=== PATIENT | female | born 1970 | race Caucasian/White ===

== ENCOUNTER → 2025-10-16 22:59 | Outpatient (REF) | payer SELFPAY ==
--- OUTSIDE RECORDS SUMMARY | 2025-10-16 23:03 | XMS RPT_ITS | CCD ---
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 UNIVERSAL PROTOCOL / SAFETY CHECKLIST Procedure to be Performed: colposcopy, LEEP loop electrosurgical excision procedure conization of cervix Sign In: A Moment of CARE was completed. Personnel directly involved with the procedure wore the appropriate PPE (Personal Protective Equipment). No special equipment needed. Patient/Surrogate Stated/Verified: PATIENT VERIFIED(optional for EMERGENT procedures): Patient name, Date of , Relevant allergies, and The intended procedure Time Out Communication: Intended patient and procedure match the source documents. Consent documented and matches the intended procedure. Relevant labs, photos, and/or imaging studies have been reviewed. No correct side/site applicable for marking and visibility. No medications required for procedure. No fire risk assessment and interventions applicable. No implant(s) inserted. Sign Out: SIGN OUT (optional for EMERGENT procedures): All specimen containers correctly labeled. All instruments, equipment, possible retained foreign bodies accounted for. Post-procedure follow-up management communicated and Plan of Care Visit completed when applicable. PROCEDURE NOTE: Colposcopy used to visualize cervix. Acetic acid and lugols solution applied to identify the dysplastic area. Inspection indicates that it is reasonable to proceed with office LEEP. Patient and personnel in the room all donned N95 masks. Smoke evacuation was operating normally during the procedure. Cervix anesthetized with 10 mL lignospan (2% lidocaine and epinephrine) 1:100,000 (1.8mL/vial) using a 27gauge Potocky needle. LEEP conization performed using 1 X 1 loop(s) with wide area excised between 9-12 due to prior EMY II biopsy site. ECC done. Hemostasis was achieved with Monsel's solution, pressure, and electrocautery. Procedure Summary: Patient tolerated procedure well. ASSESSMENT: Encounter Diagnosis ICD-10-CM 1. 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 PLAN: Specimens labeled and sent to Pathology. Will notify patient of results in 1-2 weeks. Post-procedure instructions reviewed and written material given to the patient. MD Soniya Deleon Sharon A, MD 12/09/2024 1:45 PM Signed YOUR RECOVERY It may take a few weeks for your cervix to heal. While your cervix heals, you may have: Vaginal bleeding (less than a normal menstrual period) Mild cramping A brown-black vaginal discharge (similar to coffee grounds) which is a result of the paste used to help stop bleeding from the procedure Do NOT put anything in the vagina for 4 weeks after your LEEP (Loop Electrosurgical Excision Procedure). This includes: tampons douches and refraining from having sexual intercourse If you have any discomfort, you may take an over the cou (more content not included)... Normal [facility] SURGICAL PATHOLOGYon 025 CASE REPORT Normal [facility] Comment on above: Order Comment: Speci men Type: TISSUE SPECIMENOrdering Facility: [facility] Address: [address] [place] [address] Result Comment: Surg [facility] Pathology Report Case: [id number] Authorizing Provider: Caren Byrnes MD Collected: 12/09/2024 12:00 AM Ordering Location: [facility] Received: 12/09/2024 08:52 PM Pathologist: Alejandro Ellison MD Specimens: A) - Cervix, LEEP, LEEP B) - Endocervix, Curettings, ECC Performed By: #### S ####[facility] LABCLIA [id number] [place] [address] [place] CLINICAL HISTORY emy ii Normal [facility] Comment on above: Order Comment: Speci men Type: TISSUE SPECIMENOrdering Facility: [facility] Address: [address] [place] [address] Performed By: #### S ####[facility] LABCLIA [id number] [address] STATES OF [facility] FINAL DIAGNOSIS Normal [facility] Comment on above: Order Comment: Speci men Type: TISSUE SPECIMENOrdering Facility: [facility] Address: [address] [place] [address] Result Comment: A. C ervix, LEEP: - Benign transformation zone. B. Endocervix, curettings: - Benign endocervical epithelium. ACV/bs 12/11/2024 Performed By: #### S ####[facility] [id number] [address] [place] FINAL PERFORMING LAB Normal [facility] Comment on above: Order Comment: Speci men Type: TISSUE SPECIMENOrdering Facility: [facility] Address: [address] [place] [address] Result Comment: Diag nostic interpretation performed at: [facility], [address] [place] [address] CLIA# [id number] Art History Professor: Donal Cooley MD Performed By: #### S ####[facility] LABCLIA [id number] [id number] OF [facility] GROSS DESCRIPTION A. Cervix, LEEP Normal Cl [facility] Comment on above: Order Comment: Speci men Type: TISSUE SPECIMENOrdering Facility: [facility] Address: [address] [place], [place] [address] [address] Result Comment: Rece ived in formalin labeled LEEP is a 2.0 x 1.5 x 0.9 cm unoriented segment of fields-pink, rubbery, highly cauterized cervical tissue. The ectocervical mucosa is fields-pink and focally hemorrhagic. A 0.5 cm patent, ovoid potential cervical os is identified. The ectocervical rim is inked blue. The specimen is sectioned and entirely submitted in cassettes A1-A2. [place] [address] JXM 12/10/24 12:20 PM B. Endocervix, Curettings Received in formalin are multiple fields-brown, soft feathery segments of tissue admixed with mucinous material aggregating to 2.5 x 1.3 x 0.1 cm. Totally submitted in one cassette. [facility] December 09, 2024 10:38 PM [place] [address] Performed By: #### S ####[facility]CLIA [id number] [address] OF [facility] Magnus 11-07-2024 CNPN Telephone (GYNMN) JUAN R MOORE ([id number]) 1970 F [facility] Date Time Provider Department 11/07/24 CAREN BYRNES GYNMN During your visit today, we recorded the following information about you: Caren Byrnes MD 11/07/2024 4:28 PM Signed patient needs this appt scheduled soniya MondayDecember 09 10am office leep she is aware already Fernie Najera 11/08/2024 11:20 AM Signed Done Fernie Talbot Allergies As of Date: 11/07/2024 Noted Allergy Reaction BEES 03/19/2008 7 - Swelling Comments: hivkarrie HAHNWI 09/05/2024 4 - Hives 9 - Itching 14 - Other: See Comments Date Reviewed: 11/07/2024 Reviewed by: Sherine Castro MD - Fully Assessed Prescriptions as of 11/08/2024 - BIOTIN ORAL Take by mouth. - cholecalciferol, vitamin D3, (VITAMIN D3 ORAL) Take by mouth. - vitamin B complex (B COMPLEX ORAL) Take by mouth. - CALCIUM ORAL Take by mouth. - ASCORBIC ACID (VITAMIN C ORAL) Take by mouth. - MULTIVIT-MINERALS/JULIO CÉSAR ANEESH FUM (MULTI VITAMIN ORAL) Take by mouth. Problem List As Of Date 11/07/2024 Noted Resolved ACUTE PHARYNGITIS [J02.9] 08/05/2008 05/19/2009 Dental caries on pit and fissure surface penetr*12/07/2016 ASCUS with positive high risk HPV cervical [R87*10/14/2024 Encounter Status:Closed by FERNIE NAJERA on 11/08/24 [facility] Juan M 10-31-2024 CNOV Office Visit ([facility] ) JUAN R MOORE ([id number]) 1970 F [facility] Date Time Provider Department 10/31/24 3:50 PM SHERINE CASTRO [facility] During your visit today, we recorded the following information about you: Pulse Blood pressure Weight 71/minute 138/85 61.9 kg Sherine Castro MD 11/07/2024 12:43 PM Signed Juan R Rochaeaston is a 54 year old female who presents today for a Physical exam. 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 Byrnes Follow up colpo to determine next steps Health Maintenance: PAP: Her last Pap smear was 09/12- ascus + HPV. Colposcopy showing high grade lesion, seeing marine cargo specialist to review treatment options 11/07 MAMMOGRAM: Her last mammogram was 08/11. DUE. Colonoscopy: DUE Review of Systems: The remainder of the review of systems is negative. Current Medications and allergies reviewed. ACTIVE PROBLEM LIST Dental Caries On Pit and Fissure Surface Penetrating into Dentin Ascus With Positive High Risk Hpv Cervical PHYSICAL EXAMINATION: BP 138/85 (BP Site: Right Arm, BP Position: Sitting, BP Cuff Size: Regular Adult) Pulse 71 Wt 61.9 kg (136 lb 7.4 oz) LMP (LMP Unknown) BMI 20.15 kg/m? General: healthy, alert, cooperative, pleasant, in no acute distress HEENT: Normocephalic, Eyes: conjunctiva/corneas normal, EOMI, Right TM: clear with good landmarks, nl light reflex Left TM: clear with good landmarks, nl light reflex Nares: clear, OP: moist without lesions, teeth in good repair Neck: Supple, no lymphadenopathy, no thyroidmegaly CV: regular rate and rhythm, without murmur Lungs: clear to auscultation, without rales or wheeze, good air exchange Back: straight and symmetric Ext: no edema in LE bilaterally, good distal pulses Skin: Clear without rash ASSESSMENT/PLAN: 1. Wellness examination - ICD9: V70.0, ICD10: Z00.00 (primary diagnosis) - Counseled on healthy diet and regular exercise - Colorectal cancer screening - ordered Cologuard - Breast cancer screening - ordered mammogram - Follow up for annual exam in one year - COMPREHENSIVE METABOLIC PANEL - COMPLETE BLOOD COUNT - LIPID PANEL BASIC 2. Screening for colon cancer - ICD9: V76.51, ICD10: Z12.11 - COLOGUARD Sherine Castro MD Allergies As of Date: 10/31/2024 Noted Allergy Reaction BEES 03/19/2008 7 - Swelling Comments: hives KIWI 09/05/2024 4 - Hives 9 - Itching 14 - Other: See Comments Date Reviewed: 10/31/2024 Reviewed by: Sherine Castro MD - Fully Assessed Reason for Visit: Physical [83] Cmt: Seeing CHAIR FINISHER due to bleeding-PAP done positive HBV-doing more with [facility] next step sinus infection few weeks ago-ok now Primary Visit Diagnosis:Wellness examination [Z00.00] Other Visit Diagnosis:Screening for colon cancer [Z12.11] Order(s):COLOGUARD [SQCOLGRD] Order #: [id number] COMPREHENSIVE METABOLIC PANEL [SQCMP] Order #: [id number] FUTURE COMPLETE BLOOD COUNT [SQCBC] Order #: [id number] FUTURE LIPID PANEL BASIC [SQLIPB] Order #: [id number] FUTURE Prescriptions as of 11/07/2024 - BIOTIN ORAL Take by mouth. - cholecalciferol, vitamin D3, (VITAMIN D3 ORAL) Take by mouth. - vitamin B complex (B COMPLEX ORAL) Take by mouth. - CALCIUM ORAL Take by mouth. - ASCORBIC ACID (VITAMIN C ORAL) Take by mouth. - MULTIVIT-MINERALS/JULIO CÉSAR ANEESH FUM (MULTI VITAMIN ORAL) Take by mouth. Problem List As Of Date 10/31/2024 Noted Resolved ACUTE PHARYNGITIS [J02.9] 08/05/2008 05/19/2009 Dental caries on pit and fissure surface penetr*12/07/2016 ASCUS with positive high risk HPV cervical [R87*10/14/2024 Level of Service: WELLNESS EXAMS EST 40-64 YRS [20280] Encounter Status:Closed by SHERINE CASTRO on 11/07/24 [facility] C[facility]N Telephone (GYNMN) JUAN R MOORE ([id number]) 1970 [facility] Date Time Provider Department 10/21/24 CAREN BYRNES GYNMN During your visit today, we recorded the following information about you: Caren Byrnes MD 10/21/2024 8:14 AM Signed Please call patient. Colposcopy shows a high grade lesion Not to worry, this is curable to prevent cancer There are a few options to manage Scheduled her for VV on Nov 07 at 4:15 pm to discuss options, route to reschedule if this does not work for her 10/31/2024 in [facility] with SHERINE CASTRO - Not at this time 11/07/2024 in [facility] with CAREN BYRNES - follow up EMY II Laura Ashton RN 10/21/2024 9:59 AM Signed SHAISTA: 10/14/24 ASSESSMENT: HPV effect and mild dysplasia Encounter Diagnosis ICD-10-CM 1. ASCUS with positive high risk HPV cervical R87.610 R87.810 2. Human papillomavirus (HPV) type 16 DNA detected in cervical specimen R87.810 SURGICAL PATHOLOGY PLAN: Specimens labeled and sent to Pathology. Will notify patient of results in 1-2 weeks. Post-procedure instructions reviewed and written material given to the patient. Requested Prescriptions No prescriptions requested or ordered in this encounter Future Appointments Date Time Provider Department Center 10/31/2024 3:50 PM Sherine Castro MD [facility] Caren Byrnes MD FVV: 11/07/24 Identified by name and . Spoke to patient. Informed her of Dr. Byrnes's message below: Colposcopy shows a high grade lesion Not to worry, this is curable to prevent cancer There are a few options to manage Scheduled her for VV on Nov 07 at 4:15 pm to discuss options, route to reschedule if this does not work for her -Patient states an understanding of instructions. Accepted VV with Dr. Byrnes 11/07/24. Laura Ashton RN Allergies As of Date: 10/21/2024 Noted Allergy Reaction BEES 03/19/2008 7 - Swelling Comments: hives KIWI 09/05/2024 4 - Hives 9 - Itching 14 - Other: See Comments Date Reviewed: 10/19/2024 Reviewed by: Leilani Estrella MA - Fully Assessed Primary Visit Diagnosis:ASCUS with positive high risk HPV cervical [R87.610, R87.810] Prescriptions as of 10/21/2024 - doxycycline monohydrate (MONODOX) 100 mg capsule Take 1 capsule by mouth two times a day for 7 days. - BIOTIN ORAL Take by mouth. - cholecalciferol, vitamin D3, (VITAMIN D3 ORAL) Take by mouth. - vitamin B complex (B COMPLEX ORAL) Take by mouth. - CALCIUM ORAL Take by mouth. - ASCORBIC ACID (VITAMIN C ORAL) Take by mouth. - MULTIVIT-MINERALS/JULIO CÉSAR ANEESH FUM (MULTI VITAMIN ORAL) Take by mouth. Problem List As Of Date 10/21/2024 Noted Resolved ACUTE PHARYNGITIS [J02.9] 08/05/2008 05/19/2009 Dental caries on pit and fissure surface penetr*12/07/2016 ASCUS with positive high risk HPV cervical [R87*10/14/2024 Encounter Status:Closed by LAURA ASHTON on 10/21/24 [facility] CNOVcameron 10-19-2024 CN Office Visit (EXPSTR ) JUAN R MOORE ([id number]) 1970 F [facility] Date Time Provider Department 10/19/24 2:20 PM KATIE SANTANA EXPSTR During your visit today, we recorded the following information about you: Temperature Pulse Respiration Blood pressure 98 degrees 53/minute 16/minute 132/69 Katie Santana PA-C 10/19/2024 3:07 PM Signed BP 132/69 Pulse (!) 53 Temp 36.7 ?C (98 ?F) (Temporal) Resp 16 LMP (LMP Unknown) SpO2 99% HISTORY OF PRESENT ILLNESS CC: Juan R is a 54 year old female who presents to the office today for evaluation of her Sinus Infection (Entered by patient. Her eyes and sinuses hurt along with pressure in her ears for 2 weeks. Has been using mucinex and a nasal spray. ) Onset: - Location - respiratory Duration -over the past 2 weeks Course - worsening, not improving Aggravated by -exertion, bending Alleviated by -none Treatment to date - OTC medications Risk Factors / Considerations - no known exposure Recent travel - none Pain scale - PAST HISTORIES FAMILY HISTORY Problem Relation Age of Onset Hypertension Mother Cancer Mother ovarian Diabetes Father Coronary Artery Disease Father Coronary Artery Disease Brother 38 cardiac Diabetes Brother Cervical Cancer Maternal Grandmother Social History Tobacco Use Smoking status: Former Current packs/day: 0.00 Types: Cigarettes Start date: 01/18/2002 Quit date: 01/18/2007 Years since quittin.7 Smokeless tobacco: Never Tobacco comments: infrequent smoker Vaping Use Vaping status: Never Used Substance Use Topics Alcohol use: Yes Comment: socially Drug use: Yes Comment: socially REVIEW OF SYSTEMS Constitutional - Negative, unless otherwise indicated in HPI Eyes - Negative, unless otherwise indicated in HPI ENT - Negative, unless otherwise indicated in HPI Cardiovascular - Negative, unless otherwise indicated in HPI Respiratory - Negative, unless otherwise indicated in HPI Gastrointestinal - Negative, unless otherwise indicated in HPI Genitourinary - Negative, unless otherwise indicated in HPI Musculoskeletal - Negative, unless otherwise indicated in HPI Integumentary - Negative, unless otherwise indicated in HPI Neurologic - Negative, unless otherwise indicated in HPI Psychiatric / Behavioral - Negative, unless otherwise indicated in HPI Endocrine - Negative, unless otherwise indicated in HPI Hematological / lymphatic - Negative, unless otherwise indicated in HPI Allergic / Immunologic - Negative, unless otherwise indicated in HPI PHYSICAL EXAM GENERAL - Patient is oriented to person, place, and time and well-developed, well-nourished, and in no distress. HEAD - Normocephalic and atraumatic. Tender to percussion over frontal maxillary sinus tenderness RIGHT EAR - External ear normal. Canal patent and non erythremic, TM intact, Middle ear space normal LEFT EAR - External ear normal Canal patent and non erythremic, TM intact, Middle ear space normal NOSE - Nose normal. MOUTH/THROAT - No erythema, No exudate, No tonsillar hypertrophy RIGHT EYE - Conjunctivae is normal. Sclera is non icteric LEFT EYE - Conjunctivae is normal. Sclera is non icteric NECK - Normal range of motion. Neck supple. No cervical lymph CARDIOVASCULAR - Normal rate, regular rhythm and normal heart sounds. PULMONARY - Effort normal and breath sounds normal. MUSCULOSKELETAL - Normal range of motion. NEUROLOGICAL - Patient is alert and oriented to person, place, and time. Gait normal. SKIN - Warm and dry. No rash or adventitious lesions noted PSYCH - Mood, memory, affect and judgment normal. IMPRESSION Sinusitis PLAN Doxycycline 100 mg twice daily for 7 days Continue Mucinex Tylenol or Motrin as needed Home going recommendations for symptoms were provided during counseling and on after visit summary All patient's questions were answered at this visit. Patient indicates understanding of discharge and medication instructions prior to discharge. Patient advised to return to contact their primary care physician if symptoms persist. Patient advised if symptoms suddenly worsen to call 911 or report to the emergency room. Patient discharged in stable condition. This note was dictated using [employer] speech recognition software and may contain some errors that were a result of the program not accurately transcribing what was dictated. Katie Santana PA-C 10/19/2024 3:05 PM Signed Adult Sinusitis Patient Education What is Sinusitis? Sinusitis [[id number]-tis] is inflammation of the sinuses or swelling of the lining of the sinus cavity or nose. During an infection the sinuses become blocked with fluid causing swelling of the lining of the sinuses. Symptoms: (viral and bacterial infections) Stuffy nose Runny nose Postnasal drip Fever Toothache Headache Tiredness Coug (more content not included)... Normal [facility] CNOVon 10-14-2024 CNOV Office Visit ([facility]CT[facility] ) JUAN R MOORE ([id number]) 1970 F [facility] Date Time Provider Department 10/14/24 10:00 AM CAREN BYRNES WCTRMN During your visit today, we recorded the following information about you: Blood pressure Weight Height 119/66 64.8 kg 1.753 m Caren Byrnes MD 10/14/2024 10:43 AM Signed Juan R Moore is a 54 year old female with No LMP recorded (lmp unknown). Patient is postmenopausal. who presents to abnormal cervical cancer screening clinic. 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 Patient is postmenopausal. test: n/a Consultation/referral equested by Dr. Arline Haines CNP for evaluation and counseling of patient with abnormal pap. My final recommendations will be communicated back to the requesting physician by way of shared Medical record or letter to requesting physician via US mail. We reviewed the patient's current and prior pap, biopsy and treatment history, HPV infection and vaccination status in detail today. Patient was counseled about the role of cytology and HPV testing in screening for cervical cancer, and the role of colposcopy in diagnosing high grade pre-cancer change that warrants intervention Explained that for patients with high grade pre-cancer change, treatment with LEEP or cold knife conization is usually the next step, and for those without high grade pre-cancer, continued close surveillance with annual pap and HPV testing is usually indicated. Discussed promotion of healthy lifestyle to boost immunity and reduce risk of progression. . Discussed role of Gardasil vaccination and recommended completion of series if indicated. Gardasil status na Explained what to expect during and after the procedure. Explained that we will contact her with results and plan of care. Updated problem list with cytology, histology, HPV results, vaccine history ACTIVE PROBLEM LIST Ascus With Positive High Risk Hpv Cervical - 10/14/2024 Comment: 08/2024 PAP ASCUS HPV POS 16 Dental Caries On Pit and Fissure Surface Penetrating into Dentin - 12/07/2016 Immunization History Administered Date(s) Administered COVID-19 original vaccine, age 12+ yr, monovalent ([employer] - PURPLE TOP) 12/08/2020 01/05/2021 09/23/2021 hepatitis B (HepB) vaccine, 3-dose series, age 20+ yr (ENGERIX-B, RECOMBIVAX HB) 05/13/2009 06/12/2009 11/16/2009 influenza (IIV3) vaccine, age 6 mo - 64 yr, trivalent (AFLURIA, FLULAVAL, FLUVIRIN, FLUZONE) 08/15/2014 influenza (IIV3) vaccine, trivalent, PF (AFLURIA, FLUARIX, FLULAVAL, FLUVIRIN, FLUZONE) 09/05/2024 influenza vaccine, unspecified formulation 08/17/2015 08/15/2016 08/22/2017 08/10/2018 08/19/2021 09/13/2022 09/12/2023 measles mumps rubella (MMR) vaccine (M-M-R II, PRIORIX) 04/08/2008 05/20/2008 tetanus diphtheria (Td) vaccine, age 7+ yr, 5 Lf tetanus, PF (TENIVAC) 10/08/2019 tetanus diphtheria pertussis (Tdap) vaccine, age 7+ yr (ADACEL, BOOSTRIX) 05/13/2009 zoster (RZV) vaccine, recombinant (SHINGRIX) 10/17/2022 Current Outpatient Medications on File Prior to Visit Medication Sig BIOTIN ORAL Take by mouth. cholecalciferol, vitamin D3, (VITAMIN D3 ORAL) Take by mouth. vitamin B complex (B COMPLEX ORAL) Take by mouth. CALCIUM ORAL Take by mouth. ASCORBIC ACID (VITAMIN C ORAL) Take by mouth. MULTIVIT-MINERALS/JULIO CÉSAR ANEESH FUM (MULTI VITAMIN ORAL) Take by mouth. 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 Keep between gum and cheek to absorb. (Patient not taking: Reported on 10/14/2024) albuterol HFA (PROAIR HFA) 90 mcg/actuation inhaler Inhale 2 Puffs by mouth every 4 hours as needed for wheezing/shortness of breath. Take as directed (Patient not taking: Reported on 10/14/2024) hydroquinone (ELDOQUIN FORTE) 4 % cream Apply to dark spots two times daily as needed for up to 6 weeks then stop it. (Patient not taking: Reported on 10/14/2024) ketoconazole (NIZORAL) 2 % cream Apply to affected area twice daily until clear. (Patient not taking: Reported on 10/14/2024) hydrocortisone 2.5 % cream Apply to scaly patches on face two times daily as needed for flares. Use 2 weeks on 1 week off (Patient not taking: Reported on 10/14/2024) No current facility-administered medications on file prior to visit. 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 Normal [facility] SURGICAL PATHOLOGYon 024 CASE REPORT Normal [facility] Comment on above: Order Comment: Speci men Type: TISSUE SPECIMENOrdering Facility: [facility] Address: [address] [place] [address] Result Comment: Surg ica Pathology Report Case: [id number] Authorizing Provider: Caren Byrnes MD Collected: 10/14/2024 12:00 AM [facility] Received: 10/14/2024 03:24 PM Pathologist: Russ Rodríguez MD Specimens: A) - Cervix, Biopsy, cervix 10-12 B) - Cervix, Biopsy, cervix 4 C) - Cervix, Biopsy, multiple D) - Endocervix, Curettings, ECC Performed By: #### S ####[facility] LABCLIA [id number] [place] [address] [place] CLINICAL HISTORY ascus hpv pos 16 Normal [facility] Comment on above: Order Comment: Speci men Type: TISSUE SPECIMENOrdering Facility: [facility] Address: [address] [place] [address] Performed By: #### S ####[facility] LABCLIA [id number] [place] [address] [place] FINAL DIAGNOSIS Normal [facility] Comment on above: Order Comment: Speci men Type: TISSUE SPECIMENOrdering Facility: [facility] Address: [address] [place] [address] Result Comment: A. U terus, cervix, 10-12:00, biopsy - High-grade squamous intraepithelial lesion (CIN2) B. Uterus, cervix, 4:00, biopsy - Benign squamous epithelium C. Uterus, cervix, multiple, biopsies - Inflamed squamous mucosa, no definite squamous intraepithelial lesion D. Uterus, endocervix, curettage - Benign endocervical tissue Performed By: #### S ####[facility] LABCLIA [id number] [place] [address] [place] FINAL PERFORMING LAB Normal [facility] Comment on above: Order Comment: Speci men Type: TISSUE SPECIMENOrdering Facility: [facility] Address: [address] [place] [address] Result Comment: Diag nostic interpretation performed at [facility], [address] [place] [address] CLIA# [id number] Art History Professor: Donal Cooley M.D. Performed By: #### S ####[facility] LABCLIA [id number] [address] STATES OF [facility] GROSS DESCRIPTION Normal [facility] Comment on above: Order Comment: Speci men Type: TISSUE SPECIMENOrdering Facility: [facility] Address: [address] [place] [address] Result Comment: A. C ervix, Biopsy Received in formalin are multiple pieces of fields-white, soft tissue aggregating to 0.7 x 0.1 x 0.1 cm. Totally submitted in one cassette. May not survive processing. B. Cervix, Biopsy Received in formalin is one piece of fields-white, soft mucosal covered tissue measuring 0.3 x 0.1 x 0.1 cm. Totally submitted in one cassette. May not survive processing. C. Cervix, Biopsy Received in formalin are multiple pieces of fields-white, soft mucosal covered tissue aggregating to 0.8 x 0.1 x 0.1 cm. Totally submitted in one cassette. May not survive processing. D. Endocervix, Curettings Received in formalin are multiple fields, soft feathery segments of tissue admixed with mucinous material aggregating to 0.8 x 0.8 x 0.1 cm. Totally submitted in one cassette. DB October 14, 2024 6:47 PM Gross examination performed at [facility], [address] [place] [address] Performed By: #### S ####[facility] LABCLIA [id number] [place] [address] [place] SURGICAL PATHOLOGYOrdered By : Marissa Trinidad on 09-16-2024 Case Report Surgical Pathology Report Case: [id number] Authorizing Provider: Caren Byrnes MD Collected: 09/13/2024 11:16 AM Ordering Location: Gynecology Received: 09/13/2024 01:19 PM Pathologist: Mairssa Trinidad MD Specimen: Endometrium, Biopsy, EMB [facility] Work Phone: Clinical History g2dwjPXxXZAmtCOpBJot M zsxrsTcDEScpFDgN0Mdyq ayEPgrLS1wOX5biIsfbJL anXAqUGBmCaYey0sje755 oFVnc8taASIMqrwnuUi0f ZulQ70rz3S4VyruT23ssK IuXOR4ZYQyTGXzoXPxLDC nONE0JABjqIQxQ2ysPTZg OQ1ykuujTSjhIYymOFEvv AN2TPYqmQGyO4PsEQBxSW ecIDObatn0EpYyVl6dfMY yeTcyMFxwYXJkXHBsYWlu EDJvZsBbDE6nnP6fwp7hH XVzYWwgYmxlZWRpbmdccG FyfQ== [facility] Work Phone: FINAL DIAGNOSIS x4ctuKDiFLHvaWIsOGkx M kqbwzTdMVFohXAeN5Oocm euQDkjKK0iGH8wcAmjlLB qlVDjWBVxAoOtr5esp381 wUZjk7lbIRCMionbhIt2g FaqL44mu7M3JmgcI50wdW TmGDL4NXDeHFYubXBnDHG uTYE6AIOazCQjR5ujRGYz KC7ihrpbDBneGGyuJAYqq XC2TCEwzDIzO7UmPAXlUR siUFXcmam0PiRzQq2vpLE yeTcyMFxwYXJkXHBsYWlu QENnTfFemTRqOBTvUEO2M AY6bwbsHQ9fj77ffTYvpV 6hYCSwm9VilYfaULRoIPM wjepujjVfrdIbtGK2neo7 pUU8dLLkNWN9lr1mEQvuE sGbFEsii2duQoqqLPE9 [facility] Work Phone: Gross Description t5uviFKxXTSwuEKaOBec M slngmSyKEIwmFXhA3Xhwt ujSLajBE0dFB3hwZhgpEW kdMVoIOKwVcKxd1wfm754 bTLyf0dlJVUKpkwjoCh7z NgtC41pp5H5CabaQ54qmH UxTQW5DRWvNQVomUVgGJV bQRN3VXRceXRzA4tgWOVo ZC1shilzXMwsJVtgHGLmh QZ8BUHwsKAmU8QfBNExSV ufHFAhtln6YpYuBt0erOM mdOhwXPgwJmibrUpjr2Gr dCBcXGlkIDUxMDAwIFxcb dosBTe8GOEvBLnuqMErJG 0ojIxfSpgjdBuul5OltBW cXGlkIDUxMDAyIFxcZGIg L1MAHXIuIbV5CVDaYIYmL Wq1VOy5CP2QXdVgYJL1JQ M7MWPsXRMhRQx8YLnaGO0 BYKG0KVirBfwqMOe7WJN2 PycmCJursMPjTCrvy5FcM yBcXGZsIFxcbmMgXFxmcn 1ccGFyZFxwbGFpblxmczI hESDfWXDqPT6rQOGyiFZp KUNSdW7gy0lihWUuGIKqu bRan3RfUFwbxNnvYBQbUi NqtBjdcA2dZbVeYHESAMB apBEkRWXruoGhq9MrDZpz biBhcmUgbXVsdGlwbGUgd URnQJJac5vrPBVni6E4OC ZmYVSqICZ8OXLkF28nhmW fSC4rIATbo5F1YYFdTX3c vOUsULagdWwiP3OrBQWpg z92ncJpIVAbkjwwtBSeB4 ecHOajtQojQfG1dxNvAgu spEQmTbUquAAoSwZqD83u TZJixRWdtFfmx0MqcYc8i RBcJReiRX7xQVPiRBCpJJ P8IO7lIZQefippBTKmSPJ ecdSRfh2sxyLyrKFzsE3k dZnjbxBlZTTdh3WfWROwS ENbL9ndjtBuEN9fDUEhoD 5pYywgOTUwMCBFdWNsaWQ eYQEoLuptL4uyoxClFC6a ABAFBGX4OCW8RJhqKIGuZ N9GRQ6zrT1zRFNpAiPvHY IwMjQgNToxMCBQTVxwYXJ oo8XyZClpiOuyTLDpCjD9 OTKfkGRpYBV6ZY1dhLfcK AKwP1LcY6SskkL6EGWaej 0= [facility] Work Phone: Performing Lab t4lrvRKtVUVwgVHgHyNo M RPvUEYhr1tcXWDwwJIuXy EwMzNcZnRuYmpcdWMxXGR iGpZlr2eim575bJYqn5ve LTNdMxP0lBQyRHIqeTJpH 303VSXsESqii7mqc1FgCM WnrJZtv9J4WIORhrkbaKm 4fGtdN25up6G1HjsiG6mr JWYwPVDiE1GqCC1fLKBaX lt7YZP8PGJ3ZKMsWFYgG1 BpKN3jRBRreNRkFBb3m2b oqByfHURlYKZ1t0niTDqk stFdTL6nzm5hdSl1y6uuy zEgRGVmYXVsdCBQYXJhZ3 CafGnaRu0xnOr6cEreIfz sIEK5Kca0QT5rpy33jnt7 zRwzHJBoonkcYxH8NNeaL WXgibdsIWq1VKehMFIbtN S4IUJuxVXiM1IpFRhxZB9 zrwl0BFD0LWqfVWXkJmZ9 NDBcaGVhZGVyeTcyMFxmb 843JMZ1YsHzPI6pF5Vmy3 D8wJ3glNGbNHJduUWrYnZ mPDCvwl2fqFVlNVltz8Ti AFZ6baE5kHHtrTZzGFWmS H89Uymus4BuFoxsh2VxF6 4btUK2FLyvl0etQT0rYrZ 5kuVzVZawc8gmdQ0zAmF2 MSwxBB8iAU1bHFItjA0vv mxjXHBnYnJkcmhlYWRccG sacoLtCt3aqKjgHBA7RRm iM5avdK5yTwI4LIrcT2vl uJ7qXKa8ZVltdQG2ZFNwf N9uNR5qgohvm8mnLFwaGI zpGHFvaoB0nrTlADHebWD fX5BggI9cGXZkUG9inuze o1wnHJT1NDlkBQFbDZK6P wMaLUTnx1Pxwnf1XhUxd0 RfyFZbVXknP22hy142RGL arpSdT8hyfOWblmqanEDy aatlCMwrvaK9WXKiKDYxO WluXGYxXGZzMjBcbGFuZz EwMzNcaGljaFxmMVxkYmN lMRZrANycH0wqXpZnBgSd BAXJnPHnau3leDchXZljd OWjdYLqxQK0bV1oSQXdhd Ovtz5iSUQdlNFDwNJ0BWx rlkRnM3koejbwJRG9OHFo KOJ6V2lrADYQskTvHQQqV QUpdKPgGDTDMHE0WPB8QL GhJQYNTZExAFY1OIT9XHW wOTRccGFyXHBhclxwYXJk XHBsYWluXGYwXGZzMjRcc WbwoN2rZcHdGiNnSXkdCF 2zXANeK8zveCPuNHUyVPY vR0wfHuThyH0xmIkaCYyj ZjJcZnMyMFxsdHJjaCBMY SHmebL9r5M0INgleALygn xmMVxmczIwXGxhbmcxMDM aLLjhT6pfGgXnDOTrsHuz JArns8DmSBNkUITkDnBxP DltNFQ2g4C3JFiarUMhuy TVRfFBKV3wpWLperekRL1 ELlxwbGFpblxmMVxmczIy OErqyvqzSWCyVLwhI0qgF sYbVGRpkQdvMVsmw3DqYC YxXGZzMjJccGFyfQ== [facility] Work Phone: [facility] Work Phone: UA DIP, URINE (POC)on 2023 BILIRUBIN UA (POCT) Negative Negative [facility] CLARITY UA (POCT) Clear [facility] COLOR UA (POCT) Yellow [facility] GLUCOSE UA (POCT) Negative Negative mg/dL [facility] Hemoglobin Ql (U) Small Abnormal Negative [facility] Interpretation and review of laboratory results Abnormal [facility] KETONE UA (POCT) Negative Negative mg/dL [facility] LEUKOCYTES UA (POCT) Negative Negative [facility] NITRITE UA (POCT) Negative Negative [facility] PH UA (POCT) 7.0 4.5 - 8.0 [facility] Protein Ql (U) Negative Negative mg/dL [facility] SPECIFIC GRAVITY UA (POCT) 1.015 1.005 - 1.030 [facility] UROBILINOGEN UA (POCT) 0.2 Normal E.U./dL [facility] Location:[facility], [address] [place] [address], [address] [place] [address] POINT OF CARE [facility] MG Breast Screeningon 2021 IMPRESSION: NEGATIVE There is no mammographic evidence of malignancy. A 1 year screening mammogram is recommended. Mallory coleman/maribel:07/26/2022 14:27:20 Foot Specialist(s): RT Arianna(R)(M), [facility] letter sent: Normal over 40 Mammogram BI-RADS: 1 Negative Multiple national specialty organizations have released breast cancer screening guidelines for women at average risk for developing breast cancer - guidelines that are based on both evidence and opinion, yet differ on when to start and how often to screen for breast cancer. With representation from Breast Imaging, Internal Medicine, Women's Health, Family Medicine, and Medical/Surgical Oncology, the [facility] has carefully reviewed the data and reached the following consensus: 1) All women should engage in shared decision-making with their providers to decide when to start and how often to screen; 2) All women should have the opportunity to start screening mammography at age 40; 3) For women ages 45-55, we recommend annual screening mammograms; 4) For women ages 55 and over, we support both the transition from an annual to a biennial interval if this aligns more with patient's values and preferences, or continuation with annual screening; 5) All women should discuss with their providers when to stop screening mammograms. Authorization Rep: Maribel Transcribe Date/Time: Jul 26 2022 8:09A Dictated by: MALLORY PRATT MD This examination was interpreted and the report reviewed and electronically signed by: MALLORY PRATT MD on Jul 26 2022 2:27PM [facility] DIVISION OF RADIOLOGY * * *Final Report* * * DATE OF EXAM: Jul 26 2022 8:16AM [facility] 0581 - CAM SCREENING / PROCEDURE REASON: Encounter for screening mammogram for breast cancer * * * * Physician Interpretation * * * * RESULT: #[id number] - CAM SCREENING BILATERAL DIGITAL SCREENING MAMMOGRAM WITH CAD: 07/26/2022 HISTORY: Encounter For Screening Mammogram For Breast Cancer /Screening Mammogram-Patient reports NO symptoms. RESULT: TECHNIQUE: The study was acquired using full field digital technology and interpreted from soft copy. Current study was also evaluated with a Computer Aided Detection (CAD). Comparison is made to exams dated: 01/25/2017 mammogram - [facility], 08/05/2015 mammogram, and 02/20/2013 mammogram - [facility]. The tissue of both breasts is heterogeneously dense. This may lower the sensitivity of mammography. No significant masses, calcifications, or other findings are seen in either breast. There has been no significant interval change. DIVISION OF RADIOLOGY Provider, [facility] 07/26/[facility]22 * * *Final Report* * * DATE OF EXAM: Jul 26 2022 8:16AM [facility] 0581 - [facility] SCREENING / PROCEDURE REASON: Encounter for screening mammogram for breast cancer * * * * Physician Interpretation * * * * RESULT: #[id number] - [facility] SCREENING BILATERAL DIGITAL SCREENING MAMMOGRAM WITH CAD: 07/26/2022 HISTORY: Encounter For Screening Mammogram For Breast Cancer /Screening Mammogram-Patient reports NO symptoms. RESULT: TECHNIQUE: The study was acquired using full field digital technology and interpreted from soft copy. Current study was also evaluated with a Computer Aided Detection (CAD). Comparison is made to exams dated: 01/25/2017 mammogram - [facility], 08/05/2015 mammogram, and 02/20/2013 mammogram - [facility]. The tissue of both breasts is heterogeneously dense. This may lower the sensitivity of mammography. No significant masses, calcifications, or other findings are seen in either breast. There has been no significant interval change. IMPRESSION IMPRESSION: NEGATIVE There is no mammographic evidence of malignancy. A 1 year screening mammogram is recommended. Mallory coleman/maribel:07/26/2022 14:27:20 Foot Specialist(s): RT Arianna(Mikayla)(M), [facility] letter sent: Normal over 40 Mammogram BI-RADS: 1 Negative Multiple national specialty organizations have released breast cancer screening guidelines for women at average risk for developing breast cancer - guidelines that are based on both evidence and opinion, yet differ on when to start and how often to screen for breast cancer. With representation from Breast Imaging, Internal Medicine, Women's Health, Family Medicine, and Medical/Surgical Oncology, the [facility] has carefully reviewed the data and reached the following consensus: 1) All women should engage in shared decision-making with their providers to decide when to start and how often to screen; 2) All women should have the opportunity to start screening mammography at age 40; 3) For women ages 45-55, we recommend annual screening mammograms; 4) For women ages 55 and over, we support both the transition from an annual to a biennial interval if this aligns more with patient's values and preferences, or continuation with annual screening; 5) All women should discuss with their providers when to stop screening mammograms. Authorization Rep: Maribel Transcribe Date/Time: Jul 26 2022 8:09A Dictated by: MALLORY PRATT MD This examination was interpreted and the report reviewed and electronically signed by: MALLORY PRATT MD on Jul 26 2022 2:27PM [facility] Radiology Study observation (narrative) [facility] MG Breast ScreeningOrdered B y: [facility] Provider on 07-26-2022 [facility] Vital Signs Date Time Vital Sign Value Performing Clinician Facility 06-11-2025 10:34-0400 Diastolic blood pressure 96 mm[Hg] Wortham Babuscak TAKE OUT WAITER.MAIL DELIVERER Work Phone: [facility] Comment on above: manual 06-11-2025 10:34-0400 Systolic blood pressure 144 mm[Hg] Arline Babuscak TAKE OUT WAITER.MAIL DELIVERER Work Phone: [facility] Comment on above: manual 06-11-2025 10:22-0400 Body height 175.3 cm Arline Babuscak TAKE OUT WAITER.MAIL DELIVERER Work Phone: [facility] 06-11-2025 10:22-0400 Body mass index (BMI) [Ratio] 20.58 kg/m2 Arline Babuscak TAKE OUT WAITER.MAIL DELIVERER Work Phone: [facility] 06-11-2025 10:22-0400 Body weight 63.2 kg Wortham Babuscak TAKE OUT WAITER.MAIL DELIVERER Work Phone: [facility] 04-19-2025 11:56-0400 Diastolic blood pressure 75 mm[Hg] Henna Range TAKE OUT WAITER.MAIL DELIVERER Work Phone: [facility] 04-19-2025 11:56-0400 Systolic blood pressure 149 mm[Hg] Henna Range TAKE OUT WAITER.MAIL DELIVERER Work Phone: [facility] 04-19-2025 11:54-0400 Body temperature 97.9 [degF] Henna Range TAKE OUT WAITER.MAIL DELIVERER Work Phone: [facility] 04-19-2025 11:54-0400 Heart rate 67 /min Henna Range TAKE OUT WAITER.MAIL DELIVERER Work Phone: [facility] 04-19-2025 11:54-0400 SaO2% (BldA) [Mass fraction] 98 % Henna Range TAKE OUT WAITER.MAIL DELIVERER Work Phone: [facility] 01-10-2025 09:03-0500 Body mass index (BMI) [Ratio] 21.03 kg/m2 Fely Braun TAKE OUT WAITER.MAIL DELIVERER Work Phone: [facility] 01-10-2025 09:03-0500 Body weight 64.6 kg Fely Braun TAKE OUT WAITER.MAIL DELIVERER Work Phone: [facility] 01-10-2025 09:03-0500 Diastolic blood pressure 60 mm[Hg] Fely Braun TAKE OUT WAITER.MAIL DELIVERER Work Phone: [facility] 01-10-2025 09:03-0500 Systolic blood pressure 122 mm[Hg] Fely Braun TAKE OUT WAITER.MAIL DELIVERER Work Phone: [facility] 12-09-2024 13:09-0500 Body height 175.3 cm Caren Byrnes MD Work Phone: [facility] 12-09-2024 13:09-0500 Body mass index (BMI) [Ratio] 20.9 kg/m2 Caren Byrnes MD Work Phone: [facility] 12-09-2024 13:09-0500 Body weight 64.2 kg Caren Byrnes MD Work Phone: [facility] 12-09-2024 13:09-0500 Diastolic blood pressure 67 mm[Hg] Caren Byrnes MD Work Phone: [facility] 12-09-2024 13:09-0500 Systolic blood pressure 142 mm[Hg] Caren Byrnes MD Work Phone: [facility] 10-31-2024 15:56-0500 Body mass index (BMI) [Ratio] 20.15 kg/m2 Sherine Castro MD Work Phone: [facility] 10-31-2024 15:56-0500 Body weight 61.9 kg Sherine Castro MD Work Phone: [facility] 10-31-2024 15:56-0500 Diastolic blood pressure 85 mm[Hg] Sherine Castro MD Work Phone: [facility] 10-31-2024 15:56-0500 Heart rate 71 /min Sherine Castro MD Work Phone: [facility] 10-31-2024 15:56-0500 Systolic blood pressure 138 mm[Hg] Sherine Castro MD Work Phone: [facility] 10-19-2024 14:49-0500 Body temperature 98.01 [degF] Katie Kulow PA-C Work Phone: [facility] 10-19-2024 14:49-0500 Diastolic blood pressure 69 mm[Hg] Katie Kulow PA-C Work Phone: [facility] 10-19-2024 14:49-0500 Heart rate 53 /min Katie Kulow PA-C Work Phone: [facility] 10-19-2024 14:49-0500 Respiratory rate 16 /min Katie Kulow PA-C Work Phone: [facility] 10-19-2024 14:49-0500 SaO2% (BldA) [Mass fraction] 99 % Katie Kulow PA-C Work Phone: [facility] 10-19-2024 14:49-0500 Systolic blood pressure 132 mm[Hg] Katie Kulow PA-C Work Phone: [facility] 10-14-2024 09:39-0500 Body height 175.3 cm Caren Byrnes MD Work Phone: [facility] 10-14-2024 09:39-0500 Body mass index (BMI) [Ratio] 21.1 kg/m2 Caren Byrnes MD Work Phone: [facility] 10-14-2024 09:39-0500 Body weight 64.8 kg Caren Byrnes MD Work Phone: [facility] 10-14-2024 09:39-0500 Diastolic blood pressure 66 mm[Hg] Caren Byrnes MD Work Phone: [facility] 10-14-2024 09:39-0500 Systolic blood pressure 119 mm[Hg] Caren Byrnes MD Work Phone: [facility] 09-13-2024 10:21-0400 Body mass index (BMI) [Ratio] 20.98 kg/m2 Main Work Phone: [facility] 09-13-2024 10:21-0400 Body weight 62.6 kg Main Work Phone: [facility] 09-13-2024 10:21-0400 Diastolic blood pressure 70 mm[Hg] Main Work Phone: [facility] 09-13-2024 10:21-0400 Systolic blood pressure 110 mm[Hg] Main Work Phone: [facility] 09-05-2024 08:13-0400 Body mass index (BMI) [Ratio] 21.72 kg/m2 Wortham Babuscak TAKE OUT WAITER.MAIL DELIVERER Work Phone: [facility] 09-05-2024 08:13-0400 Body weight 64.8 kg Arline Babuscak TAKE OUT WAITER.MAIL DELIVERER Work Phone: [facility] 09-05-2024 08:13-0400 Diastolic blood pressure 65 mm[Hg] Arline Babuscak TAKE OUT WAITER.MAIL DELIVERER Work Phone: [facility] 09-05-2024 08:13-0400 Systolic blood pressure 139 mm[Hg] Arline Babuscak TAKE OUT WAITER.MAIL DELIVERER Work Phone: [facility] 10-17-2023 10:47-0500 Body temperature 97.9 [degF] Carly Holzheimer TAKE OUT WAITER.MAIL DELIVERER Work Phone: [facility] 10-17-2023 10:47-0500 Diastolic blood pressure 83 mm[Hg] Carly Holzheimer TAKE OUT WAITER.MAIL DELIVERER Work Phone: [facility] 10-17-2023 10:47-0500 Heart rate 74 /min Carly Holzheimer TAKE OUT WAITER.MAIL DELIVERER Work Phone: [facility] 10-17-2023 10:47-0500 Systolic blood pressure 171 mm[Hg] Carly Holzheimer TAKE OUT WAITER.MAIL DELIVERER Work Phone: [facility] 03-11-2023 13:11-0400 Body temperature 97.9 [degF] Anjum Washington TAKE OUT WAITER.MAIL DELIVERER Work Phone: [facility] 03-11-2023 13:11-0400 Diastolic blood pressure 70 mm[Hg] Anjum Washington TAKE OUT WAITER.MAIL DELIVERER Work Phone: [facility] 03-11-2023 13:11-0400 Heart rate 58 /min Anjum Washington TAKE OUT WAITER.MAIL DELIVERER Work Phone: [facility] 03-11-2023 13:11-0400 Respiratory rate 16 /min Anjum Washington TAKE OUT WAITER.MAIL DELIVERER Work Phone: [facility] 03-11-2023 13:11-0400 Systolic blood pressure 113 mm[Hg] Anjum Washington TAKE OUT WAITER.MAIL DELIVERER Work Phone: [facility] 10-17-2022 13:21-0500 Diastolic blood pressure 83 mm[Hg] Sherine Castro MD Work Phone: [facility] 10-17-2022 13:21-0500 Heart rate 55 /min Sherine Castro MD Work Phone: [facility] 10-17-2022 13:21-0500 Systolic blood pressure 130 mm[Hg] Sherine Castro MD Work Phone: [facility] 10-17-2022 13:-0500 Body temperature 97.7 [degF] Sherine Castro MD Work Phone: [facility] 10-17-2022 13:0500 Body weight 58.92 kg Sherine Castro MD Work Phone: [facility] Encounters Encounter Date Encounter Type Care Provider Facility Start: 09-24-2025 End: 09-24-2025 ambulatory ARLINE HAINES Facility:[facility] Start: 09-24-2025 Encounter for gynecological examination (general) (routine) without abnormal findings ARLINE BABUSCAK [facility] Start: 08-21-2025 ambulatory SHERINE CASTRO Facility:[facility] Start: 08-15-2025 End: 08-15-2025 ambulatory SHERINE S[facility] Facility:[facility] Start: 06-18-2025 End: 06-20-2025 Follow-up encounter Wortham Gwendolyn TAKE OUT WAITER.MAIL DELIVERER Work Phone: [facility] Start: 06-11-2025 End: 06-11-2025 Patient encounter procedure Wortham Babuscak TAKE OUT WAITER.MAIL DELIVERER Work Phone: [facility] Comment on above: Screening for cervic al cancer (Primary Dx) Start: 06-11-2025 End: 06-12-2025 ambulatory ARLINE BABUSCAK Facility:[facility] Start: 04-19-2025 End: 04-19-2025 Patient encounter procedure Henna Range TAKE OUT WAITER.MAIL DELIVERER Work Phone: [facility] Comment on above: Bacterial sinusitis (Primary Dx); Antibiotic-induced yeast infection Start: 04-19-2025 End: 04-19-2025 ambulatory HENNA RANGE Facility:[facility] Start: 01-10-2025 End: 01-10-2025 ambulatory SHERINE CASTRO Facility:[facility] Start: 01-10-2025 End: 01-10-2025 Patient encounter procedure Fely Haibach TAKE OUT WAITER.MAIL DELIVERER Work Phone: Gynecology Comment on above: S/P LEEP (Primary Dx ) Start: 12-12-2024 End: 12-12-2024 Telephone encounter Caren Byrnes MD Work Phone: Gynecology Start: 12-09-2024 End: 12-10-2024 ambulatory SHERINE VERNON Facility:[facility] Start: 12-09-2024 End: 12-09-2024 Patient encounter procedure Caren Byrnes MD Work Phone: [facility] Comment on above: EMY II (cervical int raepithelial neoplasia II) (Primary Dx) Start: 11-07-2024 End: 11-07-2024 ambulatory Caren Byrnes MD Work Phone: Gynecology Comment on above: EMY II (cervical int raepithelial neoplasia II) (Primary Dx) Start: 11-07-2024 End: 11-07-2024 Telemedicine consultation with patient Caren Byrnes MD Work Phone: Gynecology Start: 11-07-2024 End: 11-08-2024 Telephone encounter Caren Byrnes MD Work Phone: Gynecology Start: 11-02-2024 End: 11-02-2024 Letter encounter [facility] Start: 10-31-2024 End: 10-31-2024 ambulatory SHERINE CASTRO Facility:[facility] Start: 10-31-2024 End: 10-31-2024 Patient encounter status Sherine Castro MD Work Phone: [facility] Work Phone: Start: 10-31-2024 End: 10-31-2024 Periodic preventive med est patient 40-64yrs Sherine Castro MD Work Phone: Family Medicine Comment on above: Wellness examination (Primary Dx); Screening for colon cancer Start: 10-21-2024 End: 10-21-2024 Telephone encounter Caren Byrnes MD Work Phone: Gynecology Start: 10-19-2024 End: 10-19-2024 ambulatory SHERINE CASTRO Facility:[facility] Start: 10-19-2024 End: 10-19-2024 Patient encounter procedure Katie Santana PA-C Work Phone: [facility] Comment on above: Sinusitis, unspecifi ed chronicity, unspecified location (Primary Dx) Start: 10-14-2024 End: 10-14-2024 ambulatory ARLINE HAINES Facility:[facility] Start: 10-14-2024 End: 10-14-2024 Patient encounter procedure Caren Byrnes MD Work Phone: [facility] Comment on above: ASCUS with positive high risk HPV cervical (Primary Dx); Human papillomavirus (HPV) type 16 DNA detected in cervical specimen Start: 09-13-2024 End: 09-13-2024 Patient encounter procedure Buggy Ladle Tender [facility] Work Phone: Gynecology Comment on above: Postmenopausal bleed ing (Primary Dx) Start: 09-05-2024 End: 09-05-2024 Patient encounter procedure Arline Haines TAKE OUT WAITER.MAIL DELIVERER Work Phone: [facility] Comment on above: PMB (postmenopausal bleeding) (Primary Dx); Abdominal discomfort; Screening for cervical cancer; Screen for STD (sexually transmitted disease) Start: 08-07-2024 End: 08-12-2024 ambulatory Sherine Castro MD Work Phone: Internal [place] [id number] Start: 10-17-2023 End: 10-17-2023 Patient encounter procedure Carly Granados TAKE OUT WAITER.MAIL DELIVERER Work Phone: [facility] Comment on above: Acute frontal sinusi tis, recurrence not specified (Primary Dx); Acute cough Start: 08-30-2023 ambulatory Sherine Dorsey Work Phone: Internal [facility] Start: 03-11-2023 End: 03-11-2023 Patient encounter procedure Anjum Delarosa TAKE OUT WAITER.MAIL DELIVERER Work Phone: [facility] Comment on above: Acute otitis media, right (Primary Dx); Antibiotic-induced yeast infection Start: 02-08-2023 Letter encounter Jose Alfredo mcneal Start: 11-03-2022 ambulatory Sherine Dorsey Work Phone: [facility] Comment on above: EHP Form Start: 10-17-2022 End: 10-17-2022 Patient encounter status Sherine Castro MD Work Phone: [facility] Start: 10-17-2022 End: 10-17-2022 Periodic preventive med est patient 40-64yrs Sherine Castro MD Work Phone: [facility] Comment on above: Wellness examination (Primary Dx); Screening for diabetes mellitus (DM); Screening, lipid; Screening for colon cancer; Encounter for immunization Start: 07-26-2022 Documentation procedure Mammog edmund Coordinator [facility] Start: 07-26-2022 Letter encounter Mammography Coordinator [facility] Department Start: 07-26-2022 End: 07-26-2022 Subsequent hospital visit by physician Screen Mamm[facility] Mammography Comment on above: Encounter for screen ing mammogram for breast cancer [Z12.31] Start: 06-01-2022 End: 06-01-2022 Patient encounter procedure Suzanne Gómez MD Work Phone: Dermatology Comment on above: Lentigines (Primary Dx); Multiple benign nevi; Romero angioma; Seborrheic keratosis; Seborrheic dermatitis Start: 05-12-2022 [facility] Start: 05-06-2021 End: 05-06-2021 Letter encounter [facility] Start: 02-14-2021 End: 02-14-2021 Orders Only Keeley Hull Work Phone: [facility] Internal Medicine Start: 02-04-2021 End: 02-04-2021 Letter encounter [facility] Procedures Date Procedure Procedure Detail Performing Clinician Start: 09-13-2024 SURGICAL PATHOLOGY Juan on Conner Byrnes MD Work Phone: Start: 09-13-2024 Saline infus sonohysterography w/color doppler Wortham Gwendolyn SHAH Work Phone: Start: 09-05-2024 Urnls dip stick/tabl et rgnt auto w/o microscopy Arline Haines APRN.MAIL DELIVERER Work Phone: Start: 10-21-2022 Lipid 1996 panel - S keny or Plasma Sherine Castro MD Work Phone: Start: 07-26-2022 End: 07-26-2022 Mammography Bulk Order Provider Start: 10-12-2021 Adult depression scr eening assessment Suzanne Gómez MD Work Phone: Start: 01-25-2017 Mammography Suzanne vela MD Work Phone: Start: 10-08-2013 Microscopic observat ion [Identifier] in Cervix by Cyto stain Plan of Treatment Date Care Activity Detail Author Start: 10-08-2029 Urine microalbumin profile [facility] Start: 11-21-2027 Screening for malignant neoplasm of colon [facility] Start: 10-21-2027 Lipid 1996 panel - Serum or Plasma Lipid Screening [facility] Start: 10-21-2027 Lipid panel Lipid Screening [facility] Start: 10-21-2027 LIPID SCREEN LIPID SCREEN [facility] Start: 06-11-2026 Screening for malignant neoplasm of cervix Cervical Cancer Screening [facility] Start: 10-31-2025 Covid-19 Vaccine () Covid-19 Vaccine () [facility] Comment on above: Postponed from 07/21/2024 (Declined at t his time) Start: 10-21-2025 DIABETES SCREEN DIABETES SCREEN [facility] Start: 10-21-2025 Diabetes Screening Diabetes Screening [facility] Start: 09-24-2025 End: 09-24-2025 Patient encounter procedure 09/24/2025 8:30 AM EST Office Visit [facility] [address] [address] Arline Haines APRN.MAIL DELIVERER [address] [place] [address] REPEAT PAP [facility] Comment on above: REPEAT PAP Start: 09-05-2025 Screening for malignant neoplasm of cervix Cervical Cancer Screening [facility] Start: 08-27-2025 End: 08-27-2025 Patient encounter procedure 08/27/2025 1:00 PM EDT Office Visit [facility] [address] [address] Marielle Patel MD [address] [place] [address] JOINT PAIN [facility] Comment on above: JOINT PAIN Start: 07-21-2025 Influenza vaccination Influenza Vaccine (#1) [facility] Start: 06-11-2025 End: 06-11-2025 Patient encounter procedure [facility] Comment on above: pap/hpv testing Start: 01-10-2025 End: 01-10-2025 Patient encounter procedure 01/10/2025 9:00 AM EST Office Visit Gynecology [address] [place] [phone] Fely Braun, ANNE MARIE.MAIL DELIVERER [address] [place] [address] leep follow up Gynecology Comment on above: leep follow up Start: 12-09-2024 End: 12-09-2024 Patient encounter procedure 12/09/2024 1:30 PM EST Office Visit [facility] [address] [address] Caren Byrnes MD [address] [place] [address] MondayDecember 09 10am office leepm per provider ( 10am not available) pt confirmed 1:30pm [facility] Comment on above: MondayDecember 09 10am office leepm per provider ( 10am not available) pt confirmed 1:30pm Start: 11-07-2024 End: 11-07-2024 Follow-up encounter 11/07/2024 4:15 PM EST [facility] [address] [address] Caren Byrnes MD [address] [place] [address] follow up EMY II Gynecology Comment on above: follow up [facility]Y II Start: 10-31-2024 End: 10-31-2024 Patient encounter procedure 10/31/2024 3:50 PM EST Office Visit Family Medicine [address] [place] [address] [place] [address] [place] [phone] Not at this time Family Medicine Comment on above: Not at this time Start: 10-31-2024 End: 01-30-2025 CBC panel - Blood by Automated count COMPLETE BLOOD COUNT Lab Routine Wellness examination Expected: 10/31/2024, Expires: 01/30/2025 [facility] Comment on above: Expected: 10/31/2024, Expires: Start: 10-31-2024 End: 01-30-2025 Comprehensive metabolic 2000 panel - Serum or Plasma COMPREHENSIVE METABOLIC PANEL Lab Routine Wellness examination Expected: 10/31/2024, Expires: 01/30/2025 [facility] Comment on above: Expected: 10/31/2024, Expires: Start: 10-31-2024 End: 01-30-2025 Lipid 1996 panel - Serum or Plasma LIPID PANEL BASIC Lab Routine Wellness examination Expected: 10/31/2024, Expires: 01/30/2025 [facility] Comment on above: Expected: 10/31/2024, Expires: Start: 10-14-2024 End: 10-14-2024 Patient encounter procedure 10/14/2024 10:00 AM EST Office Visit [facility] [address] [address] Caren Byrnes MD [address] [place] [address] COLPOSCOPY [facility] Comment on above: COLPOSCOPY Start: 09-13-2024 End: 09-13-2024 Patient encounter procedure 09/13/2024 10:00 AM EDT Office Visit Gynecology [address] [place] [id number] SIS/EMB Gynecology Comment on above: SIS/EMB Start: 07-21-2024 COVID-19 Vaccine ( season) COVID-19 Vaccine ( season) [facility] Start: 07-21-2024 Covid-19 Vaccine () Covid-19 Vaccine () [facility] Start: 07-21-2024 Influenza vaccination Influenza Vaccine (#1) [facility] Start: 08-20-2023 HPV TESTING HPV TESTING [facility] Start: 08-20-2023 PAP TESTING PAP TESTING [facility] Start: 08-20-2023 Screening for malignant neoplasm of cervix Cervical Cancer Screening [facility] Start: 07-26-2023 Mammography [facility] Start: 07-26-2023 Screening for malignant neoplasm of breast Mammogram Screening [facility] Start: 07-21-2023 Covid-19 Vaccine ( season) Covid-19 Vaccine () [facility] Start: 07-21-2023 Influenza vaccination Influenza Vaccine (#1) [facility] Start: 07-19-2023 LIPID SCREEN LIPID SCREEN [facility] Start: 12-12-2022 SHINGRIX VACCINE (2 of 2) SHINGRIX VACCINE (2 of 2) [facility] Start: 11-20-2022 DEPRESSION ASSESSMENT DEPRESSION ASSESSMENT [facility] Start: 10-17-2022 End: 12-17-2022 Comprehensive metabolic 2000 panel - Serum or Plasma COMP METABOLIC PANEL Lab Routine Screening for diabetes mellitus (DM) Expected: 10/17/2022, Expires: 12/17/2022 [facility] Work Phone: Comment on above: Expected: 10/17/2022, Expires: Start: 10-17-2022 End: 12-17-2022 Lipid 1996 panel - Serum or Plasma LIPID PANEL BASIC Lab Routine Screening, lipid Expected: 10/17/2022, Expires: 12/17/2022 [facility] Work Phone: Comment on above: Expected: 10/17/2022, Expires: 3 Start: 10-12-2022 Adult depression screening assessment DEPRESSION SCREENING [facility] Start: 08-20-2022 Influenza vaccination Influenza Vaccine (#1) [facility] Start: 07-21-2022 Influenza vaccination INFLUENZA (#1) [facility] Start: 01-21-2022 COVID-19 VACCINE (4 - Booster for Pfizer series) COVID-19 VACCINE (4 - Booster for Pfizer series) [facility] Start: 11-20-2021 DEPRESSION ASSESSMENT DEPRESSION ASSESSMENT [facility] Start: 11-18-2021 COVID-19 VACCINE (4 - Booster for Pfizer series) COVID-19 VACCINE (4 - Booster for Pfizer series) [facility] Start: 07-16-2021 DIABETES SCREEN DIABETES SCREEN [facility] Start: 2021 Measurement of occult blood in single stool specimen FIT [facility] Start: 2021 Pneumococcal Vaccine: 50+ (1 of 1 - PCV) Pneumococcal Vaccine: 50+ (1 of 1 - PCV) [facility] Start: 2021 Screening for malignant neoplasm of breast Mammography [facility] Start: 2021 Screening for malignant neoplasm of colon CRC Screening [facility] Start: 2021 SHINGRIX VACCINE (1 of 2) SHINGRIX VACCINE (1 of 2) [facility] Start: 2021 Varicella-zoster vaccine (product) Shingles (RZV) Vaccine (1 of 2) [facility] Start: 08-20-2020 Influenza vaccination Influenza Vaccine (#1) [facility] Start: 01-25-2018 Mammography MAMMOGRAM [facility] Start: 10-08-2016 Screening for malignant neoplasm of cervix Pap Smear [facility] Start: 01-29-2016 Cholesterol [Mass/Vol] Cholesterol [facility] Start: 01-29-2016 COLOGUARD (FIT-DNA) COLOGUARD (FIT-DNA) [facility] Start: 01-29-2016 Colonoscopy COLONOSCOPY [facility] Start: 01-29-2016 COLORECTAL CANCER SCREENING COLORECTAL CANCER SCREENING [facility] Start: 01-29-[address] COLONOGRAPHY [facility] Start: 01-29-2016 FECAL OCCULT BLOOD FECAL OCCULT BLOOD [facility] Start: 01-29-2016 Lipid panel Cholesterol [facility] Start: 01-29-2016 Screening for malignant neoplasm of colon [facility] Start: 01-29-2016 SIGMOIDOSCOPY SIGMOIDOSCOPY [facility] Start: 2011 Screening for malignant neoplasm of breast Mammography [facility] Start: 1990 Hepatitis A (HAV) Vaccine (optional start 19+ years) Hepatitis A (HAV) Vaccine (optional start 19+ years) [facility] Start: 1990 Hepatitis B vaccination Hepatitis B (HBV) Vaccine (1 of 3 - 19+ 3-dose series) [facility] Start: 1989 Anxiety Screening Anxiety Screening [facility] Start: 1989 Depression Screening Depression Screening [facility] Start: 1989 Hepatitis C antibody, confirmatory test Hepatitis C Antibody [facility] Start: 1989 Hepatitis C screening [facility] Start: 1989 HEPATITIS C SCREENING HEPATITIS C SCREENING [facility] Start: 1989 HIV SCREENING HIV SCREENING [facility] Start: 1989 HIV screening HIV Screening [facility] Start: 1989 Tetanus + diphtheria + acellular pertussis vaccine (product) Tdap Booster [facility] Start: 1983 COVID-19 Vaccine (1) COVID-19 Vaccine (1) [facility] Start: 01-29-1976 COVID-19 Vaccine (#1) COVID-19 Vaccine (#1) [facility] Start: 1971 COVID-19 Vaccine (#1) [facility] Start: 1971 Colonoscopy Colonoscopy [facility] Start: 1971 Screening for malignant neoplasm of colon Colonoscopy [facility] BACTERIAL VAGINOSIS NAAT BACTERIAL VAGINOSIS NAAT Lab Routine PMB (postmenopausal bleeding) Ordered: 09/05/2024 [facility] Comment on above: Ordered: 09/05/2024 WIL/TRICHOMONAS NAAT WIL/TRICHOMONAS NAAT Lab Routine PMB (postmenopausal bleeding) Ordered: 09/05/2024 [facility] Comment on above: Ordered: 09/05/2024 Chlamydia trachomatis+Neisseria gonorrhoeae DNA [Presence] in Unspecified specimen by ALTESHA with probe detection GONORRHEA/CHLAMYDIA NAAT Lab Routine Screen for STD (sexually transmitted disease) Ordered: 09/05/2024 [facility] Comment on above: Ordered: 09/05/2024 COLOGUARD COLOGUARD Lab Ro utine Screening for colon cancer Ordered: 10/31/2024 [facility] Work Phone: Comment on above: Ordered: 10/31/2024 Colposcopy cervix va g eltrd conization cervix OFFICE LEEP Procedures Routine EMY II (cervical intraepithelial neoplasia II) Ordered: 11/07/2024 [facility] Work Phone: Comment on above: Ordered: 11/07/2024 End: 09-06-2025 DBT Breast - bilateral screening CAM SCREENING W NARENDRA Radiology Routine Encounter for screening mammogram for breast cancer 1 Occurrences starting 08/07/2024 until 09/06/2025 [facility] Work Phone: Comment on above: 1 Occurrences starting 08/07/2024 until 09/06/2025 Endometrial bx w/wo endocervix bx w/o dilat spx ENDOMETRIAL BIOPSY Procedures Routine PMB (postmenopausal bleeding) Ordered: 09/05/2024 [facility] Comment on above: Ordered: 09/05/2024 End: 09-28-2024 CAM SCREENING CAM SCREENING Radiology Routine Encounter for screening mammogram for breast cancer 1 Occurrences starting 08/30/2023 until 09/28/2024 [facility] Work Phone: Comment on above: 1 Occurrences starting 08/30/2023 until 09/28/2024 PAP TEST PAP TEST Lab [facility] Screening for cervical cancer Ordered: 09/05/2024 [facility] Comment on above: Ordered: 09/05/2024 PAP TEST PAP TEST Lab [facility] [place] Screening for cervical cancer 06/11/2025 10:[address] [facility] Work Phone: End: 10-17-2023 Screening colonoscopy COLONOSCOPY SCREENING Endoscopy Routine Screening for colon cancer 1 Occurrences starting 10/17/2022 until 10/17/2023 [facility] Work Phone: Comment on above: 1 Occurrences starting 10/17/2022 until 10/17/[address] [facility] Work Phone: SURGICAL PATHOLOGY SURGICAL PATH OLOGY Lab Routine EMY II (cervical intraepithelial neoplasia II) Ordered: 12/09/2024 [facility] Work Phone: Comment on above: Ordered: 12/09/2024 UA DIP,URINE HCG (POC) UA DIP,UR INE HCG (POC) Lab Routine Abdominal discomfort Ordered: 09/05/2024 [facility] Work Phone: Comment on above: Ordered: 09/05/2024 US Uterus and Fallopian tubes W saline IU SONOHYSTEROGRAPHY (SIS) US [facility]I Anc Imaging Routine PMB (postmenopausal bleeding) Ordered: 09/05/2024 [facility] Comment on above: Ordered: 09/05/2024 [facility] Immunizations Immunization Date Immunization Notes Care Provider Fa cility 09-05-2024 influenza, seasonal, injectable, preservative free Main Work Phone: [facility] 09-05-2024 influenza virus vaccine, unspecified formulation Arline Babuscak TAKE OUT WAITER.MAIL DELIVERER Work Phone: [facility] 09-12-2023 influenza virus vaccine, unspecified formulation Carly Granados TAKE OUT WAITER.MAIL DELIVERER Work Phone: [facility] 10-17-2022 zoster vaccine recombinant Sherine Castro MD Work Phone: [facility] 09-13-2022 influenza virus vaccine, unspecified formulation Sherine Castro MD Work Phone: [facility] 09-23-2021 COVID-19 vaccine, ag e 12+ yr (PFIZER-BIONTECH - PURPLE TOP) Suzanne Gómez MD Work Phone: [facility] 08-19-2021 influenza virus vaccine, unspecified formulation Suzanne Gómez MD Work Phone: [facility] 01-05-2021 COVID-19 vaccine, ag e 12+ yr (PFIZER-BIONTECH - PURPLE TOP) Suzanne Gómez MD Work Phone: [facility] 12-08-2020 COVID-19 vaccine, ag e 12+ yr (PFIZER-BIONTECH - PURPLE TOP) Suzanne Gómez MD Work Phone: [facility] 10-08-2019 tetanus and diphther ia toxoids, adsorbed, preservative free, for adult use (5 Lf of tetanus toxoid and 2 Lf of diphtheria toxoid) Suzanne Gómez MD Work Phone: [facility] 08-10-2018 influenza virus vaccine, unspecified formulation Suzanne Gómez MD Work Phone: [facility] 08-22-2017 influenza virus vaccine, unspecified formulation Suzanne Gómez MD Work Phone: [facility] 08-15-2016 influenza virus vaccine, unspecified formulation Suzanne Gómez MD Work Phone: [facility] 08-17-2015 influenza virus vaccine, unspecified formulation Suzanne Gómez MD Work Phone: [facility] 08-15-2014 influenza, seasonal, injectable Suzanne Gómez MD Work Phone: [facility] Work Phone: 11-16-2009 hepatitis B vaccine, adult dosage Suzanne Gómez MD Work Phone: [facility] 09-12-2009 novel [id number], all formulations [facility] 09-12-2009 influenza virus vaccine, unspecified formulation [facility] 08-03-2009 influenza virus vaccine, unspecified formulation [facility] Work Phone: 06-12-2009 hepatitis B vaccine, adult dosage Suzanne Gómez MD Work Phone: [facility] 05-13-2009 hepatitis B vaccine, adult dosage Suzanne Gómez MD Work Phone: [facility] 05-13-2009 tetanus toxoid, reduced diphtheria toxoid, and acellular pertussis vaccine, adsorbed Suzanne Gómez MD Work Phone: [facility] 05-20-2008 measles, mumps and rubella virus vaccine Suzanne Gómez MD Work Phone: [facility] 04-08-2008 measles, mumps and rubella virus vaccine Suzanne Gómez MD Work Phone: [facility] 02-06-2004 tetanus toxoid, adsorbed [facility] Payers Date Payer Category Payer Self-pay [id number] 2021 Private Health Insurance EHP AET NA EHP STAFF/NON STAFF / EHP [facility] [id number] 2021-Present [address] [place] [address] EPO [id number] 2021 Private Health Insurance [id number] 2021 Unknown [id number] 2008 Commercial Indemnity [employer] [facility] S[employer] EMPLOYEE PLAN on file [id number] 2008 Unknown [facility] C/[employer] EMPLOYEE PLAN [facility] [employer] [employer] [id number] 2008-Present [phone] [address] [address] [place] [address] [id number] 2008 Unknown [id number] Social History Date Type Detail Facility Start: 01-26-2015 End: 09-05-2024 Tobacco smoking status [facility] Former smoker [facility] Work Phone: Start: 01-26-2015 Alcohol intake Current non-drinker of alcohol (finding) [facility] Start: 12-26-2006 Tobacco Comment quit 08/25 [facility] Start: 1970 Sex Assigned At Not on file [facility] Start: 01-18-2002 End: 01-18-2007 History of tobacco use Current smoker [facility] Start: 10-12-2021 End: 06-11-2025 Alcohol intake Current drinker of alcohol (finding) [facility] Start: 10-12-2020 History SDOH Alcohol Frequency 4 [facility] Start: 09-28-2020 End: 10-12-2020 History SDOH Alcohol Std Drinks 2 [facility] Start: 09-28-2020 End: 10-12-2020 History SDOH Alcohol Binge 1 [facility] Start: 09-28-2020 History SDOH Social Connections Phone 5 [facility] Start: 09-28-2020 History SDOH Physical Activity DPW 7 [facility] Start: 09-28-2020 History SDOH Physical Activity MPS 10 [facility] Start: 09-28-2020 Education 16 [facility] Start: 05-19-2009 End: 10-17-2022 Tobacco Comment infrequent smoker [facility] Start: 05-22-2022 End: 10-17-2022 Exposure to SARS-CoV-2 (event) Not sure [facility] Start: 01-18-2002 End: 01-18-2007 History of tobacco use Cigarette Smoker [facility] Start: 07-19-2011 End: 09-05-2024 Tobacco use and exposure Smokeless tobacco non-user [facility] Start: 09-28-2020 End: 06-11-2025 History of Social function [facility] Start: 09-28-2020 End: 06-11-2025 Social connection and isolation panel [facility] Do you belong to any clubs or organizations such as sabianism groups, unions, fraternal or athletic groups, or school groups? No [facility] Are you now , , , , never or living with a partner? [facility] How often to you hav e a drink containing alcohol? 2-3 time sa week [facility] How many standard dr inks containing alcohol do you have on a typical day? 3 or 4 [facility] How often do you hav e 6 or more drinks on 1 occasion? Never [facility] How hard is it for y ou to pay for the very basics like food, housing, medical care, and heating Not hard at all [facility] Work Phone: Do you feel stress - tense, restless, nervous, or anxious, or unable to sleep at night because your mind is troubled all the time - these days [OSQ] Not at all [facility] (I/We) worried corine er (my/our) food would run out before (I/we) got money to buy more. Never true [facility] Work Phone: Start: 09-23-2012 Sex Female (finding) [facility] Functional Status Date Assessment Result Facility 02-18-2015 Are you deaf, or do you have serious difficulty hearing No 02/18/2015 12:17 PM EDT Awa Cabrera MA No [facility] 02-18-2015 Are you blind, or do you have serious difficulty seeing, even when wearing glasses No 02/18/2015 12:17 PM EDT Awa Cabrera MA No [facility] 02-18-2015 Do you have serious difficulty walking or climbing stairs No 02/18/2015 12:17 PM EDT Awa Cabrera [facility] 02-18-2015 Do you have difficul ty dressing or bathing No 02/18/2015 12:17 PM EDT Awa Cabrera MA No [facility] 02-18-2015 Because of a physica l, mental, or emotional condition, do you have difficulty doing errands alone such as visiting a physician's office or shopping No 02/18/2015 12:17 PM EDT Awa Cabrera [facility] Mental Status Date Assessment Result Facility 02-18-2015 Because of a physica l, mental, or emotional condition, do you have serious difficulty concentrating, remembering, or making decisions No 02/18/2015 12:17 PM EDT Awa Cabrera [facility] Clinical Notes 08-05-2008 to 09-24-2025 Arline Haines APRN.CNP - 06/11/2025 10:30 AM Henna Saunders APRN.CNP - 04/19/2025 12:03 PM EDTPatient Fely Dean APRN.CNP - 01/10/2025 9:00 AM ESTPatient Instructions Note Date & Type Note Facility 09-24-2025 Note HNO ID: [id number] Author: ARLINE HAINES APRN.REED Service: ? Author Type: Nurse Practitioner Type: Progress Notes Filed: 09/24/2025 09:10 Note Text: [facility] [place] Department of Benign Gynecology [facility] PATIENT NAME: Juan R Moore PCP: Sherine Castro MD DATE: 09/24/2025 Chief Complaint CC: Annual 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 Patient also would like to discuss the following concerns: None She is s/p LEEP. Indication: CIN2. 01/10/2025 A. Uterus, cervix, 10-12:00, biopsy - High-grade squamous intraepithelial lesion (CIN2) B. Uterus, cervix, 4:00, biopsy - Benign squamous epithelium C. Uterus, cervix, multiple, biopsies - Inflamed squamous mucosa, no definite squamous intraepithelial lesion D. Uterus, endocervix, curettage - Benign endocervical tissue LEEP path 01/10/2025: FINAL DIAGNOSIS A. Cervix, LEEP: - Benign transformation zone. B. Endocervix, curettings: - Benign endocervical epithelium. ACV/bs 12/11/2024 Denies vaginal itching, irritation, discharge or odor. Menses: no menses - postmenopausal age 49 shanique BTB: NO Contraception: none Hot flashes: No Night sweats: No Vaginal dryness: No PAP HISTORY: Immunocompromised? CIN2 01/10/2025 Last Pap: 06/17/2025, normal HPV: 06/16/2025, negative History of abnormal pap: Yes 11/2024- LEEP CINII 09/12/2025- ASCUS HPV 16+ 12/10/2008- LGSIL hpv 16 positive per [facility] -12/25/2008- COLPO- A. Endocervical curetting: Minute fragments of endocervical epithelium, no pathological diagnosis. B. Cervical biopsy at 11 and 6 o'clock: Mild dysplasia (EMY I), with evidence of human papilloma virus infection and acute and chronic cervicitis with squamous metaplasia. Sexually active: Yes- with current partner History of STDS: HPV and HSV- last and only break out around Desire STD testing: declines STD testing Last mammogram: 07/26/2022, normal- future order in History of abnormal mammogram: No Last Colonoscopy: Cologard 2023- negative Tafe Lecturer offered: Patient declines. Exercise: 3-4 times a week for 45 minutes. Type: Gym Dietary calcium: YES Vitamin D3: YES Tobacco use? No OB History Gravida3 Para2 Term2 Preterm0 AB1 Living2 SAB1 IAB0 Ectopic0 Multiple0 Live Births2 Etl Architect History LMP: LMP Unknown, Postmenopausal Age at Menarche: 12 Age at First : 29 Age at Menopause: 49 Etl Architect History Comments: Sexual Activity: Yes; Male Contraception: Pill Family history of breast/ovarian/uterine cancer? Yes Ovarian cancer Mother Review of Systems: General: Feels well. Denies fatigue, fever, chills, unintentional weight loss/weight gain. Psych: Feels stable, denies anxiety, depression or mood changes. Stress is tolerable. Abdomen: No abdominal pain, nausea, vomiting, diarrhea, or constipation. No bloating, early satiety, indigestion, or increased flatulence. 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 Family History: Family History Problem Relation Age of Onset Hypertension Mother Ovarian cancer Mother ovarian other (glioblastoma) Mother Diabetes Father Coronary Artery Disease Father Coronary Artery Disease Brother 38 cardiac Diabetes Brother Cervical Cancer Maternal Grandmother Lymphoma Other Breast Cancer No Family History Uterine Cancer No Family History Past Surgical History: PAST SURGICAL HISTORY Procedure Laterality Date CERVIX UTERI CONIZA LP ELCTRO EXCI VAGINOSCOPY 2000, 2004 Social History: SOCIAL HISTORY[1] Allergies: ALLERGIES Allergen Reactions Bees Swelling hives Kiwi Hives, Itching, Other: See Comments Allergies updated: Yes Medications: Current Outpatient Medications Medication Sig COLLAGEN MISC BIOTIN ORAL Take by mouth. cholecalciferol, vitamin D3, (VITAMIN D3 ORAL) Take by mouth. vitamin B complex (B COMPLEX ORAL) Take by mouth. CALCIUM ORAL Take by mouth. ASCORBIC ACID (VITAMIN C ORAL) Take by mouth. MULTIVIT-MINERALS/FERROUS FUM (MULTI VITAMIN ORAL) Take by mouth. predniSONE (DELTASONE) 50 mg Take 1 tablet by mouth once daily. (Patient not taking: Reported on 09/24/2025) cyclobenzaprine (FLEXERIL) 5 mg tablet Take 1-2 tablets by mouth three times a day as needed for muscle spasm. (Patient not taking: Reported on 09/24/2025) No current facility-administered medications for this visit. Medications reviewed in detail and updated PRN. Yes Physical Exam: BP 135/78 Ht 5' 9 (1.753 m) Wt 138 lb 10.7 oz (62.9 kg) LMP (LMP Unknown) BMI 20.48 kg/m? GEN (more content not included)... [facility] 08-21-2025 Note HNO ID: [id number] Author: HELGA MCKNIGHT RT(Mikayla) Service: ? Author Type: Technologist Type: Progress Notes Filed: 08/21/2025 13:21 Note Text: Radiology Service Progress Note PATIENT NAME: Juan R Moore DATE OF SERVICE: August 21, 2025 TIME: 1:21 PM PATIENT IDENTITY VERIFICATION COMPLETED USING TWO (2) IDENTIFIERS: Name and Date of confirmed by patient verbally. FALL SCREENING: Has the patient had 2 falls in the last year or 1 fall with injury or currently using an Ambulatory Assistive Device (Walker, Cane, Wheelchair, Crutches, etc.)? No PATIENT GENDER DATA: Assigned female at . status: Unknown status: N/A PATIENT RELEVANT IMPLANT DATA REVIEWED: Not Applicable PATIENT PRESENTS WITH AN IMPLANTABLE OR ATTACHED RESIDENTIAL COUNSELOR: No RADIOLOGY DEPARTMENT: General X-ray: Exam(s) Completed: Upper Extremity X-Ray(s): Shoulder, AP / TRUE AP / AXILLARY right PERIPHERAL IV DATA: Not applicable SIGNED BY: RT Coco(Mikayla) August 21, 2025 1:21 PM [facility] 08-15-2025 Note HNO ID: [id number] Author: ALE JACKMAN APRN.MAIL DELIVERER Service: ? Author Type: Nurse Practitioner Type: Progress Notes Filed: 08/15/2025 10:31 Note Text: Juan R Moore is a 55 year old female who presents with Patient presents with: Back Pain PCP: Sherine Castro MD Recording using ambient Glazeon software for draft documentation of the visit was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 PATIENT NAME: Juan R Moore PCP: Sherine Castro MD DATE: 01/10/2025 Chief Complaint CC: S/p LEEP 11/2024 History of Present Illness: Juan R is a 54 year old who presents for problem visit for leep follow up . No bleeding, pain or discharge, she has not had intercourse since her procedure She is s/p LEEP. Indication: CIN2. A. Uterus, cervix, 10-12:00, biopsy - High-grade squamous intraepithelial lesion (CIN2) B. Uterus, cervix, 4:00, biopsy - Benign squamous epithelium C. Uterus, cervix, multiple, biopsies - Inflamed squamous mucosa, no definite squamous intraepithelial lesion D. Uterus, endocervix, curettage - Benign endocervical tissue LEEP path: FINAL DIAGNOSIS A. Cervix, LEEP: - Benign transformation zone. B. Endocervix, curettings: - Benign endocervical epithelium. ACV/bs 12/11/2024 Denies vaginal itching, irritation, discharge or odor. Menses: no menses - postmenopausal. Contraception: none Last Pap: 09/12/2024, abnormal, ASCUS HPV: 09/12/2024, positive History of abnormal pap: Yes OB History Gravida4 Para3 Term3 Preterm0 AB1 Living2 SAB1 IAB0 Ectopic0 Multiple0 Live Births2 Review of Systems: General: Feels well. Denies fatigue, fever, chills, unintentional weight loss/weight gain. Psych: Feels stable, denies anxiety, depression or mood changes. Stress is tolerable. Abdomen: No abdominal pain, nausea, vomiting, diarrhea, or constipation. No bloating, early satiety, indigestion, or increased flatulence. 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 Family History: Family History Problem Relation Age of Onset Hypertension Mother Cancer Mother ovarian other (glioblastoma) Mother Diabetes Father Coronary Artery Disease Father Coronary Artery Disease Brother 38 cardiac Diabetes Brother Cervical Cancer Maternal Grandmother Lymphoma Other Past Surgical History: PAST SURGICAL HISTORY Procedure Laterality Date VAGINOSCOPY 2000, 2004 Social History: Social History Tobacco Use Smoking status: Former Current packs/day: 0.00 Types: Cigarettes Start date: 01/18/2002 Quit date: 01/18/2007 Years since quittin.9 Smokeless tobacco: Never Tobacco comments: infrequent smoker Vaping Use Vaping status: Never Used Substance Use Topics Alcohol use: Yes Comment: socially Drug use: Yes Comment: socially Allergies: ALLERGIES Allergen Reactions Bees Swelling hives Kiwi Hives, Itching, Other: See Comments Allergies updated: Yes Medications: Current Outpatient Medications Medication Sig BIOTIN ORAL Take by mouth. cholecalciferol, vitamin D3, (VITAMIN D3 ORAL) Take by mouth. vitamin B complex (B COMPLEX ORAL) Take by mouth. CALCIUM ORAL Take by mouth. ASCORBIC ACID (VITAMIN C ORAL) Take by mouth. MULTIVIT-MINERALS/FERROUS FUM (MULTI VITAMIN ORAL) Take by mouth. No current facility-administered medications for this visit. Medications reviewed in detail and updated PRN: Yes Physical Exam: BP 122/60 Wt 64.6 kg (142 lb 6.7 oz) LMP (LMP Unknown) BMI 21.03 kg/m GENERAL: Well appearing, alert, well-hydrated, well nourished female in no apparent distress PELVIC: external genitalia normal, normal Bartholin's glands, urethra, [place]'s glands, no vulvar lesions, good vaginal support, physiologic discharge present, normal appearing perineal body and perianal region, cervix healing well, bright red granulation tissue at 6 o'clock position BIMANUAL: deferred RECTOVAGINAL: deferred. NEURO: alert and oriented x3 EXTREMITIES: normal Recent labs/Diagnostic studies: I have thoroughly reviewed this patients previous notes, encounters, labs, and results prior to this visit. Assessment and Plan Encounter Diagnosis ICD-10-CM 1. S/P LEEP Z98.890 1) cervix healing well, pelvic rest x1 week 2) repeat pap scheduled May 2025 SIGNATURE: Fely Braun APRN.CNP Appointments for Next 60 Days Date Time Provider Location Dept Phone 01/10/2025 9:00 AM FELY BRAUN - [facility] [phone] Medical Decision Making: Problems: Low: Stable chronic illness Data: Unique source(s) for external note(s) reviewed: 1 Unique test result(s) reviewed: 1 Medical Decision Making Level: 3 - Low documented in this encounter [facility] 01-10-2025 Note HNO ID: [id number] Author: FELY BRAUN APRN.CNP Service: ? Author Type: Nurse Practitioner Type: Progress Notes Filed: 01/10/2025 09:21 Note Text: [facility] [place] Department of Benign Gyne[facility] PATIENT NAME: Juan R Moore PCP: Sherine Castro MD DATE: 01/10/2025 Chief Complaint CC: S/p LEEP 11/2024 History of Present Illness: Juan R is a 54 year old who presents for problem visit for leep follow up . No bleeding, pain or discharge, she has not had intercourse since her procedure She is s/p LEEP. Indication: CIN2. A. Uterus, cervix, 10-12:00, biopsy - High-grade squamous intraepithelial lesion (CIN2) B. Uterus, cervix, 4:00, biopsy - Benign squamous epithelium C. Uterus, cervix, multiple, biopsies - Inflamed squamous mucosa, no definite squamous intraepithelial lesion D. Uterus, endocervix, curettage - Benign endocervical tissue LEEP path: FINAL DIAGNOSIS A. Cervix, LEEP: - Benign transformation zone. B. Endocervix, curettings: - Benign endocervical epithelium. ACV/bs 12/11/2024 Denies vaginal itching, irritation, discharge or odor. Menses: no menses - postmenopausal. Contraception: none Last Pap: 09/12/2024, abnormal, ASCUS HPV: 09/12/2024, positive History of abnormal pap: Yes OB History Gravida4 Para3 Term3 Preterm0 AB1 Living2 SAB1 IAB0 Ectopic0 Multiple0 Live Births2 Review of Systems: General: Feels well. Denies fatigue, fever, chills, unintentional weight loss/weight gain. Psych: Feels stable, denies anxiety, depression or mood changes. Stress is tolerable. Abdomen: No abdominal pain, nausea, vomiting, diarrhea, or constipation. No bloating, early satiety, indigestion, or increased flatulence. 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 Family History: Family History Problem Relation Age of Onset Hypertension Mother Cancer Mother ovarian other (glioblastoma) Mother Diabetes Father Coronary Artery Disease Father Coronary Artery Disease Brother 38 cardiac Diabetes Brother Cervical Cancer Maternal Grandmother Lymphoma Other Past Surgical History: PAST SURGICAL HISTORY Procedure Laterality Date VAGINOSCOPY 2000, 2004 Social History: Social History Tobacco Use Smoking status: Former Current packs/day: 0.00 Types: Cigarettes Start date: 01/18/2002 Quit date: 01/18/2007 Years since quittin.9 Smokeless tobacco: Never Tobacco comments: infrequent smoker Vaping Use Vaping status: Never Used Substance Use Topics Alcohol use: Yes Comment: socially Drug use: Yes Comment: socially Allergies: ALLERGIES Allergen Reactions Bees Swelling hives Kiwi Hives, Itching, Other: See Comments Allergies updated: Yes Medications: Current Outpatient Medications Medication Sig BIOTIN ORAL Take by mouth. cholecalciferol, vitamin D3, (VITAMIN D3 ORAL) Take by mouth. vitamin B complex (B COMPLEX ORAL) Take by mouth. CALCIUM ORAL Take by mouth. ASCORBIC ACID (VITAMIN C ORAL) Take by mouth. MULTIVIT-MINERALS/FERROUS FUM (MULTI VITAMIN ORAL) Take by mouth. No current facility-administered medications for this visit. Medications reviewed in detail and updated PRN: Yes Physical Exam: BP 122/60 Wt 64.6 kg (142 lb 6.7 oz) LMP (LMP Unknown) BMI 21.03 kg/m? GENERAL: Well appearing, alert, well-hydrated, well nourished female in no apparent distress PELVIC: external genitalia normal, normal Bartholin's glands, urethra, [place]'s glands, no vulvar lesions, good vaginal support, physiologic discharge present, normal appearing perineal body and perianal region, cervix healing well, bright red granulation tissue at 6 o'clock position BIMANUAL: deferred RECTOVAGINAL: deferred. NEURO: alert and oriented x3 EXTREMITIES: normal Recent labs/Diagnostic studies: I have thoroughly reviewed this patients previous notes, encounters, labs, and results prior to this visit. Assessment and Plan Encounter Diagnosis ICD-10-CM 1. S/P LEEP Z98.890 1) cervix healing well, pelvic rest x1 week 2) repeat pap scheduled May 2025 SIGNATURE: Fely Braun APRN.MAIL DELIVERER Appointments for Next 60 Days Date Time Provider Location Dept Phone 01/10/2025 9:00 AM FELY BRAUN [facility] [phone] Medical Decision Making: Problems: Low: Stable chronic illness Data: Unique source(s) for external note(s) reviewed: 1 Unique test result(s) reviewed: 1 Medical Decision Making Level: 3 - Low [facility] 12-12-2024 Telephone encounter Note Called pt. Verified name/ Message below given and pt verbalizes understanding. Pt states she is still having some cramping and she feels this is part of the recovery process. Will route chart for scheduling of both appointment. Sara Zafar RN December 12, 2024 3:30 PM [facility] 12-12-2024 Miscellaneous Notes Called pt. Verified name/ Message below given and pt verbalizes understanding. Pt states she is still having some cramping and she feels this is part of the recovery process. Will route chart for scheduling of both appointment. Sara Zafar RN December 12, 2024 3:30 PM Please call patient. She had colposcopy and LEEP conization of cervix All test results were benign, no cancer and looks like we have removed all precancer. If she is having any problems, please let me know. Please route to schedule in office postop visit Donald Piña or Aparna Will need PAP HPV in 6 months, can see Arline Haines Thanks documented in this encounter [facility] 12-12-2024 Telephone encounter Note Please call patient. She had colposcopy and LEEP conization of cervix All test results were benign, no cancer and looks like we have removed all precancer. If she is having any problems, please let me know. Please route to schedule in office postop visit Donald Piña or Aparna Will need PAP HPV in 6 months, can see Arline Hardy [facility] 12-09-2024 Instructions Caren Byrnes MD - 12/09/2024 1:45 PM EST YOUR RECOVERY It may take a few weeks for your cervix to heal. While your cervix heals, you may have: Vaginal bleeding (less than a normal menstrual period) Mild cramping A brown-black vaginal discharge (similar to coffee grounds) which is a result of the paste used to help stop bleeding from the procedure Do NOT put anything in the vagina for 4 weeks after your LEEP (Loop Electrosurgical Excision Procedure). This includes: tampons douches and refraining from having sexual intercourse If you have any discomfort, you may take an over the counter pain medication (motrin, advil, ibuprofen, tylenol, etc). If this does not relieve your discomfort, contact the office. It is okay to wear a sanitary pad until the discharge and spotting stops. RISKS Although problems seldom occur with LEEP, there can be some complications. You may feel faint during and shortly after the procedure as well as have some bleeding and vaginal discharge after the procedure. There is also a risk of infection after the procedure. These complications are rare and can be easily treated. You should contact you doctor is you have any of the following: Heavy bleeding (more than your normal period) Bleeding with clots Severe abdominal pain Fever (more than 100.4F) Foul smelling vaginal discharge RESULTS We will have the results of your biopsy in 1-2 weeks. If you do not hear the results of your LEEP after 2 weeks, please contact your physician's office. STAYING HEALTHY After the procedure, you will need to see your doctor for follow up visits during the year. At these visits your doctor will check the health of your cervix with a pap smear. After three normal pap smears, your doctor will allow you to return to having exams once a year. If you have another abnormal pap smear, you may need closer follow up for longer or you may need additional treatment. By making a few lifestyle changes after the procedure, you can help protect the health of your cervix: Have regular pelvic exams and pap smears as ordered by your doctor. Stop smoking as smoking increases your risk of developing a cancer of the cervix If you have more than one sexual partner, limit your number of partners and use condoms to reduce your risks of STDs. If you have any additional questions or concerns, please do not hesitate to contact the office. documented in this encounter [facility] 12-09-2024 Note HNO ID: [id number] Author: CAREN BYRNES MD Service: ? Author Type: Physician Type: Progress Notes Filed: 12/09/2024 14:27 Note Text: Juan R Moore presents for LEEP. Indication: CIN2. A. Uterus, cervix, 10-12:00, biopsy - High-grade squamous intraepithelial lesion (CIN2) B. Uterus, cervix, 4:00, biopsy - Benign squamous epithelium C. Uterus, cervix, multiple, biopsies - Inflamed squamous mucosa, no definite squamous intraepithelial lesion D. Uterus, endocervix, curettage - Benign endocervical tissue No LMP recorded (lmp unknown). Patient is postmenopausal. VITALS: BP 142/67 Ht 5' 9 (1.75m) Wt 141 lb 8.6 oz (64.2kg) BMI 20.89 kg/(m2). No LMP recorded (lmp unknown). Patient is postmenopausal. test: n/a ACTIVE PROBLEM LIST Ascus With Positive High Risk Hpv Cervical - 10/14/2024 Comment: 08/2024 PAP ASCUS HPV POS 16 09/2024 Colposcopy A. Uterus, cervix, 10-12:00, biopsy - High-grade squamous intraepithelial lesion (CIN2) B. Uterus, cervix, 4:00, biopsy - Benign squamous epithelium C. Uterus, cervix, multiple, biopsies - Inflamed squamous mucosa, no definite squamous intraepithelial lesion D. Uterus, endocervix, curettage - Benign endocervical tissue Dental Caries On Pit and Fissure Surface Penetrating into Dentin - 12/07/2016 Current Outpatient Medications on File Prior to Visit Medication Sig BIOTIN ORAL Take by mouth. cholecalciferol, vitamin D3, (VITAMIN D3 ORAL) Take by mouth. vitamin B complex (B COMPLEX ORAL) Take by mouth. CALCIUM ORAL Take by mouth. ASCORBIC ACID (VITAMIN C ORAL) Take by mouth. MULTIVIT-MINERALS/FERROUS FUM (MULTI VITAMIN ORAL) Take by mouth. No current facility-administered medications on file prior to visit. Allergies: Bees Swelling Comment:hives Kiwi Hives, Itching, Other: See Comments UNIVERSAL PROTOCOL / SAFETY CHECKLIST Procedure to be Performed: colposcopy, LEEP loop electrosurgical excision procedure conization of cervix Sign In: A Moment of CARE was completed. Personnel directly involved with the procedure wore the appropriate PPE (Personal Protective Equipment). No special equipment needed. Patient/Surrogate Stated/Verified: PATIENT VERIFIED(optional for EMERGENT procedures): Patient name, Date of , Relevant allergies, and The intended procedure Time Out Communication: Intended patient and procedure match the source documents. Consent documented and matches the intended procedure. Relevant labs, photos, and/or imaging studies have been reviewed. No correct side/site applicable for marking and visibility. No medications required for procedure. No fire risk assessment and interventions applicable. No implant(s) inserted. Sign Out: SIGN OUT (optional for EMERGENT procedures): All specimen containers correctly labeled. All instruments, equipment, possible retained foreign bodies accounted for. Post-procedure follow-up management communicated and Plan of Care Visit completed when applicable. PROCEDURE NOTE: Colposcopy used to visualize cervix. Acetic acid and lugols solution applied to identify the dysplastic area. Inspection indicates that it is reasonable to proceed with office LEEP. Patient and personnel in the room all donned N95 masks. Smoke evacuation was operating normally during the procedure. Cervix anesthetized with 10 mL lignospan (2% lidocaine and epinephrine) 1:100,000 (1.8mL/vial) using a 27gauge [place] needle. LEEP conization performed using 1 X 1 loop(s) with wide area excised between 9-12 due to prior EMY II biopsy site. ECC done. Hemostasis was achieved with Monsel's solution, pressure, and electrocautery. Procedure Summary: Patient tolerated procedure well. ASSESSMENT: Encounter Diagnosis ICD-10-CM 1. 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 PLAN: Specimens labeled and sent to Pathology. Will notify patient of results in 1-2 weeks. Post-procedure instructions reviewed and written material given to the patient. Caren Byrnes MD [facility] 12-09-2024 History of Presen t illness Narrative Juan R Moore presents for LEEP. Indication: CIN2. A. Uterus, cervix, 10-12:00, biopsy - High-grade squamous intraepithelial lesion (CIN2) B. Uterus, cervix, 4:00, biopsy - Benign squamous epithelium C. Uterus, cervix, multiple, biopsies - Inflamed squamous mucosa, no definite squamous intraepithelial lesion D. Uterus, endocervix, curettage - Benign endocervical tissue No LMP recorded (lmp unknown). Patient is postmenopausal. VITALS: BP 142/67 Ht 5' 9 (1.75m) Wt 141 lb 8.6 oz (64.2kg) BMI 20.89 kg/(m^2). No LMP recorded (lmp unknown). Patient is postmenopausal. test: n/a ACTIVE PROBLEM LIST Ascus With Positive High Risk Hpv Cervical - 10/14/2024 Comment: 08/2024 PAP ASCUS HPV POS 16 09/2024 Colposcopy A. Uterus, cervix, 10-12:00, biopsy - High-grade squamous intraepithelial lesion (CIN2) B. Uterus, cervix, 4:00, biopsy - Benign squamous epithelium C. Uterus, cervix, multiple, biopsies - Inflamed squamous mucosa, no definite squamous intraepithelial lesion D. Uterus, endocervix, curettage - Benign endocervical tissue Dental Caries On Pit and Fissure Surface Penetrating into Dentin - 12/07/2016 Current Outpatient Medications on File Prior to Visit Medication Sig BIOTIN ORAL Take by mouth. cholecalciferol, vitamin D3, (VITAMIN D3 ORAL) Take by mouth. vitamin B complex (B COMPLEX ORAL) Take by mouth. CALCIUM ORAL Take by mouth. ASCORBIC ACID (VITAMIN C ORAL) Take by mouth. MULTIVIT-MINERALS/FERROUS FUM (MULTI VITAMIN ORAL) Take by mouth. No current facility-administered medications on file prior to visit. Allergies: Bees Swelling Comment:hives Kiwi Hives, Itching, Other: See Comments UNIVERSAL PROTOCOL / SAFETY CHECKLIST Procedure to be Performed: colposcopy, LEEP loop electrosurgical excision procedure conization of cervix Sign In: A Moment of CARE was completed. Personnel directly involved with the procedure wore the appropriate PPE (Personal Protective Equipment). No special equipment needed. Patient/Surrogate Stated/Verified: PATIENT VERIFIED(optional for EMERGENT procedures): Patient name, Date of , Relevant allergies, and The intended procedure Time Out Communication: Intended patient and procedure match the source documents. Consent documented and matches the intended procedure. Relevant labs, photos, and/or imaging studies have been reviewed. No correct side/site applicable for marking and visibility. No medications required for procedure. No fire risk assessment and interventions applicable. No implant(s) inserted. Sign Out: SIGN OUT (optional for EMERGENT procedures): All specimen containers correctly labeled. All instruments, equipment, possible retained foreign bodies accounted for. Post-procedure follow-up management communicated and Plan of Care Visit completed when applicable. PROCEDURE NOTE: Colposcopy used to visualize cervix. Acetic acid and lugols solution applied to identify the dysplastic area. Inspection indicates that it is reasonable to proceed with office LEEP. Patient and personnel in the room all donned N95 masks. Smoke evacuation was operating normally during the procedure. Cervix anesthetized with 10 mL lignospan (2% lidocaine and epinephrine) 1:100,000 (1.8mL/vial) using a 27gauge [place] needle. LEEP conization performed using 1 X 1 loop(s) with wide area excised between 9-12 due to prior EMY II biopsy site. ECC done. Hemostasis was achieved with Monsel's solution, pressure, and electrocautery. Procedure Summary: Patient tolerated procedure well. ASSESSMENT: Encounter Diagnosis ICD-10-CM 1. 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 PLAN: Specimens labeled and sent to Pathology. Will notify patient of results in 1-2 weeks. Post-procedure instructions reviewed and written material given to the patient. Caren Byrnes MD documented in this encounter [facility] 11-08-2024 Telephone encounter Note Done Fernie Talbot [facility] Work Phone: 11-08-2024 Miscellaneous Notes Done Fernie Talbot patient needs this appt scheduled [place] MondayDecember 09 10am office leep she is aware already documented in this encounter [facility] 11-07-2024 Telephone encounter Note patient needs this appt scheduled [place] MondayDecember 09 10am office leep she is aware already [facility] 11-07-2024 History of Presen t illness Narrative I have communicated my name and active licensure. The patient's identity and physical location were verified at the time of this visit. Either the patient or their legal retention representative has been informed of the risks and benefits of -- and alternatives to -- treatment through a remote evaluation and consents to proceed with the evaluation remotely. Juan R Moore is a 54 year old female with No LMP recorded (lmp unknown). Patient is postmenopausal. Chief Complaint: follow up on abnormal pap pap was ASCUS HPV POS 16 - EMY II on colposcopy discussed options, ART EMY, LEEP in office, LEEP in OR' Risks, benefits, alternatives and personnel discussed with patient who consents to proceed. 10 am MondayDecember 09 - office LEEP - sent message to stenographer secretary already ACTIVE PROBLEM LIST Ascus With Positive High Risk Hpv Cervical - 10/14/2024 Comment: 08/2024 PAP ASCUS HPV POS 16 09/2024 Colposcopy A. Uterus, cervix, 10-12:00, biopsy - High-grade squamous intraepithelial lesion (CIN2) B. Uterus, cervix, 4:00, biopsy - Benign squamous epithelium C. Uterus, cervix, multiple, biopsies - Inflamed squamous mucosa, no definite squamous intraepithelial lesion D. Uterus, endocervix, curettage - Benign endocervical tissue Dental Caries On Pit and Fissure Surface Penetrating into Dentin - 12/07/2016 Based on her recent results, I recommend LEEP REVIEW OF SYSTEMS GENERAL: No weight loss, malaise or fevers., SEE HPI HEENT: Negative for frequent or significant headaches, No changes in hearing or vision, no nose bleeds or other nasal problems RESPIRATORY: Negative for cough, wheezing or shortness of breath. CARDIOVASCULAR: Negative for chest pain, leg swelling or palpitations. GI: Negative for abdominal discomfort, blood in stools or black stools or change in bowel habits : No history of dysuria, frequency or incontinence RIBBON TIER: Negative for abnormal vaginal bleeding, abnormal vaginal discharge. All other reviewed and negative other than HPI. 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 PAST SURGICAL HISTORY Procedure Laterality Date VAGINOSCOPY 2000, 2004 FAMILY HISTORY Problem Relation Age of Onset Hypertension Mother Cancer Mother ovarian other (glioblastoma) Mother Diabetes Father Coronary Artery Disease Father Coronary Artery Disease Brother 38 cardiac Diabetes Brother Cervical Cancer Maternal Grandmother Lymphoma Other Social History Tobacco Use Smoking status: Former Current packs/day: 0.00 Types: Cigarettes Start date: 01/18/2002 Quit date: 01/18/2007 Years since quittin.8 Smokeless tobacco: Never Tobacco comments: infrequent smoker Vaping Use Vaping status: Never Used Substance Use Topics Alcohol use: Yes Comment: socially Drug use: Yes Comment: socially ALLERGIES Allergen Reactions Bees Swelling hives Kiwi Hives, Itching, Other: See Comments Allergies were reviewed with the patient today and are up to date? y Y/N Current Outpatient Medications Medication Sig BIOTIN ORAL Take by mouth. cholecalciferol, vitamin D3, (VITAMIN D3 ORAL) Take by mouth. vitamin B complex (B COMPLEX ORAL) Take by mouth. CALCIUM ORAL Take by mouth. ASCORBIC ACID (VITAMIN C ORAL) Take by mouth. MULTIVIT-MINERALS/FERROUS FUM (MULTI VITAMIN ORAL) Take by mouth. No current facility-administered medications for this visit. Medications were reviewed with the patient today and are up to date? y Y/N VIDEO PHYSICAL EXAMINATION: VS: not taken General Appearance: 54 year old female in no apparent distress; not ill or toxic appearing HEENT normal facies, no self-reported vision or hearing impairment, normal speech CHEST normal speech pace and normal respiratory effort Encounter Diagnosis ICD-10-CM 1. 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 OFFICE LEEP I counseled patient about the procedure, risks, benefits, possible outcomes I counseled her about the preop, intraop and postop expectations for the surgery Future Appointments Date Time Provider Department Center 12/09/2024 1:30 PM Caren Byrnes MD [facility] I spent a total of 30 minutes on the date of the service which included preparing to see the patient, [id number] patient care, completing clinical documentation, obtaining and/or reviewing separately obtained history, counseling and educating the patient/family/caregiver, and communicating results to the patient/family/caregiver. Caren Byrnes MD documented in this encounter [facility] 11-07-2024 Note HNO ID: [id number] Author: CAREN BYRNES MD Service: ? Author Type: Physician Type: Progress Notes Filed: 11/11/2024 12:03 Note Text: I have communicated my name and active licensure. The patient's identity and physical location were verified at the time of this visit. Either the patient or their legal retention representative has been informed of the risks and benefits of -- and alternatives to -- treatment through a remote evaluation and consents to proceed with the evaluation remotely. Juan R Moore is a 54 year old female with No LMP recorded (lmp unknown). Patient is postmenopausal. Chief Complaint: follow up on abnormal pap pap was ASCUS HPV POS 16 - EMY II on colposcopy discussed options, ART EMY, LEEP in office, LEEP in OR' Risks, benefits, alternatives and personnel discussed with patient who consents to proceed. 10 am MondayDecember 09 - office LEEP - sent message to stenographer secretary already ACTIVE PROBLEM LIST Ascus With Positive High Risk Hpv Cervical - 10/14/2024 Comment: 08/2024 PAP ASCUS HPV POS 16 09/2024 Colposcopy A. Uterus, cervix, 10-12:00, biopsy - High-grade squamous intraepithelial lesion (CIN2) B. Uterus, cervix, 4:00, biopsy - Benign squamous epithelium C. Uterus, cervix, multiple, biopsies - Inflamed squamous mucosa, no definite squamous intraepithelial lesion D. Uterus, endocervix, curettage - Benign endocervical tissue Dental Caries On Pit and Fissure Surface Penetrating into Dentin - 12/07/2016 Based on her recent results, I recommend LEEP REVIEW OF SYSTEMS GENERAL: No weight loss, malaise or fevers., SEE HPI HEENT: Negative for frequent or significant headaches, No changes in hearing or vision, no nose bleeds or other nasal problems RESPIRATORY: Negative for cough, wheezing or shortness of breath. CARDIOVASCULAR: Negative for chest pain, leg swelling or palpitations. GI: Negative for abdominal discomfort, blood in stools or black stools or change in bowel habits : No history of dysuria, frequency or incontinence RIBBON TIER: Negative for abnormal vaginal bleeding, abnormal vaginal discharge. All other reviewed and negative other than HPI. 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 PAST SURGICAL HISTORY Procedure Laterality Date VAGINOSCOPY 2000, 2004 FAMILY HISTORY Problem Relation Age of Onset Hypertension Mother Cancer Mother ovarian other (glioblastoma) Mother Diabetes Father Coronary Artery Disease Father Coronary Artery Disease Brother 38 cardiac Diabetes Brother Cervical Cancer Maternal Grandmother Lymphoma Other Social History Tobacco Use Smoking status: Former Current packs/day: 0.00 Types: Cigarettes Start date: 01/18/2002 Quit date: 01/18/2007 Years since quittin.8 Smokeless tobacco: Never Tobacco comments: infrequent smoker Vaping Use Vaping status: Never Used Substance Use Topics Alcohol use: Yes Comment: socially Drug use: Yes Comment: socially ALLERGIES Allergen Reactions Bees Swelling hives Kiwi Hives, Itching, Other: See Comments Allergies were reviewed with the patient today and are up to date? y Y/N Current Outpatient Medications Medication Sig BIOTIN ORAL Take by mouth. cholecalciferol, vitamin D3, (VITAMIN D3 ORAL) Take by mouth. vitamin B complex (B COMPLEX ORAL) Take by mouth. CALCIUM ORAL Take by mouth. ASCORBIC ACID (VITAMIN C ORAL) Take by mouth. MULTIVIT-MINERALS/FERROUS FUM (MULTI VITAMIN ORAL) Take by mouth. No current facility-administered medications for this visit. Medications were reviewed with the patient today and are up to date? y Y/N VIDEO PHYSICAL EXAMINATION: VS: not taken General Appearance: 54 year old female in no apparent distress; not ill or toxic appearing HEENT normal facies, no self-reported vision or hearing impairment, normal speech CHEST normal speech pace and normal respiratory effort Encounter Diagnosis ICD-10-CM 1. 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 OFFICE LEEP I counseled patient about the procedure, risks, benefits, possible outcomes I counseled her about the preop, intraop and postop expectations for the surgery Future Appointments Date Time Provider Department Center 12/09/2024 1:30 PM Caren Byrnes MD [facility] I spent a total of 30 minutes on the date of the service which included preparing to see the patient, [id number] patient care, completing clinical documentation, obtaining and/or reviewing separately obtained history, counseling and educating the patient/family/caregiver, and communicating results to the patient/family/caregiver. Caren Byrnes MD [facility] 10-31-2024 History of Presen t illness Narrative Juan R Moore is a 54 year old female who presents today for a Physical exam. 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 Byrnes Follow up colpo to determine next steps Health Maintenance: PAP: Her last Pap smear was 09/12- ascus + HPV. Colposcopy showing high grade lesion, seeing marine cargo specialist to review treatment options 11/07 MAMMOGRAM: Her last mammogram was 08/11. DUE. Colonoscopy: DUE Review of Systems: The remainder of the review of systems is negative. Current Medications and allergies reviewed. ACTIVE PROBLEM LIST Dental Caries On Pit and Fissure Surface Penetrating into Dentin Ascus With Positive High Risk Hpv Cervical PHYSICAL EXAMINATION: BP 138/85 (BP Site: Right Arm, BP Position: Sitting, BP Cuff Size: Regular Adult) Pulse 71 Wt 61.9 kg (136 lb 7.4 oz) LMP (LMP Unknown) BMI 20.15 kg/m General: healthy, alert, cooperative, pleasant, in no acute distress HEENT: Normocephalic, Eyes: conjunctiva/corneas normal, EOMI, Right TM: clear with good landmarks, nl light reflex Left TM: clear with good landmarks, nl light reflex Nares: clear, OP: moist without lesions, teeth in good repair Neck: Supple, no lymphadenopathy, no thyroidmegaly CV: regular rate and rhythm, without murmur Lungs: clear to auscultation, without rales or wheeze, good air exchange Back: straight and symmetric Ext: no edema in LE bilaterally, good distal pulses Skin: Clear without rash ASSESSMENT/PLAN: 1. Wellness examination - ICD9: V70.0, ICD10: Z00.00 (primary diagnosis) - Counseled on healthy diet and regular exercise - Colorectal cancer screening - ordered Cologuard - Breast cancer screening - ordered mammogram - Follow up for annual exam in one year - COMPREHENSIVE METABOLIC PANEL - COMPLETE BLOOD COUNT - LIPID PANEL BASIC 2. Screening for colon cancer - ICD9: V76.51, ICD10: Z12.11 - COLOGUARD Sherine Castro MD documented in this encounter [facility] 10-31-2024 Note HNO ID: [id number] Author: SHERINE CASTRO MD Service: ? Author Type: Physician Type: Progress Notes Filed: 11/07/2024 12:43 Note Text: Juan R Moore is a 54 year old female who presents today for a Physical exam. 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 Byrnes Follow up colpo to determine next steps Health Maintenance: PAP: Her last Pap smear was 09/12- ascus + HPV. Colposcopy showing high grade lesion, seeing marine cargo specialist to review treatment options 11/07 MAMMOGRAM: Her last mammogram was 08/11. DUE. Colonoscopy: DUE Review of Systems: The remainder of the review of systems is negative. Current Medications and allergies reviewed. ACTIVE PROBLEM LIST Dental Caries On Pit and Fissure Surface Penetrating into Dentin Ascus With Positive High Risk Hpv Cervical PHYSICAL EXAMINATION: BP 138/85 (BP Site: Right Arm, BP Position: Sitting, BP Cuff Size: Regular Adult) Pulse 71 Wt 61.9 kg (136 lb 7.4 oz) LMP (LMP Unknown) BMI 20.15 kg/m? General: healthy, alert, cooperative, pleasant, in no acute distress HEENT: Normocephalic, Eyes: conjunctiva/corneas normal, EOMI, Right TM: clear with good landmarks, nl light reflex Left TM: clear with good landmarks, nl light reflex Nares: clear, OP: moist without lesions, teeth in good repair Neck: Supple, no lymphadenopathy, no thyroidmegaly CV: regular rate and rhythm, without murmur Lungs: clear to auscultation, without rales or wheeze, good air exchange Back: straight and symmetric Ext: no edema in LE bilaterally, good distal pulses Skin: Clear without rash ASSESSMENT/PLAN: 1. Wellness examination - ICD9: V70.0, ICD10: Z00.00 (primary diagnosis) - Counseled on healthy diet and regular exercise - Colorectal cancer screening - ordered Cologuard - Breast cancer screening - ordered mammogram - Follow up for annual exam in one year - COMPREHENSIVE METABOLIC PANEL - COMPLETE BLOOD COUNT - LIPID PANEL BASIC 2. Screening for colon cancer - ICD9: V76.51, ICD10: Z12.11 - COLOGUARD Sherine Castro MD [facility] 10-21-2024 Telephone encounter Note SHAISTA: 10/14/24 ASSESSMENT: HPV effect and mild dysplasia Encounter Diagnosis ICD-10-CM 1. ASCUS with positive high risk HPV cervical R87.610 R87.810 2. Human papillomavirus (HPV) type 16 DNA detected in cervical specimen R87.810 SURGICAL PATHOLOGY PLAN: Specimens labeled and sent to Pathology. Will notify patient of results in 1-2 weeks. Post-procedure instructions reviewed and written material given to the patient. Requested Prescriptions No prescriptions requested or ordered in this encounter Future Appointments Date Time Provider Department Center 10/31/2024 3:50 PM Sherine Castro MD [facility] Caren Byrnes MD [facility]: 11/07/24 Identified by name and . Spoke to patient. Informed her of Dr. Byrnes's message below: Colposcopy shows a high grade lesion Not to worry, this is curable to prevent cancer There are a few options to manage Scheduled her for VV on Nov 07 at 4:15 pm to discuss options, route to reschedule if this does not work for her -Patient states an understanding of instructions. Accepted VV with Dr. Byrnes 11/07/24. Laura Ashton RN [facility] 10-21-2024 Miscellaneous Notes SHAISTA: 10/14/24 ASSESSMENT: HPV effect and mild dysplasia Encounter Diagnosis ICD-10-CM 1. ASCUS with positive high risk HPV cervical R87.610 R87.810 2. Human papillomavirus (HPV) type 16 DNA detected in cervical specimen R87.810 SURGICAL PATHOLOGY PLAN: Specimens labeled and sent to Pathology. Will notify patient of results in 1-2 weeks. Post-procedure instructions reviewed and written material given to the patient. Requested Prescriptions No prescriptions requested or ordered in this encounter Future Appointments Date Time Provider Department [place] 10/31/2024 3:50 PM Sherine Castro MD [facility] Caren Byrnes MD [facility]: 11/07/24 Identified by name and . Spoke to patient. Informed her of Dr. Byrnes's message below: Colposcopy shows a high grade lesion Not to worry, this is curable to prevent cancer There are a few options to manage Scheduled her for VV on Nov 07 at 4:15 pm to discuss options, route to reschedule if this does not work for her -Patient states an understanding of instructions. Accepted VV with Dr. Byrnes 11/07/24. Laura Ashton RN Please call patient. Colposcopy shows a high grade lesion Not to worry, this is curable to prevent cancer There are a few options to manage Scheduled her for VV on Nov 07 at 4:15 pm to discuss options, route to reschedule if this does not work for her 10/31/2024 in [facility] with SHERINE CASTRO - Not at this time 11/07/2024 in [facility] with CAREN BYRNES - follow up EMY II documented in this encounter [facility] 10-21-2024 Telephone encounter Note Please call patient. Colposcopy shows a high grade lesion Not to worry, this is curable to prevent cancer There are a few options to manage Scheduled her for VV on Nov 07 at 4:15 pm to discuss options, route to reschedule if this does not work for her 10/31/2024 in [facility] with SHERINE CASTRO - Not at this time 11/07/2024 in [facility] with CAREN BYRNES - follow up EMY II [facility] 10-19-2024 Instructions Katie Santana PA-C - 10/19/2024 3:05 PM EST Images from the original note were not included. Adult Sinusitis Patient Education What is Sinusitis? Sinusitis [uwhz-ylq-kkxd-tis] is inflammation of the sinuses or swelling of the lining of the sinus cavity or nose. During an infection the sinuses become blocked with fluid causing swelling of the lining of the sinuses. Symptoms: (viral and bacterial infections) Stuffy nose Runny nose Postnasal drip Fever Toothache Headache Tiredness Cough Sore throat Face and head pressure and or pain Common causes: 98% of sinus infections are viral caused by viruses. Risk Factors of Sinusitis Include: Allergies, air pollution, indoor humidity and outdoor temperature changes, andstructural changes in the nose may contribute to sinus pain, pressure and congestion. When to get help? Temperature greater than 100.4 F Symptoms lasting more than 10 days or worsening symptoms greater than 7-10 days. If you do not improve or worsen after a course of antibiotics, you should be re-examined. Diagnosis and Treatment: Your healthcare provider will ask a number of questions about your symptoms and how long they have occurred. If symptoms of sinusitis persist greater than 10 days, it is possible you have a bacterial sinus infection and an antibiotic is prescribed. If it is viral, antibiotics will not help. You may be instructed to take docy-xzi-oxfzbot medications for symptoms. including fever reducers acetaminophen or ibuprofen, nasal saline spray, cough and cold preparations and decongestants as prescribed by the physician, nurse practitioner or physician assistant store manager. Self-Care and Prevention: Rest Fluids for hydration Good hand washing Humidifier Avoid smoking and exposure to second hand smoke Avoid sick contacts documented in this encounter [facility] 10-19-2024 Note HNO ID: [id number] Author: KATIE SANTANA PA-C Service: ? Author Type: Physician Hoister Type: Progress Notes Filed: 10/19/2024 15:07 Note Text: BP 132/69 Pulse (!) 53 Temp 36.7 ?C (98 ?F) (Temporal) Resp 16 LMP (LMP Unknown) SpO2 99% HISTORY OF PRESENT ILLNESS CC: Juan R is a 54 year old female who presents to the office today for evaluation of her Sinus Infection (Entered by patient. Her eyes and sinuses hurt along with pressure in her ears for 2 weeks. Has been using mucinex and a nasal spray. ) Onset: - Location - respiratory Duration -over the past 2 weeks Course - worsening, not improving Aggravated by -exertion, bending Alleviated by -none Treatment to date - OTC medications Risk Factors / Considerations - no known exposure Recent travel - none Pain scale - PAST HISTORIES FAMILY HISTORY Problem Relation Age of Onset Hypertension Mother Cancer Mother ovarian Diabetes Father Coronary Artery Disease Father Coronary Artery Disease Brother 38 cardiac Diabetes Brother Cervical Cancer Maternal Grandmother Social History Tobacco Use Smoking status: Former Current packs/day: 0.00 Types: Cigarettes Start date: 01/18/2002 Quit date: 01/18/2007 Years since quittin.7 Smokeless tobacco: Never Tobacco comments: infrequent smoker Vaping Use Vaping status: Never Used Substance Use Topics Alcohol use: Yes Comment: socially Drug use: Yes Comment: socially REVIEW OF SYSTEMS Constitutional - Negative, unless otherwise indicated in HPI Eyes - Negative, unless otherwise indicated in HPI ENT - Negative, unless otherwise indicated in HPI Cardiovascular - Negative, unless otherwise indicated in HPI Respiratory - Negative, unless otherwise indicated in HPI Gastrointestinal - Negative, unless otherwise indicated in HPI Genitourinary - Negative, unless otherwise indicated in HPI Musculoskeletal - Negative, unless otherwise indicated in HPI Integumentary - Negative, unless otherwise indicated in HPI Neurologic - Negative, unless otherwise indicated in HPI Psychiatric / Behavioral - Negative, unless otherwise indicated in HPI Endocrine - Negative, unless otherwise indicated in HPI Hematological / lymphatic - Negative, unless otherwise indicated in HPI Allergic / Immunologic - Negative, unless otherwise indicated in HPI PHYSICAL EXAM GENERAL - Patient is oriented to person, place, and time and well-developed, well-nourished, and in no distress. HEAD - Normocephalic and atraumatic. Tender to percussion over frontal maxillary sinus tenderness RIGHT EAR - External ear normal. Canal patent and non erythremic, TM intact, Middle ear space normal LEFT EAR - External ear normal Canal patent and non erythremic, TM intact, Middle ear space normal NOSE - Nose normal. MOUTH/THROAT - No erythema, No exudate, No tonsillar hypertrophy RIGHT EYE - Conjunctivae is normal. Sclera is non icteric LEFT EYE - Conjunctivae is normal. Sclera is non icteric NECK - Normal range of motion. Neck supple. No cervical lymph CARDIOVASCULAR - Normal rate, regular rhythm and normal heart sounds. PULMONARY - Effort normal and breath sounds normal. MUSCULOSKELETAL - Normal range of motion. NEUROLOGICAL - Patient is alert and oriented to person, place, and time. Gait normal. SKIN - Warm and dry. No rash or adventitious lesions noted PSYCH - Mood, memory, affect and judgment normal. IMPRESSION Sinusitis PLAN Doxycycline 100 mg twice daily for 7 days Continue Mucinex Tylenol or Motrin as needed Home going recommendations for symptoms were provided during counseling and on after visit summary All patient's questions were answered at this visit. Patient indicates understanding of discharge and medication instructions prior to discharge. Patient advised to return to contact their primary care physician if symptoms persist. Patient advised if symptoms suddenly worsen to call 911 or report to the emergency room. Patient discharged in stable condition. This note was dictated using [employer] speech recognition software and may contain some errors that were a result of the program not accurately transcribing what was dictated. [facility] 10-19-2024 History of Presen t illness Narrative BP 132/69 Pulse (!) 53 Temp 36.7 C (98 F) (Temporal) Resp 16 LMP (LMP Unknown) SpO2 99% HISTORY OF PRESENT ILLNESS CC: Juan R is a 54 year old female who presents to the office today for evaluation of her Sinus Infection (Entered by patient. Her eyes and sinuses hurt along with pressure in her ears for 2 weeks. Has been using mucinex and a nasal spray. ) Onset: - Location - respiratory Duration -over the past 2 weeks Course - worsening, not improving Aggravated by -exertion, bending Alleviated by -none Treatment to date - OTC medications Risk Factors / Considerations - no known exposure Recent travel - none Pain scale - PAST HISTORIES FAMILY HISTORY Problem Relation Age of Onset Hypertension Mother Cancer Mother ovarian Diabetes Father Coronary Artery Disease Father Coronary Artery Disease Brother 38 cardiac Diabetes Brother Cervical Cancer Maternal Grandmother Social History Tobacco Use Smoking status: Former Current packs/day: 0.00 Types: Cigarettes Start date: 01/18/2002 Quit date: 01/18/2007 Years since quittin.7 Smokeless tobacco: Never Tobacco comments: infrequent smoker Vaping Use Vaping status: Never Used Substance Use Topics Alcohol use: Yes Comment: socially Drug use: Yes Comment: socially REVIEW OF SYSTEMS Constitutional - Negative, unless otherwise indicated in HPI Eyes - Negative, unless otherwise indicated in HPI ENT - Negative, unless otherwise indicated in HPI Cardiovascular - Negative, unless otherwise indicated in HPI Respiratory - Negative, unless otherwise indicated in HPI Gastrointestinal - Negative, unless otherwise indicated in HPI Genitourinary - Negative, unless otherwise indicated in HPI Musculoskeletal - Negative, unless otherwise indicated in HPI Integumentary - Negative, unless otherwise indicated in HPI Neurologic - Negative, unless otherwise indicated in HPI Psychiatric / Behavioral - Negative, unless otherwise indicated in HPI Endocrine - Negative, unless otherwise indicated in HPI Hematological / lymphatic - Negative, unless otherwise indicated in HPI Allergic / Immunologic - Negative, unless otherwise indicated in HPI PHYSICAL EXAM GENERAL - Patient is oriented to person, place, and time and well-developed, well-nourished, and in no distress. HEAD - Normocephalic and atraumatic. Tender to percussion over frontal maxillary sinus tenderness RIGHT EAR - External ear normal. Canal patent and non erythremic, TM intact, Middle ear space normal LEFT EAR - External ear normal Canal patent and non erythremic, TM intact, Middle ear space normal NOSE - Nose normal. MOUTH/THROAT - No erythema, No exudate, No tonsillar hypertrophy RIGHT EYE - Conjunctivae is normal. Sclera is non icteric LEFT EYE - Conjunctivae is normal. Sclera is non icteric NECK - Normal range of motion. Neck supple. No cervical lymph CARDIOVASCULAR - Normal rate, regular rhythm and normal heart sounds. PULMONARY - Effort normal and breath sounds normal. MUSCULOSKELETAL - Normal range of motion. NEUROLOGICAL - Patient is alert and oriented to person, place, and time. Gait normal. SKIN - Warm and dry. No rash or adventitious lesions noted PSYCH - Mood, memory, affect and judgment normal. IMPRESSION Sinusitis PLAN Doxycycline 100 mg twice daily for 7 days Continue Mucinex Tylenol or Motrin as needed Home going recommendations for symptoms were provided during counseling and on after visit summary All patient's questions were answered at this visit. Patient indicates understanding of discharge and medication instructions prior to discharge. Patient advised to return to contact their primary care physician if symptoms persist. Patient advised if symptoms suddenly worsen to call 911 or report to the emergency room. Patient discharged in stable condition. This note was dictated using [employer] speech recognition software and may contain some errors that were a result of the program not accurately transcribing what was dictated. documented in this encounter [facility] 10-14-2024 Instructions Caren Byrnes MD - 10/14/2024 10:16 AM EST YOUR RECOVERY It may take a few weeks for your cervix to heal. While your cervix heals, you may have: - Vaginal bleeding (less than a normal menstrual period) - Mild cramping - A brown-black vaginal discharge (similar to coffee grounds) which is a result of the paste used to help stop bleeding from the procedure Do NOT put anything in the vagina for 1 week after your colposcopy if your doctor does a biopsy of your cervix. This includes sex, tampons, and douches. If you have any discomfort, you may take an over the counter pain medication (motrin, advil, ibuprofen, tylenol, etc). If this does not relieve your discomfort, contact your doctor's office for a prescription strength pain medication. It is okay to wear a sanitary pad until the discharge and spotting stops. RISKS Although problems seldom occur with colposcopy, there can be some complications. You may feel faint during and shortly after the procedure as well as have some bleeding and vaginal discharge after the procedure. There is also a risk of infection after the procedure. These complications are rare and can be easily treated. You should contact you doctor is you have any of the following: - Heavy bleeding (more than your normal period) - Bleeding with clots - Severe abdominal pain - Fever (more than 100.4F) - Foul smelling vaginal discharge RESULTS If a biopsy was taken, we will have the results of your biopsy in 1-2 weeks. If you do not hear the results of your biopsy after 2 weeks, please contact your physicians office for the results. Depending on the biopsy results, your doctor will determine your follow up plan which may include further testing or treatments. STAYING HEALTHY After the procedure, you will need to see your doctor for follow up visits during the year. At these visits your doctor will check the health of your cervix with a pap smear. After three normal pap smears, your doctor will allow you to return to having exams once a year. If you have another abnormal pap smear, you may need closer follow up for longer or you may need additional treatment. By making a few lifestyle changes after the procedure, you can help protect the health of your cervix: - Have regular pelvic exams and pap smears as ordered by your doctor. - Stop smoking as smoking increases your risk of developing a cancer of the cervix - If you have more than one sexual partner, limit your number of partners and use condoms to reduce your risks of STDs. If you have any additional questions, please contact your doctor's office. documented in this encounter [facility] 10-14-2024 Note HNO ID: [id number] Author: CAREN BYRNES MD Service: ? Author Type: Physician Type: Progress Notes Filed: 10/14/2024 10:43 Note Text: Juan R Moore is a 54 year old female with No LMP recorded (lmp unknown). Patient is postmenopausal. who presents to abnormal cervical cancer screening clinic. 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 Patient is postmenopausal. test: n/a Consultation/referral equested by Dr. Arline Haines [employer] for evaluation and counseling of patient with abnormal pap. My final recommendations will be communicated back to the requesting physician by way of shared Medical record or letter to requesting physician via [place] mail. We reviewed the patient's current and prior pap, biopsy and treatment history, HPV infection and vaccination status in detail today. Patient was counseled about the role of cytology and HPV testing in screening for cervical cancer, and the role of colposcopy in diagnosing high grade pre-cancer change that warrants intervention Explained that for patients with high grade pre-cancer change, treatment with LEEP or cold knife conization is usually the next step, and for those without high grade pre-cancer, continued close surveillance with annual pap and HPV testing is usually indicated. Discussed promotion of healthy lifestyle to boost immunity and reduce risk of progression. . Discussed role of Gardasil vaccination and recommended completion of series if indicated. Gardasil status na Explained what to expect during and after the procedure. Explained that we will contact her with results and plan of care. Updated problem list with cytology, histology, HPV results, vaccine history ACTIVE PROBLEM LIST Ascus With Positive High Risk Hpv Cervical - 10/14/2024 Comment: 08/2024 PAP ASCUS HPV POS 16 Dental Caries On Pit and Fissure Surface Penetrating into Dentin - 12/07/2016 Immunization History Administered Date(s) Administered COVID-19 original vaccine, age 12+ yr, monovalent ([employer] - PURPLE TOP) 12/08/2020 01/05/2021 09/23/2021 hepatitis B (HepB) vaccine, 3-dose series, age 20+ yr (ENGERIX-B, RECOMBIVAX HB) 05/13/2009 06/12/2009 11/16/2009 influenza (IIV3) vaccine, age 6 mo - 64 yr, trivalent (AFLURIA, FLULAVAL, FLUVIRIN, FLUZONE) 08/15/2014 influenza (IIV3) vaccine, trivalent, PF (AFLURIA, FLUARIX, FLULAVAL, FLUVIRIN, FLUZONE) 09/05/2024 influenza vaccine, unspecified formulation 08/17/2015 08/15/2016 08/22/2017 08/10/2018 08/19/2021 09/13/2022 09/12/2023 measles mumps rubella (MMR) vaccine (M-M-R II, PRIORIX) 04/08/2008 05/20/2008 tetanus diphtheria (Td) vaccine, age 7+ yr, 5 Lf tetanus, PF (TENIVAC) 10/08/2019 tetanus diphtheria pertussis (Tdap) vaccine, age 7+ yr (ADACEL, BOOSTRIX) 05/13/2009 zoster (RZV) vaccine, recombinant (SHINGRIX) 10/17/2022 Current Outpatient Medications on File Prior to Visit Medication Sig BIOTIN ORAL Take by mouth. cholecalciferol, vitamin D3, (VITAMIN D3 ORAL) Take by mouth. vitamin B complex (B COMPLEX ORAL) Take by mouth. CALCIUM ORAL Take by mouth. ASCORBIC ACID (VITAMIN C ORAL) Take by mouth. MULTIVIT-MINERALS/FERROUS FUM (MULTI VITAMIN ORAL) Take by mouth. 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 Keep between gum and cheek to absorb. (Patient not taking: Reported on 10/14/2024) albuterol HFA (PROAIR HFA) 90 mcg/actuation inhaler Inhale 2 Puffs by mouth every 4 hours as needed for wheezing/shortness of breath. Take as directed (Patient not taking: Reported on 10/14/2024) hydroquinone (ELDOQUIN FORTE) 4 % cream Apply to dark spots two times daily as needed for up to 6 weeks then stop it. (Patient not taking: Reported on 10/14/2024) ketoconazole (NIZORAL) 2 % cream Apply to affected area twice daily until clear. (Patient not taking: Reported on 10/14/2024) hydrocortisone 2.5 % cream Apply to scaly patches on face two times daily as needed for flares. Use 2 weeks on 1 week off (Patient not taking: Reported on 10/14/2024) No current facility-administered medications on file prior to visit. 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 [facility] 10-14-2024 History of Presen t illness Narrative Juan R Moore is a 54 year old female with No LMP recorded (lmp unknown). Patient is postmenopausal. who presents to abnormal cervical cancer screening clinic. 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 Patient is postmenopausal. test: n/a Consultation/referral equested by Dr. Arline Haines [facility] for evaluation and counseling of patient with abnormal pap. My final recommendations will be communicated back to the requesting physician by way of shared Medical record or letter to requesting physician via [place] mail. We reviewed the patient's current and prior pap, biopsy and treatment history, HPV infection and vaccination status in detail today. Patient was counseled about the role of cytology and HPV testing in screening for cervical cancer, and the role of colposcopy in diagnosing high grade pre-cancer change that warrants intervention Explained that for patients with high grade pre-cancer change, treatment with LEEP or cold knife conization is usually the next step, and for those without high grade pre-cancer, continued close surveillance with annual pap and HPV testing is usually indicated. Discussed promotion of healthy lifestyle to boost immunity and reduce risk of progression. . Discussed role of Gardasil vaccination and recommended completion of series if indicated. Gardasil status na Explained what to expect during and after the procedure. Explained that we will contact her with results and plan of care. Updated problem list with cytology, histology, HPV results, vaccine history ACTIVE PROBLEM LIST Ascus With Positive High Risk Hpv Cervical - 10/14/2024 Comment: 08/2024 PAP ASCUS HPV POS 16 Dental Caries On Pit and Fissure Surface Penetrating into Dentin - 12/07/2016 Immunization History Administered Date(s) Administered COVID-19 original vaccine, age 12+ yr, monovalent ([employer] - PURPLE TOP) 12/08/2020 01/05/2021 09/23/2021 hepatitis B (HepB) vaccine, 3-dose series, age 20+ yr (ENGERIX-B, RECOMBIVAX HB) 05/13/2009 06/12/2009 11/16/2009 influenza (IIV3) vaccine, age 6 mo - 64 yr, trivalent (AFLURIA, FLULAVAL, FLUVIRIN, FLUZONE) 08/15/2014 influenza (IIV3) vaccine, trivalent, PF (AFLURIA, FLUARIX, FLULAVAL, FLUVIRIN, FLUZONE) 09/05/2024 influenza vaccine, unspecified formulation 08/17/2015 08/15/2016 08/22/2017 08/10/2018 08/19/2021 09/13/2022 09/12/2023 measles mumps rubella (MMR) vaccine (M-M-R II, PRIORIX) 04/08/2008 05/20/2008 tetanus diphtheria (Td) vaccine, age 7+ yr, 5 Lf tetanus, PF (TENIVAC) 10/08/2019 tetanus diphtheria pertussis (Tdap) vaccine, age 7+ yr (ADACEL, BOOSTRIX) 05/13/2009 zoster (RZV) vaccine, recombinant (SHINGRIX) 10/17/2022 Current Outpatient Medications on File Prior to Visit Medication Sig BIOTIN ORAL Take by mouth. cholecalciferol, vitamin D3, (VITAMIN D3 ORAL) Take by mouth. vitamin B complex (B COMPLEX ORAL) Take by mouth. CALCIUM ORAL Take by mouth. ASCORBIC ACID (VITAMIN C ORAL) Take by mouth. MULTIVIT-MINERALS/FERROUS FUM (MULTI VITAMIN ORAL) Take by mouth. 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 Keep between gum and cheek to absorb. (Patient not taking: Reported on 10/14/2024) albuterol HFA (PROAIR HFA) 90 mcg/actuation inhaler Inhale 2 Puffs by mouth every 4 hours as needed for wheezing/shortness of breath. Take as directed (Patient not taking: Reported on 10/14/2024) hydroquinone (ELDOQUIN FORTE) 4 % cream Apply to dark spots two times daily as needed for up to 6 weeks then stop it. (Patient not taking: Reported on 10/14/2024) ketoconazole (NIZORAL) 2 % cream Apply to affected area twice daily until clear. (Patient not taking: Reported on 10/14/2024) hydrocortisone 2.5 % cream Apply to scaly patches on face two times daily as needed for flares. Use 2 weeks on 1 week off (Patient not taking: Reported on 10/14/2024) No current facility-administered medications on file prior to visit. 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 PAST SURGICAL HISTORY Procedure Laterality Date VAGINOSCOPY 2000, 2004 Social History Tobacco Use Smoking status: Former Current packs/day: 0.00 Types: Cigarettes Start date: 01/18/2002 Quit date: 01/18/2007 Years since quittin.7 Smokeless tobacco: Never Tobacco comments: infrequent smoker Vaping Use Vaping status: Never Used Substance Use Topics Alcohol use: Yes Comment: socially Drug use: Yes Comment: socially OB History T3 L2 SAB1 IAB0 Ectopic0 Multiple0 Live Births2 REVIEW OF SYSTEMS GENERAL: No weight loss, malaise or fevers., SEE HPI GI: Negative for abdominal discomfort, blood in stools or black stools or change in bowel habits : No history of dysuria, frequency or incontinence RIBBON TIER: neg for abnormal vaginal bleeding, abnormal vaginal discharge. SKIN: Negative for lesions, rash, and itching. All other reviewed and negative other than HPI. EXAM: BP 119/66 Ht 175.3 cm (5' 9) Wt 64.8 kg (142 lb 13.7 oz) LMP (LMP Unknown) BMI 21.10 kg/m GENERAL: pleasant, female in no apparent distress HEENT: Normocephalic, atraumatic, mucus membranes moist and no lesions CHEST: Normal inspiratory effort NEURO: alert and oriented x3,exam grossly non-focal EXTREMITIES: normal Encounter Diagnosis ICD-10-CM 1. ASCUS with positive high risk HPV cervical R87.610 R87.810 2. Human papillomavirus (HPV) type 16 DNA detected in cervical specimen R87.810 SURGICAL PATHOLOGY After discussing all of the relevant issues above, patient would like to proceed with colposcopy today ++++++++++++++++++++++++++++++++ ++++++++++++++++++ PROCEDURE NOTE UNIVERSAL PROTOCOL / SAFETY CHECKLIST Procedure to be Performed: colposcopy, cervical biopsy, endocervical curretting as indicated Sign In: A Moment of CARE was completed. Personnel directly involved with the procedure wore the appropriate PPE (Personal Protective Equipment). No special equipment needed. Patient/Surrogate Stated/Verified: PATIENT VERIFIED (optional for EMERGENT procedures): Patient name, Date of , Relevant allergies, and the intended procedure Time Out Communication: Intended patient and procedure match the source documents. Consent documented and matches the intended procedure. Relevant labs, photos, and/or imaging studies have been reviewed. No correct side/site applicable for marking and visibility. No medications required for procedure. No fire risk assessment and interventions applicable. No implant(s) inserted. Sign Out: SIGN OUT (optional for EMERGENT procedures): All specimen containers correctly labeled. All instruments, equipment, possible retained foreign bodies accounted for. Post-procedure follow-up management communicated and Plan of Care Visit completed when applicable. PROCEDURE: EXTERNAL GENITALIA: Normal in appearance without lesions VAGINA: Normal in appearance without lesions CERVIX: Speculum placed in vagina and excellent visualization of cervix achieved. Cervix swabbed x 3 with 3% acetic acid solution. Cervix grossly normal. Squamocolumnar junction not visualized. No acetowhite changes, punctations, mosaicism or atypical vasculature noted. NS lugols satellite lesions at 4 and 10-12, would need wide excision to removea tenaculum placed on anterior cervix, dilated with os finder BIOPSY: multiple ECC: done HEMOSTASIS: Obtained with silver nitrate Procedure Summary: Patient tolerated procedure well. If indicated, is patient a candidate for office LEEP? Yes although not sure she would want that ASSESSMENT: HPV effect and mild dysplasia Encounter Diagnosis ICD-10-CM 1. ASCUS with positive high risk HPV cervical R87.610 R87.810 2. Human papillomavirus (HPV) type 16 DNA detected in cervical specimen R87.810 SURGICAL PATHOLOGY PLAN: Specimens labeled and sent to Pathology. Will notify patient of results in 1-2 weeks. Post-procedure instructions reviewed and written material given to the patient. Requested Prescriptions No prescriptions requested or ordered in this encounter Future Appointments Date Time Provider Department Center 10/31/2024 3:50 PM Sherine Castro MD [facility] Caren Byrnes MD documented in this encounter [facility] 09-13-2024 History of Presen t illness Narrative Juan R Moore is a 54 year old here for SIS. No LMP recorded (lmp unknown). Patient is postmenopausal. likely LMP around age 48-49 started to bleed, noticing bleeding with wiping EMB done today ASCUS HPV POS needs colposcopy, had abnormal in 2008 Referred by: Arline Haines [id number] [facility] [id number] Chief Complaint: abnormal bleeding LMP: No LMP recorded (lmp unknown). Patient is postmenopausal. 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 Keep between gum and cheek to absorb. albuterol HFA (PROAIR HFA) 90 mcg/actuation inhaler Inhale 2 Puffs by mouth every 4 hours as needed for wheezing/shortness of breath. Take as directed hydroquinone (ELDOQUIN FORTE) 4 % cream Apply to dark spots two times daily as needed for up to 6 weeks then stop it. ketoconazole (NIZORAL) 2 % cream Apply to affected area twice daily until clear. hydrocortisone 2.5 % cream Apply to scaly patches on face two times daily as needed for flares. Use 2 weeks on 1 week off BIOTIN ORAL Take by mouth. cholecalciferol, vitamin D3, (VITAMIN D3 ORAL) Take by mouth. vitamin B complex (B COMPLEX ORAL) Take by mouth. CALCIUM ORAL Take by mouth. ASCORBIC ACID (VITAMIN C ORAL) Take by mouth. MULTIVIT-MINERALS/FERROUS FUM (MULTI VITAMIN ORAL) Take by mouth. No current facility-administered medications on file prior to visit. LMP: No LMP recorded (lmp unknown). Patient is postmenopausal. HCG: n/a UNIVERSAL PROTOCOL / SAFETY CHECKLIST Procedure to be Performed: sonohysterography / endometrial biopsy possible Sign In: A Moment of CARE was completed. Personnel directly involved with the procedure wore the appropriate PPE (Personal Protective Equipment). No special equipment needed. Patient/Surrogate Stated/Verified: PATIENT VERIFIED(optional for EMERGENT procedures): Patient name, Date of , Relevant allergies, and The intended procedure Time Out Communication: Intended patient and procedure match the source documents. Consent documented and matches the intended procedure. Relevant labs, photos, and/or imaging studies have been reviewed. No correct side/site applicable for marking and visibility. No medications required for procedure. No fire risk assessment and interventions applicable. No implant(s) inserted. Sign Out: SIGN OUT (optional for EMERGENT procedures): If endometrial biopsy was performed, all specimen containers correctly labeled. All instruments, equipment, possible retained foreign bodies accounted for. Post-procedure follow-up management communicated and Plan of Care Visit completed when applicable. PROCEDURE: EXTERNAL GENITALIA: Normal in appearance without lesions VAGINA: Normal in appearance without lesions Speculum placed into the vagina with excellent visualization of the cervix. Cervix cleaned with betadine. Anterior lip of cervix grasped with single toothed tenaculum. SIS catheter inserted into the uterus without difficulty. Speculum removed and 10 mL sterile saline injected into the uterine cavity under ultrasound guidance. Endometrial biopsy was performed. Procedure Summary: Patient tolerated procedure well. See ViewPoint for procedure results. ULTRASOUND documented in this encounter [facility] 09-05-2024 Instructions Arline Haines APRN.MAIL DELIVERER - 09/05/2024 9:25 AM EDT Images from the original note were not included. SCHEDULE: - SIS at [facility] [employer] [facility] or call [phone] (take cytotec medication the night before) must be on cycle day 6-11 (first day of your period = cycle day 1) *if you are having irregular daily bleeding or infrequent periods, okay to schedule SIS at any time, but you must avoid sexual intercourse x14 days prior to the SIS or you may be rescheduled the day of the procedure - At same time, set up Virtual Visit (like Skype, facetime visit) at [facility] to discuss your results / next steps the MONDAY after your test. I do virtual visits on Wednesdays. This is covered my most insurances and will save you a trip to the office SALINE INFUSION SONOGRAPHY (SIS) is an office procedure used to evaluate the intrauterine cavity or inside lining of the uterus. This is achieved by intrauterine infusion of a saline solution during transvaginal ultrasound (an ultrasound using a vaginal probe). A small, flexible catheter is passed through the cervix (the opening of the uterus) into the uterus so the sterile water can distend the uterine albert and allow visualization of the uterine cavity. PRIOR TO THE PROCEDURE: You may wish to take an over the counter medication such as 1,000mg of Tylenol, or 800mg of Advil, or Motrin. You may exparience a small amount of menstrual like cramping with the procedure, and this will help minimize the discomfort. NOTIFY YOUR PHYSICIAN IF YOU HAVE MITRAL VALVE PROLAPSE, JOINT REPLACEMENT, OR ROUTINELY TAKE ANTIBIOTICS FOR DENTAL PROCEDURES, ANTIBIOTICS MAY BE NECESSARY FOR THIS PROCEDURE WELL. AFTER THE PROCEDURE: A small amount of bleeding, cramping, or watery discharge is expected. You may use tampons or pads. DO NOT leave the tampons in longer than 3 hours at a time. Tylenol, Advil, or Motrin may be used for abdominal cramping or discomfort you may experience. Refrain from douching or intercourse for 48 hours. Showers or tub baths are allowed. However, refrain from hot tubs and swimming for 48 hours. NOTIFY YOUR PHYSICIAN'S OFFICE IF YOU HAVE A TEMPERATURE OF 100 DEGREES OR HIGHER, OR IF YOU EXPERIENCE SEVERE ABDOMINAL PAIN, OR HEAVY BLEEDING. ===== Cytotec (misoprostel) will be prescribed to soften the cervix before the procedure. This will make it easier to accomplish the procedure and hopefully decrease the discomfort. 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 You will need to take 2 tablets the night before the procedure. Side effects are not common when using it for this purpose but can include some uterine cramping, nausea and sometimes diarrhea and spotting. It is important if you do have side effects like cramping to not take advil or aspirin while taking the cytotec. These medications can undo the cervical softening effects. However, the day of the procedure, we recommend taking 600mg to 800mg (3-4 tablets) advil about one hour before and eating a small meal. documented in this encounter [facility] 09-05-2024 History of Presen t illness Narrative Images from the original note were not included. [facility] [place] Department of Benign Gynecology [facility] PATIENT NAME: Juan R Moore PCP: Sherine Castro MD DATE: 09/05/2024 Chief Complaint CC: PMB History of Present Illness: Juan R is a 54 year old who presents for problem visit for PMB. PT advised she has been spotting since Monday When she urinates she sees the blood in the toilet It is also on her TP when she wipes Doesn't notice it in her underwear She is having a little abdominal discomfort lower abd and dull Mom has hx of ovarian CA Has never had this happen in the past Denies vaginal itching, irritation, discharge or odor. Menses: no menses - postmenopausal- light spotting since monday Contraception: none HPV vaccine: No Last Pap: 08/28/2018, normal HPV: 08/22/2018, negative History of abnormal pap: No Tobacco use? No Tafe Lecturer offered: Patient declines. OB History T3 L2 SAB1 IAB0 Ectopic0 Multiple0 Live Births2 Etl Architect History LMP: LMP Unknown, Postmenopausal Age at Menarche: Age at First : Age at Menopause: Etl Architect History Comments: Sexual Activity: Yes; Male Contraception: Pill Review of Systems: General: Feels well. Denies fatigue, fever, chills, unintentional weight loss/weight gain. Psych: Feels stable, denies anxiety, depression or mood changes. Stress is tolerable. Abdomen: No nausea, vomiting, diarrhea, or constipation. No bloating, early satiety, indigestion, or increased flatulence. 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 Family History: Family History Problem Relation Age of Onset Hypertension Mother Cancer Mother ovarian Diabetes Father Coronary Artery Disease Father Coronary Artery Disease Brother 38 cardiac Diabetes Brother Cervical Cancer Maternal Grandmother Past Surgical History: PAST SURGICAL HISTORY Procedure Laterality Date VAGINOSCOPY 2000, 2004 Social History: Social History Tobacco Use Smoking status: Former Current packs/day: 0.00 Types: Cigarettes Start date: 01/18/2002 Quit date: 01/18/2007 Years since quittin.6 Smokeless tobacco: Never Tobacco comments: infrequent smoker Vaping Use Vaping status: Never Used Substance Use Topics Alcohol use: Yes Comment: socially Drug use: Yes Comment: socially Allergies: ALLERGIES Allergen Reactions Bees Swelling hives Kiwi Hives, Itching, Other: See Comments Allergies updated: Yes Medications: Current Outpatient Medications Medication Sig albuterol HFA (PROAIR HFA) 90 mcg/actuation inhaler Inhale 2 Puffs by mouth every 4 hours as needed for wheezing/shortness of breath. Take as directed hydroquinone (ELDOQUIN FORTE) 4 % cream Apply to dark spots two times daily as needed for up to 6 weeks then stop it. ketoconazole (NIZORAL) 2 % cream Apply to affected area twice daily until clear. hydrocortisone 2.5 % cream Apply to scaly patches on face two times daily as needed for flares. Use 2 weeks on 1 week off BIOTIN ORAL Take by mouth. cholecalciferol, vitamin D3, (VITAMIN D3 ORAL) Take by mouth. vitamin B complex (B COMPLEX ORAL) Take by mouth. CALCIUM ORAL Take by mouth. ASCORBIC ACID (VITAMIN C ORAL) Take by mouth. MULTIVIT-MINERALS/FERROUS FUM (MULTI VITAMIN ORAL) Take by mouth. No current facility-administered medications for this visit. Medications reviewed in detail and updated PRN: Yes Physical Exam: BP 139/65 Wt 142 lb 13.7 oz (64.8 kg) LMP (LMP Unknown) BMI 21.72 kg/m GENERAL: Well appearing, alert, well-hydrated, well nourished female in no apparent distress ABDOMEN: soft, non-tender, and no masses PELVIC: external genitalia normal, normal Bartholin's glands, urethra, [place]'s glands, no vulvar lesions, no cervical lesions, good vaginal support, physiologic discharge present, normal appearing perineal body and perianal region, mild amount of blood in vaginal canal on exam BIMANUAL: uterus normal size, shape and consistency, no adnexal masses, and non-tender RECTOVAGINAL: deferred. NEURO: alert and oriented x3 EXTREMITIES: normal The sensitive examination was discussed with the Patient or Patient's Authorized Hydraulic Press Tender. As applicable, any other physician, advance practice provider, medical student, or other health professional student that will be observing or involved in the sensitive examination for educational or training purposes was discussed with the Patient or Authorized Hydraulic Press Tender. The Patient or Authorized Hydraulic Press Tender has agreed to proceed with the sensitive examination. (Sensitive examination includes inspection and/or palpation of the breasts, pelvis, prostate and anorectal regions) Recent labs/Diagnostic studies: I have thoroughly reviewed this patients previous notes, encounters, labs, and results prior to this visit. Assessment and Plan ASSESSMENT/PLAN: 1. PMB (postmenopausal bleeding) - ICD9: 627.1, ICD10: N95.0 (primary diagnosis) - SONOHYSTEROGRAPHY (SIS) US WHI - MISOPROSTOL 200 MCG TABLET - ENDOMETRIAL BIOPSY - WIL/TRICHOMONAS NAAT - BACTERIAL VAGINOSIS NAAT 2. Abdominal discomfort - ICD9: 789.00, ICD10: R10.9 - UA DIP,URINE HCG (POC) 3. Screening for cervical cancer - ICD9: V76.2, ICD10: Z12.4 - Completed pelvic and breast exam - Encouraged monthly BSE - Follow up for annual exam in one year. - PAP TEST 4. Screen for STD (sexually transmitted disease) - ICD9: V74.5, ICD10: Z11.3 - GONORRHEA/CHLAMYDIA NAAT A/P PMB - PAP/HPV done today. Will treat based on results. - Accepted STD check for Gonorrhea, Chlamydia and trichomonas. - BVAmp, CVTV sent to evaluate for yeast / BV. Will treat based on results. -Discussed avoiding triggers that can throw off the vaginal oriana - no bubble baths, washing the vulva only with water and use mild dove soap, discussed using mild/hypoallergenic detergent and consider using the extra rinse function to get extra soap out of clothes, washing sex toys between use, no douching, decreasing sugar intake and wearing loose cotton underwear. - Reviewed SIS procedure at length. ACOG patient education given for review. Cytotec for cervical softening HS before procedure, discussed R/B/A, side effects and how to take. Advised to take 600-800mg of ibuprofen and eat a light meal 1 hour before procedure. Discussed R/B/A, side effects and how to take. -Follow up with [facility] after SIS to discuss results - Education regarding SIS placed in AVS and discussed in detail. - UA done today. Resulted negative. Small amounts of blood from vaginal canal. SIGNATURE: Arline Haines APRN.CNP Medical Decision Making: Problems: Moderate: New problem with uncertain prognosis Data: Unique test result(s) reviewed: 1 Unique test(s) ordered: 3+ Risk: Moderate: Drug management Medical Decision Making Level: 4 - Moderate documented in this encounter [facility] 10-17-2023 History of Presen t illness Narrative note added pt reports she purchased 2 covid tests yesterday both were negative KH Juan R Moore is a 53 year old female who presents with complaint of URI, sinus symptoms, nasal congestion, rhinorrhea, facial pain/pressure frontal, hoarse voice, post nasal drip, headache- mild, ear pain R>L , and ear pressure R>L for 2 weeks. Associated symptoms include cough- dry and barky. She denies fever, dyspnea, and wheezing. Treatments tried include OTC cough syrup and Guaifenesin/Mucinex with partial relief of symptoms. 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 PHYSICAL EXAM: BP 171/83 Pulse 74 Temp 36.6 C (97.9 F) LMP (LMP Unknown) General appearance: healthy, alert, cooperative, pleasant, in no acute distress Ears: R TM - clear with good landmarks, mildly red, intact, nl light reflex, L TM - clear with good landmarks, nl light reflex Sinus palpation point tender frontal and maxilarry sinus loza RIGHT SIDE mostly Nose: congested , reddened , clear drainage seen Oropharynx: moist without lesions, Neck: supple and no adenopathy Heart: regular rate and rhythm, without murmur Lungs: clear to auscultation, without rales or wheeze, good air exchange (J01.10) Acute frontal sinusitis, recurrence not specified (primary encounter diagnosis) Comment: Plan: amoxicillin-clavulanate potassium (AUGMENTIN) 875-125 mg per tablet, albuterol HFA (PROAIR HFA) 90 mcg/actuation inhaler, fluconazole (DIFLUCAN) 150 mg tablet (R05.1) Acute cough Comment: Plan: amoxicillin-clavulanate potassium (AUGMENTIN) 875-125 mg per tablet, albuterol HFA (PROAIR HFA) 90 mcg/actuation inhaler, fluconazole (DIFLUCAN) 150 mg tablet continue current treatment SHELIA Granados, [employer] [facility] documented in this encounter [facility] 03-11-2023 History of Presen t illness Narrative This note was created using [employer]. Subjective Juan R Moore is a 53 year old female. Has had some sinus symptoms for about a week or so The history is provided by the patient. No database marketing analyst was used. Ear Problem There is pain in the right ear. This is a new problem. The current episode started today. The problem occurs constantly. The problem has been unchanged. The pain is moderate. Associated symptoms include rhinorrhea and a sore throat. Pertinent negatives include no abdominal pain, coughing, diarrhea, ear discharge, headaches, hearing loss, neck pain, rash or vomiting. Treatments tried: robitussin tylenol. The treatment provided mild relief. Review of Systems Constitutional: Negative for fatigue and fever. HENT: Positive for congestion, ear pain, postnasal drip, rhinorrhea, sinus pressure, sinus pain and sore throat. Negative for ear discharge, hearing loss, sneezing and tinnitus. Respiratory: Negative for cough. Cardiovascular: Negative. Gastrointestinal: Negative for abdominal pain, diarrhea and vomiting. Musculoskeletal: Negative for neck pain. Skin: Negative for rash. Allergic/Immunologic: Negative for environmental allergies. Neurological: Negative for light-headedness and headaches. All other systems reviewed and are negative. Objective BP 113/70 Pulse (!) 58 Temp 36.6 C (97.9 F) (Temporal) Resp 16 LMP (LMP Unknown) Physical Exam Vitals and nursing note reviewed. Constitutional: Appearance: She is well-developed. She is ill-appearing. HENT: Head: Normocephalic and atraumatic. Right Ear: Hearing and external ear normal. A middle ear effusion is present. Tympanic membrane is erythematous. Left Ear: Hearing, tympanic membrane, ear canal and external ear normal. Nose: Congestion and rhinorrhea present. Rhinorrhea is clear. Left Sinus: Maxillary sinus tenderness and frontal sinus tenderness present. Mouth/Throat: Lips: [place]. Mouth: Mucous membranes are moist. Pharynx: Oropharynx is clear. Uvula midline. Posterior oropharyngeal erythema present. Cardiovascular: Rate and Rhythm: Normal rate and regular rhythm. Heart sounds: Normal heart sounds, S1 normal and S2 normal. Pulmonary: Effort: Pulmonary effort is normal. Breath sounds: Normal breath sounds and air entry. Lymphadenopathy: Cervical: No cervical adenopathy. Skin: General: Skin is warm and dry. Neurological: General: No focal deficit present. Mental Status: She is alert and oriented to person, place, and time. Psychiatric: Behavior: Behavior is cooperative. Assessment and Plan ASSESSMENT/PLAN: 1. Acute otitis media, right - ICD9: 382.9, ICD10: H66.91 (primary diagnosis) - Will begin treatment with Amoxicillin for 10 days - The patient should also be given OTC decongestants prn for the first 5-7 days of treatment. - Supportive care with plenty of fluids, rest, and analgesia prn. - Follow up in 3-5 days if symptoms persist or worsen. - ER/911 for any new or worsening symptoms PCP in 24 hours for persistent symptoms Red flag s/s discussed and when immediate eval indicated Symptom management, treatment plan and diagnosis discussed in detail Pt understands and agrees with POC Uncontrolled fevers, nausea, vomiting, diarrhea, inability to retain PO fluids, decreased urinary output, signs of lethargy or dehydration, or any new or worsening symptoms indicate immediate eval ER/911 - Instructed to go to Emergency Department right away with any severe worsening chest pain, shortness of breath, headache, dizziness, weakness, numbness,leg swelling , tingling, problems walking or speaking or any other concerning symptoms. - Patient left in stable condition after questions answered and pt verbalizes understanding - AMOXICILLIN 875 MG TABLET 2. Antibiotic-induced yeast infection - ICD9: 112.9, E930.9, ICD10: B37.9, T36.95XA Prev tolerated Education provided - FLUCONAZOLE 150 MG TABLET Anjum Delarosa APRN.MAIL DELIVERER documented in this encounter [facility] 03-11-2023 Instructions Domenica Nevarez MA - 03/11/2023 1:00 PM EDT Increase fluids and get adequate rest Take entire course of antibiotics, as prescribed Take antibiotics with food, as they can cause an upset stomach Encouraged a daily probiotic (or eat yogurt with live cultures). Space your probiotic out from your antibiotics at least 1-2 hours. Can apply heat or warm compresses to external ear. Be careful to NOT fall asleep on a heating pad, as this can result in alonso. Can take acetaminophen and/or ibuprofen, as needed, for fever/pain; avoid NSAIDs with any history of ulcers or gastric surgery Avoid taking NSAIDs on an empty stomach Avoid use of QTIPs, headphones/ear buds placed into the ear/s Follow up with your PCP if you continue to experience symptoms, worsening of pain, drainage from the ear, chills/fever, and/or dizziness Encourage following up with an ENT for chronic or recurrent ear infections ([phone]) Go to the ER if you begin to experience any severe symptoms, such as stiffness in neck, difficulty waking up or lethargy, twitching of facial muscles, severe dizziness, and/or with severe headaches [facility] [phone] LAB HOURS: Lab is open Monday - 7:30 am - 6 pm, Monday 7:30 am to 5 pm, and Saturday 8 am -12 pm. LAB ORDERS 365 days after they are entered. If your lab orders , you may be required to wait in the lab while they are reinstated. STANDING ORDERS are recurring orders with an expiration date. The interval will indicate how often the test should be completed. FASTING LAB means nothing to eat or drink (except water) 10-12 hours before your blood is drawn. CT MRI IVP If you have one of these radiology exams ordered along with blood work, please complete the blood work at least one day prior to the scheduled exam. [facility] The pharmacy is open Monday - 8 am - 8 pm, and Monday 8 am - 6 pm. [facility] Radiology is open Monday - 7:30 am - 6 pm, Monday 7:30 am - 5 pm, and Monday 8 am - 12 pm. [facility] WALK-IN SCREENING MAMMOGRAPHY Walk-In mammography screenings are available Tuesdays and only-Walk in hours 3:00pm ( first appointment) until 6:20pm (last appointment) No appointment is necessary. A prior doctor's order is not required. [facility] AT [facility], AND [facility] No appointment is necessary. Express Care is for patients ages 2 years and older. For Express [facility] LOCATIONS, HOURS OF OPERATION and CURRENT WAIT TIMES, visit the following link: [email or web address] My Chart Schedule My Appointment enables you to view your established primary care provider's open schedule and book an appointment online in real-time. This feature is available in internal medicine, family medicine, or pediatrics at any of our [facility] locations and main campus. documented in this encounter [facility] 11-10-2022 Miscellaneous Notes Faxed Terri Stone LPN Forms and letter completed, please fax to [facility] Sherine Castro MD I don't see any [facility] form in any encounters Terri Stone LPN documented in this encounter [facility] 10-17-2022 Instructions Sherine Castro MD - 10/17/2022 1:33 PM EST Images from the original note were not included. Bowel Preparation Instructions for: Miralax-Gatorade Preparations IF YOU DO NOT FOLLOW THESE DIRECTIONS, YOUR COLONOSCOPY WILL BE CANCELLED. Snider Instructions: Your bowel must be empty so that your doctor can clearly view your colon. Follow all of the instructions in this handout EXACTLY as they are written. Do NOT eat any solid food the ENTIRE day before your colonoscopy. Buy your bowel preparation at least 5 days before your colonoscopy. Four (4) Dulcolax laxative tablets containing 5mg of bisacodyl each (NOT Dulcolax stool softener) One (1) 8.3oz. bottle Miralax (238 grams) or generic equivalent 2 x 32oz. Bottles of Gatorade (NOT RED) Diabetic Patients: Use G2 (Gatorade 2) TRANSPORTATION on the Day of Your Exam A responsible adult MUST be present with you at Check In prior to your colonoscopy and REMAIN in the endoscopy area until you are discharged. You are NOT ALLOWED to drive, take a taxi or bus, or leave the Endoscopy Center ALONE. If you do not have a responsible industrial truck driver (family member or friend) with you to take you home, your exam cannot be done with sedation and will be cancelled. Please bring a list of all of your current medications, including any [id number] medications with you. Medications If you take insulin, diabetic medications or blood thinners such as Coumadin (warfarin), Plavix (clopidogrel), Ticlid (ticlopidine hydrochloride), Agrylin (anagrelide), Xarelto (Rivaroxaban), Pradaxa (Dabigatran), Eliquis (Apixaban), and Effient (Prasugrel). You MUST call the doctors who orders those medicines for instructions on altering the dosage before your colonoscopy. All other medications should be taken the day of the exam with a sip of water including ASPIRIN. Five (5) Days Before Your Colonoscopy Do NOT take medicines that stop diarrhea - such as Imodium, Kaopectate, or Pepto Bismol. Do NOT take fiber supplements - such as Metamucil, Citrucel, or Perdiem. Do NOT take products that contain iron - such as multi-vitamins (the label lists what is in the products). Three (3) Days Before Your Colonoscopy Do NOT eat high-fiber foods - such as popcorn, beans, seeds (flax, sunflower, quinoa), multigrain bread, nuts, salad/vegetables, or fresh and dried fruit. 1 Bowel Preparation Instructions for: Miralax-Gatorade Preparations One (1) Day Before Your Colonoscopy Only drink clear liquids the ENTIRE DAY before your colonoscopy. Do NOT eat any solid foods. Drink at least 8 ounces of clear liquids every hour after waking up. The clear liquids you can drink include: Clear Liquid (NO RED LIQUIDS) DO NOT DRINK Gatorade, Pedialyte or Powerade Clear broth or bouillon Coffee or tea (no milk or non-dairy creamer) Carbonated and non-carbonated soft drinks Luis-Aid or other fruit flavored drinks Strained fruit juices (no pulp) Jell-O, popsicles, hard candy Water Alcohol Milk or non-dairy creamers Noodles or vegetables in soup Juice with pulp Liquid you cannot see through Do not use tobacco/vaping products Mix 1/2 of Miralax bottle (119 grams) in each 32 ounces of Gatorade bottle until dissolved. Keep cool in the refrigerator. DO NOT ADD ICE. The bowel preparation solution will be consumed in two parts. Part 1 5:00 PM - Evening before your colonoscopy Take 4 Dulcolax tablets. 6 PM - Evening before your colonoscopy Drink 32 oz. of the mixed solution. Drink an 8 oz. glass of bowel preparation every 15 minutes for a total of 4 glasses. Fifteen (15) minutes later, drink an 8 oz. glass of of clear liquids every 15 minutes for a total of 2 glasses. You may continue to drink clear liquids till midnight. Part 2 On the day of your colonoscopy you may drink clear liquids up to (three) 3 hours prior to procedure. 4 1/2 hours before your colonoscopy Take another 32 oz. bottle of mixed solution. Drink an 8 oz. glass of bowel prep every 15 minutes for a total of 4 glasses. Fifteen (15) minutes later, drink an 8 oz. glass of clear liquids every 15 minutes for a total of 2 glasses. You may continue to drink clear liquids up to (three) 3 hours before your exam. 2 10/2019 Bowel Preparation Instructions for: Miralax-Gatorade Preparations IF YOU DO NOT FOLLOW THESE DIRECTIONS, YOUR COLONOSCOPY WILL BE CANCELLED. Snider Instructions: Your bowel must be empty so that your doctor can clearly view your colon. Follow all of the instructions in this handout EXACTLY as they are written. Do NOT eat any solid food the ENTIRE day before your colonoscopy. Buy your bowel preparation at least 5 days before your colonoscopy. Four (4) Dulcolax laxative tablets containing 5mg of bisacodyl each (NOT Dulcolax stool softener) One (1) 8.3oz. bottle Miralax (238 grams) or generic equivalent 2 x 32oz. Bottles of Gatorade (NOT RED) Diabetic Patients: Use G2 (Gatorade 2) TRANSPORTATION on the Day of Your Exam A responsible adult MUST be present with you at Check In prior to your colonoscopy and REMAIN in the endoscopy area until you are discharged. You are NOT ALLOWED to drive, take a taxi or bus, or leave the Endoscopy Center ALONE. If you do not have a responsible industrial truck driver (family member or friend) with you to take you home, your exam cannot be done with sedation and will be cancelled. Please bring a list of all of your current medications, including any Cjjl-dhc-Mctadzs medications with you. Medications If you take insulin, diabetic medications or blood thinners such as Coumadin (warfarin), Plavix (clopidogrel), Ticlid (ticlopidine hydrochloride), Agrylin (anagrelide), Xarelto (Rivaroxaban), Pradaxa (Dabigatran), Eliquis (Apixaban), and Effient (Prasugrel). You MUST call the doctors who orders those medicines for instructions on altering the dosage before your colonoscopy. All other medications should be taken the day of the exam with a sip of water including ASPIRIN. Five (5) Days Before Your Colonoscopy Do NOT take medicines that stop diarrhea - such as Imodium, Kaopectate, or Pepto Bismol. Do NOT take fiber supplements - such as Metamucil, Citrucel, or Perdiem. Do NOT take products that contain iron - such as multi-vitamins (the label lists what is in the products). Three (3) Days Before Your Colonoscopy Do NOT eat high-fiber foods - such as popcorn, beans, seeds (flax, sunflower, quinoa), multigrain bread, nuts, salad/vegetables, or fresh and dried fruit. 1 Bowel Preparation Instructions for: Miralax-Gatorade Preparations One (1) Day Before Your Colonoscopy Only drink clear liquids the ENTIRE DAY before your colonoscopy. Do NOT eat any solid foods. Drink at least 8 ounces of clear liquids every hour after waking up. The clear liquids you can drink include: Clear Liquid (NO RED LIQUIDS) DO NOT DRINK Gatorade, Pedialyte or Powerade Clear broth or bouillon Coffee or tea (no milk or non-dairy creamer) Carbonated and non-carbonated soft drinks Luis-Aid or other fruit flavored drinks Strained fruit juices (no pulp) Jell-O, popsicles, hard candy Water Alcohol Milk or non-dairy creamers Noodles or vegetables in soup Juice with pulp Liquid you cannot see through Do not use tobacco/vaping products Mix 1/2 of Miralax bottle (119 grams) in each 32 ounces of Gatorade bottle until dissolved. Keep cool in the refrigerator. DO NOT ADD ICE. The bowel preparation solution will be consumed in two parts. Part 1 5:00 PM - Evening before your colonoscopy Take 4 Dulcolax tablets. 6 PM - Evening before your colonoscopy Drink 32 oz. of the mixed solution. Drink an 8 oz. glass of bowel preparation every 15 minutes for a total of 4 glasses. Fifteen (15) minutes later, drink an 8 oz. glass of of clear liquids every 15 minutes for a total of 2 glasses. You may continue to drink clear liquids till midnight. Part 2 On the day of your colonoscopy you may drink clear liquids up to (three) 3 hours prior to procedure. 4 1/2 hours before your colonoscopy Take another 32 oz. bottle of mixed solution. Drink an 8 oz. glass of bowel prep every 15 minutes for a total of 4 glasses. Fifteen (15) minutes later, drink an 8 oz. glass of clear liquids every 15 minutes for a total of 2 glasses. You may continue to drink clear liquids up to (three) 3 hours before your exam. 2 10/2019 documented in this encounter [facility] 10-17-2022 History of Presen t illness Narrative Juan R Moore is a 52 year old female who presents today for a Physical exam. She has no specific concerns today. Labs due Last 2016 Using claritin every day Flonase- only when needed Dryness with occasional nosebleedings Stuffiness persisting and not optimally controlled Will try increasing to daily flonase and nasal saline/gel prn Health Maintenance: PAP: Her last Pap smear was 2017 negative HPV. MAMMOGRAM: Her last mammogram was 08/11. Colonoscopy: DUE Review of Systems: The remainder of the review of systems is negative. Current Medications and allergies reviewed. ACTIVE PROBLEM LIST Dental Caries On Pit and Fissure Surface Penetrating into Dentin PHYSICAL EXAMINATION: BP 130/83 Pulse (!) 55 Temp 36.5 C (97.7 F) (Temporal) Wt 58.9 kg (129 lb 14.4 oz) LMP (LMP Unknown) BMI 19.64 kg/m General: healthy, alert, cooperative, pleasant, in no acute distress HEENT: Normocephalic, Eyes: conjunctiva/corneas normal, EOMI, Right TM: clear with good landmarks, nl light reflex Left TM: clear with good landmarks, nl light reflex Nares: clear, OP: moist without lesions, teeth in good repair Neck: Supple, no lymphadenopathy, no thyroidmegaly CV: regular rate and rhythm, without murmur Lungs: clear to auscultation, without rales or wheeze, good air exchange Back: straight and symmetric Ext: no edema in LE bilaterally, good distal pulses Skin: Clear without rash ASSESSMENT/PLAN: 1. Wellness examination - ICD9: V70.0, ICD10: Z00.00 (primary diagnosis) - Counseled on healthy diet and regular exercise - Calcium intake with supplements or by diet of 1000 mg/day for under 50, 1272-8347 mg/day for 50+ - Follow up for annual exam in one year 2. Screening for diabetes mellitus (DM) - ICD9: V77.1, ICD10: Z13.1 - COMP METABOLIC PANEL 3. Screening, lipid - ICD9: V77.91, ICD10: Z13.220 - LIPID PANEL BASIC 4. Screening for colon cancer - ICD9: V76.51, ICD10: Z12.11 - COLONOSCOPY SCREENING 5. Encounter for immunization - ICD9: V03.89, ICD10: Z23 - ZOSTER VACC RECOMBINANT,IM Sherine Castro MD documented in this encounter [facility] 07-26-2022 Miscellaneous Notes July 26, 2022 PID: [id number] Juan R Moore [address] [place] [address] Dear Ms. Moore, We are pleased to inform you that the results of your recent breast imaging exam on 07/26/2022 are normal. Your mammogram demonstrates that you have dense breast tissue, which could hide abnormalities. Dense breast tissue, in and of itself, is a relatively common condition. Therefore, this information is not provided to cause undue concern; rather, it is to raise your awareness and promote discussion with your health care provider regarding the presence of dense breast tissue in addition to other risk factors. Early detection of cancer is very important. We also understand recommendations regarding breast cancer screening are controversial. Please discuss with your primary care provider which strategy is best for you and whether a mammogram is right for you. Your imaging studies and report will be kept on file at [facility] as part of your permanent medical record and are available for your continuing care. Thank you for allowing us to help in meeting your health care needs. Sincerely, Dr. Pratt Interpreting Radiologist [facility] (Normal over 40) documented in this encounter [facility] 07-26-2022 History of Presen t illness Narrative Radiology Service Progress Note PATIENT NAME: Juan R Moore DATE OF SERVICE: July 26, 2022 TIME: 8:19 AM PATIENT IDENTITY VERIFICATION COMPLETED USING TWO (2) IDENTIFIERS: Name and Date of confirmed by patient verbally. FALL SCREENING: Has the patient had 2 falls in the last year or 1 fall with injury or currently using an Ambulatory Assistive Device (Walker, Cane, Wheelchair, Crutches, etc.)? No PATIENT GENDER DATA: Female. status: : No status: NO. PATIENT RELEVANT IMPLANT DATA REVIEWED: Yes RADIOLOGY DEPARTMENT: Mammography PERIPHERAL IV DATA: Not applicable SIGNED BY: Edilma Peres [employer] July 26, 2022 8:19 AM documented in this encounter [facility] 06-01-2022 History of Presen t illness Narrative Established patient LV: 10/22/[address] Doretha Hill CHIEF COMPLAINT: Moles HISTORY OF PRESENT ILLNESS: Juan R Moore is a 52 year old female here for evaluation of moles. 1. 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 Skin as per HPI Medications Current Outpatient Medications Medication Sig polyethylene glycol 3350 (MIRALAX, GLYCOLAX) 17 gram/dose powder Use as directed for Miralax / Gatorade Bowel Prep Kit Gatorade Sports Drink Use as directed for Miralax / Gatorade Bowel Prep Kit Bisacodyl (DULCOLAX) 5 mg tab Use as directed for Miralax / Gatorade Bowel Prep Kit hydrocortisone 2.5 % cream Apply to scaly patches on face two times daily as needed for flares. Use 2 weeks on 1 week off BIOTIN ORAL Take by mouth. cholecalciferol, vitamin D3, (VITAMIN D3 ORAL) Take by mouth. vitamin B complex (B COMPLEX ORAL) Take by mouth. CALCIUM ORAL Take by mouth. ASCORBIC ACID (VITAMIN C ORAL) Take by mouth. MULTIVIT-MINERALS/FERROUS FUM (MULTI VITAMIN ORAL) Take by mouth. No current facility-administered medications for this visit. PHYSICAL EXAM: General: awake, alert, no acute distress Neuropsych: appropriate mood and affect Eyes: Sclerae anicteric, without conjunctival injection, eyelids unremarkable Skin: Skin exam was performed today including the following: scalp, face, neck, chest, abdomen, back, trunk, bilateral upper and lower extremities. Pertinent findings include: - Few scattered bright red dome-shaped papules on the trunk and extremities - Scattered light brown stellate macules on the face, shoulders, chest, and upper extremities - Scattered, evenly colored, round brown macules and papules with regular borders on the trunk and extremities - Numerous scattered skin-colored and brown, waxy, stuck-on papules and plaques on the trunk and extremities - Erythematous papule on left side of nose ASSESSMENT & PLAN: #Lentigines #Seborrheic keratoses #Romero angiomas - Reassurance provided regarding the benign nature of these lesions. - Discussed that treatment considered cosmetic and not covered by insurance. - Hydroquinone 4% cream twice daily to face for 4-6 weeks then stop. ADRs discussed, but not limited to: irritation and paradoxical darkening (exogenous ochronosis).Patient to stop if they get skin irritation or darkening. Not to use longer than 3 months as this can increase risk of darkening. #Multiple benign nevi - Complete skin exam performed today with no outlier lesions identified - Reassured patient of benign nature of these lesions. - Recommend monthly self skin exams. Return for lesions that are growing, changing or symptomatic. - Recommend daily photoprotection with broad-spectrum sunscreen, avoidance of sun during peak hours, and sun protective clothing. - Dermoscopy was used for physical examination of pigmented lesions during today s office visit. #Seborrheic dermatitis - Ketoconazole cream twice daily to affected area until clear. Discussed potential adverse effects of medication. Return to clinic: 1 year The documentation for this note was completed by Gabriella Bear RN acting as scribe for Suzanne Gómez MD. June 01, 2022 9:51 AM. Morena Ch MD Dermatology Resident, PGY-3 Medical Decision Making: Problems: Moderate: 2+ stable chronic illnesses Risk: Moderate: Drug management Medical Decision Making Level: 4 - Moderate Attending Note I agree with the ROS, and Past Histories independently gathered by the clinical intranet support and the remaining scribed note accurately describes my personal service to the patient. I evaluated the patient and personally participated in the snider components. I agree with the resident/fellow's findings and plan as documented and have discussed the case and management of the patient's care with the resident/fellow. I agree with the resident's findings and plan. Signature: Suzanne Gómez MD Date: 06/02/2022 Time: 9:59 AM documented in this encounter [facility] 08-05-2008 History of Past i llness Narrative Problem Noted Date Resolved Date Acute pharyngitis 08/05/2008 05/19/2009 documented as of this encounter (statuses as of 06/02/2022) [facility] History of Past illness Narrative* Problem Noted Date Resolved Date Acute pharyngitis 08/05/2008 05/19/2009 documented as of this encounter (statuses as of 07/28/2022) [facility] of Past illness Narrative* Problem Noted Date Resolved Date Acute pharyngitis 08/05/2008 05/19/2009 documented as of this encounter (statuses as of 10/17/2022) [facility] History of Past illness Narrative* Problem Noted Date Resolved Date Acute pharyngitis 08/05/2008 05/19/2009 documented as of this encounter (statuses as of 11/11/2022) [facility] of Past illness Narrative* Problem Noted Date Resolved Date Acute pharyngitis 08/05/2008 05/19/2009 documented as of this encounter (statuses as of 03/11/2023) [facility] of [facility] Narrative* Problem Noted Date Diagnosed Date Resolved Date Acute pharyngitis 08/05/2008 05/19/2009 documented as of this encounter (statuses as of 09/04/2023) [facility] of Past [facility] Narrative* Problem Noted Date Diagnosed Date Resolved Date Acute pharyngitis 08/05/2008 05/19/2009 documented as of this encounter (statuses as of 10/17/2023) [facility] Diagnosis Lentigines- Primary Other dyschromia Multiple benign nevi Benign neoplasm of skin, site unspecified Romero angioma Nevus, non-neoplastic Seborrheic keratosis Other seborrheic keratosis Seborrheic dermatitis Seborrheic dermatitis, unspecified [facility] Diagnosis Wellness examination- Primary Screening for diabetes mellitus (DM) Screening for diabetes mellitus Screening, lipid Screening for lipoid disorders Screening for colon cancer Special screening for malignant neoplasms, colon Encounter for immunization Need for other specified prophylactic vaccination against single bacterial disease [facility] Diagnosis Acute otitis media, right- Primary Unspecified otitis media Antibiotic-induced yeast infection Candidiasis of unspecified site [facility] Diagnosis Encounter for screening mammogram for breast cancer [facility] Diagnosis Acute frontal sinusitis, recurrence not specified- Primary Acute cough [facility] Diagnosis Encounter for screening mammogram for breast cancer [facility] Diagnosis Encounter for screening mammogram for breast cancer [facility] Diagnosis PMB (postmenopausal bleeding)- Primary Postmenopausal bleeding Abdominal discomfort Abdominal pain, unspecified site Screening for cervical cancer Screening for malignant neoplasm of the cervix Screen for STD (sexually transmitted disease) Screening examination for venereal disease [facility] Diagnosis Postmenopausal bleeding- Primary [facility] Diagnosis ASCUS with positive high risk HPV cervical- Primary Cervical high risk human papillomavirus (HPV) DNA test positive Human papillomavirus (HPV) type 16 DNA detected in cervical specimen [facility] Diagnosis Sinusitis, unspecified chronicity, unspecified location- Primary [facility] Diagnosis ASCUS with positive high risk HPV cervical- Primary Cervical high risk human papillomavirus (HPV) DNA test positive [facility] Diagnosis Wellness examination- Primary Screening for colon cancer Special screening for malignant neoplasms, colon [facility] Diagnosis EMY II (cervical intraepithelial neoplasia II)- Primary Moderate dysplasia of cervix documented in this encounter [facility] note* Diagnosis EMY II (cervical intraepithelial neoplasia II)- Primary Moderate dysplasia of cervix documented in this encounter [facility] note* Diagnosis S/P LEEP- Primary Other postprocedural status documented in this encounter [facility] note* Diagnosis Bacterial sinusitis- Primary Unspecified sinusitis (chronic) Antibiotic-induced yeast infection Candidiasis of unspecified site documented in this encounter [facility] note* Diagnosis Screening for cervical cancer- Primary Screening for malignant neoplasm of the cervix documented in this encounter [facility] for referral (narrative)* Outpatient Procedure (Routine) - Pending Review Specialty Diagnoses / Procedures Referred By Hermelinda Referred To Contact [facility] Diagnoses Screening for colon cancer Procedures COLONOSCOPY SCREENING COLONOSCOPY FLX DX W/[place] [address] [place] [address] [facility] [address] [place] [address] Referral ID Status Reason Start Date Expiration Date Visits Requested Visits Authorized [id number] Pending Review Auto-Generat ed Referral 2 10/17/2023 1 1 [facility] for referral (narrative)* Diagnostic Procedure Only (Routine) - Pending Review Specialty Diagnoses / Procedures Referred By Hermelinda dick Referred To Contact [facility] Diagnoses Encounter for screening mammogram for breast cancer Procedures CAM SCREENING SCREENING MAMMOGRAPHY BI 2-[place] [address] [place] [address] [facility] [address] [place] [phone] Referral ID Status Reason Start Date Expiration Date Visits Requested Visits Authorized [id number] Pending Review Auto-Generat ed Referral 3 09/28/2024 1 1 [facility] for referral (narrative)* Diagnostic Procedure Only (Routine) - New Request Specialty Diagnoses / Procedures Referred By Hermelinda t Referred To Contact [facility] Diagnoses Encounter for screening mammogram for breast cancer Procedures CAM SCREENING W NARENDRA SCREENING DIGITAL BREAST TOMOSYNTHESIS BI SCREENING MAMMOGRAPHY BI 2-[place] [address] [place] [id number] [facility] [address] [place] [address] Referral ID Status Reason Start Date Expiration Date Visits Requested Visits Authorized [id number] New Request Auto-Generat ed Referral 08/07/2024 09/06/2025 1 1 [facility] for referral (narrative)* Diagnostic Procedure Only (Routine) - Closed Specialty Diagnoses / Procedures Referred By Hermelinda t Referred To Contact [facility] Diagnoses Encounter for screening mammogram for breast cancer Procedures CAM SCREENING SCREENING MAMMOGRAPHY BI 2-[place] [address] [place] [id number] [facility] [address] [place] [phone] Referral ID Status Reason Start Date Expiration Date V isits Requested Visits Authorized [id number] Closed Auto-Generate d Referral 09/15/2021 10/15/2022 1 1 T [facility] for referral (narrative)* Outpatient Procedure (Routine) - Authorized Specialty Diagnoses / Procedures Referred By Hermelinda t Referred To Contact [facility] Diagnoses PMB (postmenopausal bleeding) Procedures ENDOMETRIAL BIOPSY ENDOMETRIAL BX W/WO ENDOCERVIX BX W/O DILAT SPX [place], Arline, TAKE OUT WAITER.MAIL DELIVERER [address] [place] [address] [facility] [place] [facility] [place] [address] [place] [address] Referral ID Status Reason Start Date Expiration Date Visits Requested Visits Authorized [id number] Authorized Auto-Generat ed Referral 09/05/2025 1 1 * Diagnostic Procedure Only (Routine) - Authorized Specialty Diagnoses / Procedures Referred By Contac t Referred To Contact [facility] Diagnoses PMB (postmenopausal bleeding) Procedures SONOHYSTEROGRAPHY (SIS) [facility] SALINE INFUS SONOHYSTEROGRAPHY W/COLOR DOPPLER Arline Haines APRN.CNP [address] [place] [address] [facility] [place] [facility] [place] [address] [place] [address] Referral ID Status Reason Start Date Expiration Date Visits Requested Visits Authorized [id number] Authorized Auto-Generat ed Referral 09/05/2025 1 1 [facility] for referral (narrative)* Outpatient Procedure (Routine) - Pending Review Specialty Diagnoses / Procedures Referred By Contmahin t Referred To Contact [facility] Diagnoses EMY II (cervical intraepithelial neoplasia II) Procedures OFFICE LEEP COLPOSCOPY CERVIX VAG ELTRD CONIZATION CERVIX Caren Byrnes MD [address] [place] [address] [facility] [place] [facility] [place] [address] [place] [phone] Referral ID Status Reason Start Date Expiration Date Visits Requested Visits Authorized [id number] Pending Review Auto-Generat ed Referral 4 11/07/2025 1 1 [facility] for visit Narrative* Outpatient Procedure (Routine) - Closed Specialty Diagnoses / Procedures Referred By Contac t Referred To Contact [facility] Diagnoses EMY II (cervical intraepithelial neoplasia II) Procedures OFFICE LEEP COLPOSCOPY CERVIX VAG ELTRD CONIZATION CERVIX Caern Byrnes MD [address] [place] [address] [address] Referral ID Status Reason Start Date Expiration Date V isits Requested Visits Authorized [id number] Closed Auto-Generate d Referral 11/07/2024 11/07/2025 1 1 [facility] Summary Purpose Family History No Family History Records Found Advance Directives No Advanced Directives Records Found Additional Source Comments Source Comments (unrecognize d section and content) In the event this informatio n is protected by the Federal Confidentiality of Alcohol and Drug Abuse Patient Records regulations: The Federal rules restrict any use of the information to criminally investigate or prosecute any alcohol or drug abuse patient.[facility] the event this information is protected by the Federal Confidentiality of Alcohol and Drug Abuse Patient Records regulations: The Federal rules restrict any use of the information to criminally investigate or prosecute any alcohol or drug abuse patient.[facility] the event this information is protected by the Federal Confidentiality of Alcohol and Drug Abuse Patient Records regulations: The Federal rules restrict any use of the information to criminally investigate or prosecute any alcohol or drug abuse patient.[facility] the event this information is protected by the Federal Confidentiality of Alcohol and Drug Abuse Patient Records regulations: The Federal rules restrict any use of the information to criminally investigate or prosecute any alcohol or drug abuse patient.[facility] HospitalIn the event this information is protected by the Federal Confidentiality of Alcohol and Drug Abuse Patient Records regulations: The Federal rules restrict any use of the information to criminally investigate or prosecute any alcohol or drug abuse patient.[facility] the event this information is protected by the Federal Confidentiality of Alcohol and Drug Abuse Patient Records regulations: The Federal rules restrict any use of the information to criminally investigate or prosecute any alcohol or drug abuse patient.[facility] the event this information is protected by the Federal Confidentiality of Alcohol and Drug Abuse Patient Records regulations: The Federal rules restrict any use of the information to criminally investigate or prosecute any alcohol or drug abuse patient.[facility] the event this information is protected by the Federal Confidentiality of Alcohol and Drug Abuse Patient Records regulations: The Federal rules restrict any use of the information to criminally investigate or prosecute any alcohol or drug abuse patient.[facility] the event this information is protected by the Federal Confidentiality of Alcohol and Drug Abuse Patient Records regulations: The Federal rules restrict any use of the information to criminally investigate or prosecute any alcohol or drug abuse patient.[facility] the event this information is protected by the Federal Confidentiality of Alcohol and Drug Abuse Patient Records regulations: The Federal rules restrict any use of the information to criminally investigate or prosecute any alcohol or drug abuse patient.[facility] the event this information is protected by the Federal Confidentiality of Alcohol and Drug Abuse Patient Records regulations: The Federal rules restrict any use of the information to criminally investigate or prosecute any alcohol or drug abuse patient.[facility] the event this information is protected by the Federal Confidentiality of Alcohol and Drug Abuse Patient Records regulations: The Federal rules restrict any use of the information to criminally investigate or prosecute any alcohol or drug abuse patient.[facility]In the event this information is protected by the Federal Confidentiality of Alcohol and Drug Abuse Patient Records regulations: The Federal rules restrict any use of the information to criminally investigate or prosecute any alcohol or drug abuse patient.[facility] HospitalIn the event this information is protected by the Federal Confidentiality of Alcohol and Drug Abuse Patient Records regulations: The Federal rules restrict any use of the information to criminally investigate or prosecute any alcohol or drug abuse patient.[facility] the event this information is protected by the Federal Confidentiality of Alcohol and Drug Abuse Patient Records regulations: The Federal rules restrict any use of the information to criminally investigate or prosecute any alcohol or drug abuse patient.[facility] HospitalIn the event this information is protected by the Federal Confidentiality of Alcohol and Drug Abuse Patient Records regulations: The Federal rules restrict any use of the information to criminally investigate or prosecute any alcohol or drug abuse patient.[facility] the event this information is protected by the Federal Confidentiality of Alcohol and Drug Abuse Patient Records regulations: The Federal rules restrict any use of the information to criminally investigate or prosecute any alcohol or drug abuse patient.[facility] HospitalIn the event this information is protected by the Federal Confidentiality of Alcohol and Drug Abuse Patient Records regulations: The Federal rules restrict any use of the information to criminally investigate or prosecute any alcohol or drug abuse patient.[facility] HospitalIn the event this information is protected by the Federal Confidentiality of Alcohol and Drug Abuse Patient Records regulations: The Federal rules restrict any use of the information to criminally investigate or prosecute any alcohol or drug abuse patient.[facility] HospitalIn the event this information is protected by the Federal Confidentiality of Alcohol and Drug Abuse Patient Records regulations: The Federal rules restrict any use of the information to criminally investigate or prosecute any alcohol or drug abuse patient.[facility] HospitalIn the event this information is protected by the Federal Confidentiality of Alcohol and Drug Abuse Patient Records regulations: The Federal rules restrict any use of the information to criminally investigate or prosecute any alcohol or drug abuse patient.[facility] HospitalIn the event this information is protected by the Federal Confidentiality of Alcohol and Drug Abuse Patient Records regulations: The Federal rules restrict any use of the information to criminally investigate or prosecute any alcohol or drug abuse patient.[facility] HospitalIn the event this information is protected by the Federal Confidentiality of Alcohol and Drug Abuse Patient Records regulations: The Federal rules restrict any use of the information to criminally investigate or prosecute any alcohol or drug abuse patient.[facility] Reason for Visit (unrecogniz ed section and content) Reason Comments Full Body Skin Check Reason Comments Physical CAM 07/26/2022-needs L abs for EHP Reason Comments Ear Pain Right ear pain since this morning Reason Comments Ear Pain Ear pain x 2 weeks, Sinus infection Reason Comments Radiology Mammogram Specialty Diagnoses / Procedures Referred By Contac t Referred To Contact [facility] Diagnoses Encounter for screening mammogram for breast cancer Procedures CAM SCREENING SCREENING MAMMOGRAPHY BI 2-[place] [address] [address] [facility] [address] [place] [address] Referral ID Status Reason Start Date Expiration Date V isits Requested Visits Authorized [id number] Closed Auto-Generate d Referral 09/15/2021 10/15/2022 1 1 Reason Comments Vaginal Problem Reason Comments us Specialty Diagnoses / Procedures Referred By Contac t Referred To Contact [facility] Diagnoses PMB (postmenopausal bleeding) Procedures ENDOMETRIAL BIOPSY ENDOMETRIAL BX W/WO ENDOCERVIX BX W/O DILAT SPX Babdani, Arline, TAKE OUT WAITER.MAIL DELIVERER [address] [place] [address] [facility] [facility] [place] [address] [place] [address] Referral ID Status Reason Start Date Expiration Date V isits Requested Visits Authorized [id number] Closed Auto-Generate d Referral 09/05/2024 09/05/2025 1 1 Reason Comments Colposcopy Specialty Diagnoses / Procedures Referred By Contac t Referred To Contact [facility] Diagnoses Human papillomavirus (HPV) type 16 DNA detected in cervical specimen Atypical squamous cells of undetermined significance (ASCUS) on Papanicolaou smear of cervix Procedures COLPOSCOPY COLPOSCOPY CERVIX BX CERVIX & ENDOCRV CURRETAGE Babaislinnak, Wortham, TAKE OUT WAITER.MAIL DELIVERER [address] [place] [address] [facility] [place] [address] [place] [address] Referral ID Status Reason Start Date Expiration Date V isits Requested Visits Authorized [id number] Closed Auto-Generate d Referral 09/12/2024 09/12/2025 1 1 Reason Comments Sinus Infection Entered by patient. Her eyes and sinuses hurt along with pressure in her ears for 2 weeks. Has been using mucinex and a nasal spray. Reason Comments Physical Seeing CHAIR FINISHER due to bleeding-PAP done positive HBV-doing more with RIBBON TIER next step sinus infection few weeks ago-ok now Reason Comments Abnormal Pap Reason Comments Post Op S/p LEEP Reason Comments URI Pressure in both ear s, ears are throbbing, nasal congestion started last week Reason Comments Repeat Pap Care Teams (unrecognized sec tion and content) Automatic [employer] Machine Tender Relationship Specialty Start Date End Date Sherine Castro MD PCP - General 05/19/09 Anil Posadas Consulting Obstetrics 05/30/14 Automatic Bow Maker Machine Tender Relationship Specialty Start Date End Date Sherine Castro MD PCP - General 05/19/09 Anil Posadas Consulting Obstetrics 05/30/14 Automatic Bow Maker Machine Tender Relationship Specialty Start Date End Date Sherine Castro MD PCP - General 05/19/09 Anil Posadas Consulting Obstetrics 05/30/14 Automatic Bow Maker Machine Tender Relationship Specialty Start Date End Date Sherine Castro MD PCP - General 05/19/09 Anil Posadas Consulting Obstetrics 05/30/14 Automatic Bow Maker Machine Tender Relationship Specialty Start Date End Date Sherine Castro MD PCP - General 05/19/09 Anil Posadas Consulting Obstetrics 05/30/14 Automatic Bow Maker Machine Tender Relationship Specialty Start Date End Date Sherine Castro MD PCP - General 05/19/09 Anil Posadas Consulting Obstetrics 05/30/14 Automatic Bow Maker Machine Tender Relationship Specialty Start Date End Date Sherine Castro MD PCP - General 05/19/09 Anil Posadas MD Consulting Obstetrics 05/30/14 Automatic Bow Maker Machine Tender Relationship Specialty Start Date End Date Sherine Castro MD PCP - General 05/19/09 Anil Posadas MD Consulting Obstetrics 05/30/14 Automatic Bow Maker Machine Tender Relationship Specialty Start Date End Date Sherine Castro MD PCP - General 05/19/09 Anil Posadas MD Consulting Obstetrics 05/30/14 Automatic Bow Maker Machine Tender Relationship Specialty Start Date End Date Sherine Castro MD PCP - General 05/19/09 Anil Posadas MD Consulting Obstetrics 05/30/14 Automatic Bow Maker Machine Tender Relationship Specialty Start Date End Date Sherine Castro MD PCP - General 05/19/09 Anil Posadas MD Consulting Obstetrics 05/30/14 Automatic Bow Maker Machine Tender Relationship Specialty Start Date End Date Sherine Castro MD PCP - General 05/19/09 Anil Posadas MD Consulting Obstetrics 05/30/14 Automatic Bow Maker Machine Tender Relationship Specialty Start Date End Date Sherine Castro MD PCP - General 05/19/09 Anil Posadas MD Consulting Obstetrics 05/30/14 Automatic Bow Maker Machine Tender Relationship Specialty Start Date End Date Sherine Castro MD PCP - General 05/19/09 Anil Posadas MD Consulting Obstetrics 05/30/14 Automatic Bow Maker Machine Tender Relationship Specialty Start Date End Date Sherine Castro MD PCP - General 05/19/09 Anil Posadas MD Consulting Obstetrics 05/30/14 Ale Jackman, TAKE OUT WAITER.MAIL DELIVERER [address] [place] [address] [employer] [facility] 10/27/24 Madhuri Marti PA-C [address] [place] [address] [employer] [facility] 10/27/24 Automatic Bow Maker Machine Tender Relationship Specialty Start Date End Date Sherine Castro MD PCP - General 05/19/09 Anil Posadas MD Consulting Obstetrics 05/30/14 Ale Jackman TAKE OUT WAITER.MAIL DELIVERER [address] [place] [address] [employer] [facility] 10/27/24 Madhuri Marti PA-C [address] [place] [address] [employer] [facility] 10/27/24 Automatic Bow Maker Machine Tender Relationship Specialty Start Date End Date Sherine Castro MD PCP - General 05/19/09 Anil Posadas MD Consulting Obstetrics 05/30/14 Ale Jackman, TAKE OUT WAITER.MAIL DELIVERER [address] [place] [address] [employer] [facility] 10/27/24 Madhuri Marti PA-C [address] [place] [address] [employer] [facility] 10/27/24 Automatic Bow Maker Machine Tender Relationship Specialty Start Date End Date Sherine Castro MD PCP - General 05/19/09 Anil Posadas MD Consulting Obstetrics 05/30/14 Ale Jackman, TAKE OUT WAITER.MAIL DELIVERER [address] [place] [address] [employer] [facility] 10/27/24 Madhuri Marti PA-C [address] [place] [address] [employer] [facility] 10/27/24 Automatic Bow Maker Machine Tender Relationship Specialty Start Date End Date Sherine Castro MD PCP - General 05/19/09 Anil Posadas MD Consulting Obstetrics 05/30/14 Ale Jackman, TAKE OUT WAITER.MAIL DELIVERER [address] [place] [address] [employer] [facility] 10/27/24 Madhuri Marti PA-C [address] [facility] [address] [employer] [facility] 10/27/24 Automatic Bow Maker Machine Tender Relationship Specialty Start Date End Date Sherine Castro MD PCP - General 05/19/09 Anil Posadas MD Consulting Obstetrics 05/30/14 Ale Jackman, TAKE OUT WAITER.MAIL DELIVERER [address] [place] [address] [employer] [facility] 10/27/24 Madhuri Marti PA-C [address] [place] [address] [employer] [facility] 10/27/24 Automatic Bow Maker Machine Tender Relationship Specialty Start Date End Date Sherine Castro MD PCP - General 05/19/09 Anil Posadas MD Consulting Obstetrics 05/30/14 Ale Jackman, TAKE OUT WAITER.MAIL DELIVERER [address] [place] [address] [employer] [facility] 10/27/24 Madhuri Marti PA-C [address] [place] [address] [employer] [facility] 10/27/24 Automatic Bow Maker Machine Tender Relationship Specialty Start Date End Date Sherine Castro MD PCP - General 05/19/09 Anil Posadas MD Consulting Obstetrics 05/30/14 Ale Jackman, TAKE OUT WAITER.MAIL DELIVERER [address] [place] [address] [facility] 10/27/24 Madhuri Marti PA-C [address] [place] [address] [facility] 10/27/24 Automatic Bow Maker Machine Tender Relationship Specialty Start Date End Date Sherine Castro MD PCP - General 05/19/09 Anil Posadas MD Consulting Obstetrics 05/30/14 Ale Jackman, TAKE OUT WAITER.MAIL DELIVERER [address] [place] [address] [facility] 10/27/24 Madhuri Marti PA-C [address] [place] [address] [facility] 10/27/24 INFORMATION SOURCE (unrecogn ized section and content) DATE CREATED AUTHOR 09/28/2025 [facility] FOR RECORDS PERTAINING TO PATIENTS WHO ARE OR HAVE BEEN ENROLLED IN A CHEMICAL DEPENDENCY/SUBSTANCEABUSE PROGRAM, SOME INFORMATION MAY BE OMITTED. This clinical summary was aggregated from multiple sources. Caution should be exercised in using it in the provision of clinical care. This summary normalizes information from multiple sources, and as a consequence, information in this document may materially change the coding, format and clinical context of patient data. In addition, data may be omitted in some cases. CLINICAL DECISIONS SHOULD BE BASED ON THE PRIMARY CLINICAL RECORDS. [facility] [employer] [facility] provides no warranty or guarantee of the accuracy or completeness of information in this document.
== END | disposition home or self-care (01) ==
LOC: ED 22:59
DX: Z00.00 Encounter for general adult medical examination without abnormal findings (principal)